=== PATIENT | male | born 1975 | race Caucasian/White ===

== ENCOUNTER 2018-01-06 21:57 | Inpatient (IN) | payer OTHER ==
[~2018-01-06] VITALS: Ht 172.7 cm; Wt 121.0 kg
[~2018-01-06 21:57] MED LIST: ALPR-411 PO; ASPI81TA28 PO; LISI-461 PO; PRED20TA PO; PRT/20 PO; TAMS0.4C38 PO
[2018-01-06] MEDS ORDERED: SODIUM CHLORIDE 0.9% 1000ML 1,000 ML IV STA ×2 (22:14→22:38)
[2018-01-06] MEDS ORDERED: VLT50 PO (22:17)
[2018-01-06] MEDS ORDERED: CYCL10TA6 PO (22:17)
[2018-01-06] MEDS ORDERED: SULF-302 PO (22:19)
[2018-01-06] MEDS ORDERED: VANCOMYCIN IV 2,750 MG in SODIUM CHLORIDE 0.9% 500ML 500 ML IV STA (22:20)
[2018-01-06] MEDS ORDERED: IMIPENEM/CILASTATIN IV 500 MG in DEXTROSE 5% 100ML 100 ML IV STA (22:20)
[2018-01-06] MEDS ORDERED: VANCOMYCIN CONSULT ACTIVE PRN (22:30)
[2018-01-06] MEDS ORDERED: OPTIRAY 320 IV PRN (22:30)
[2018-01-06] MEDS ORDERED: CLINDAMYCIN 600 MG/54 ML D5W IV ONE (22:30)
[2018-01-06 22:40] LABS: BASO % 0.2 %; BASO ABS # 0.03 K/uL (0-0.2); EOS % 1.4 %; HEMATOCRIT 43.5 % (42-52); HEMOGLOBIN 14.9 g/dL (14.0-18.0); IG# 0.03 K/uL (0.00-0.02); LYMPH ABS # 2.51 K/uL (1.2-3.4); MEAN CELL VOLUME 90.4 fL (80-100); MEAN CORPUSCULAR HGB CONC 34.3 g/dl (32-36); MEAN PLATELET VOLUME 11.1 fL (7.4-10.4); MONO % 7.1 %; MONO ABS # 0.99 K/uL (0.11-0.59); NEUT % 73.1 %; NEUT ABS # 10.15 K/uL (1.4-6.5); PLATELET COUNT 253 K/uL (130-400); RED CELL DISTRIBUTION WIDTH CV 12.9 % (11.5-14.5); RED CELL DISTRIBUTION WIDTH SD 42.5 fL (36.4-46.3); WHITE BLOOD COUNT 13.91 K/uL (4.8-10.8)
[2018-01-06 22:50] LABS: INR 0.9 (0.9-1.1); PTT PATIENT 30.3 SECONDS (21.0-31.0)
[2018-01-06 23:04] LABS: ALBUMIN 3.4 gm/dl (3.4-5.0); CALCIUM 8.7 mg/dl (8.5-10.1); POTASSIUM 3.7 mmol/L (3.5-5.1); TOTAL PROTEIN 7.7 gm/dl (6.4-8.2)
[2018-01-07] MEDS ORDERED: NICOTINE 14 MG/24 HR TDSY TD ONE (00:42)
[2018-01-07] MEDS ORDERED: MoRPHine SULFATE 4 MG/ML 1 ML CARP\\VIAL IV PRN (00:45)
[2018-01-07] MEDS ORDERED: ACETAMINOPHEN 325 MG TAB PO PRN (00:45)
[2018-01-07] MEDS ORDERED: IBUPROFEN 200 MG TAB PO PRN (00:45)
[2018-01-07] MEDS ORDERED: KETOROLAC TROMETHAMINE 30 MG/ML VIAL IV PRN (00:45)
[2018-01-07] MEDS ORDERED: LORAZEPAM 2 MG/ML 1 ML VIAL IV PRN (00:45)
[2018-01-07] MEDS ORDERED: PROCHLORPERAZINE INJ 5 MG in SYRINGE 4 ML IV PRN (00:45)
--- NOTE | 2018-01-07 01:23 | Progress Note ---
Progress Note Post Crystalloid Evaluation Date: Jan 07, 2018 Time: 01:20 Subjective Patient complaining of perineal pain. Physical Exam Vital Signs: Vital Signs Date Time Temp Pulse Resp B/P (MAP) Pulse Ox O2 Delivery O2 Flow Rate FiO2 01/07/18 01:11 90 18 147/85 93 01/06/18 21:59 36.7 Lungs: normal breath sounds Heart: regular rate, rhythm Capillary Refill: Normal (less than 2 seconds) Skin: [place] Assessment & Plan Severe sepsis secondary to perineal cellulitis SIRS plus lactic acid elevation CS, Doxycycline, Cipro. IVF
[2018-01-07] MEDS ORDERED: NSS + 20MEQ KCL 1000ML 1,000 ML IV ONE (02:00)
[2018-01-07 02:05] VITALS: BP 152/93; PULSE 84; TEMP 36.9; Ht 172.7 cm; Wt 121.0 kg
--- NOTE | 2018-01-07 02:19 | HISTORY & PHYSICAL EXAMINATION ---
DATE OF ADMISSION: 01/07/2018 PCP : Dr. Alfred CHIEF COMPLAINT: "bump on my balls" HISTORY OF PRESENT ILLNESS: History obtained from patient and records. Medical history is significant for hypertension, arthritis, ongoing tobacco abuse. Recent confinement under Orthopedics service last October 2014 for right shoulder surgery. Four-day history of painful swelling close to the testicles- "bump on my ball." No trauma. No previous episodes. No abdominal/back pain. No diarrhea, no rectal pain. No dysuria. No fever, no chills. Was seen at urgent care center in [place]. Prescribed Bactrim. Surgery referral recommended. Patient consulted ER due to worsening swelling. Patient received IV Vancomycin and Imipenem at the ER. MEDICAL HISTORY: As above. SURGERIES: Orthopedic procedures. Facial wound repair for dog bite from childhood. HOME MEDICATIONS: Include lisinopril, diclofenac, Flexeril, Protonix, Bactrim. ALLERGIES: CODEINE, TRAMADOL. FAMILY HISTORY: Diabetes. PERSONAL AND SOCIAL HISTORY: Half pack daily. No chronic intake of alcoholic beverages. glass work REVIEW OF SYSTEMS: As per HPI, all 10 systems reviewed, all other ROS negative. PHYSICAL EXAMINATION: VITAL SIGNS: Blood pressure was noted to be 178/102, later 130/80, pulse rate 95, RR 18, temperature 36.7, sats 96 on room air. GENERAL: Noted to be obese, looks older than stated age, no respiratory distress. SKIN: Normal color, warm. HEENT: Alopecia, bespectacled. Ragan palpebral conjunctivae. No ptosis. Dry mucosa. Healed scar, left zygomatic area. NECK: Short, supple. CHEST: Clear to auscultation, no tenderness. HEART: Regular rate and rhythm. No murmur. ABDOMEN/PELVIS: Some distention, nontender. No diarrhea, no rectal pain. Tender induration, perineal area. EXTREMITIES: No edema, no tenderness, no gross deformities. NEUROLOGIC: Coherent, no gross focality. LABORATORY DATA: Hemoglobin was noted to be 14.9, hematocrit 42.5, white blood cell count 13.9, platelets noted to be 253. Sodium noted to be 137, potassium 4, chloride 103, CO2 of 25, glucose 142. Point of care lactic acid 2.04. CT pelvis initial read, increased markings, right perineal soft tissues, nonspecific, no fluid collection. ASSESSMENT: 1. Severe sepsis secondary to perineal cellulitis SIRS plus lactic acid elevation Failed outpatient Rx 2. Hypertension, stable. 3. Ongoing tobacco abuse. 4. Hyperglycemia ro DM. PLAN: GMF CS, Doxycycline, Cipro. Local measures for perianal cellulitis. May need Surgery eval if with worsening. Check hemoglobin A1c. Nicotine patch. DVT prophylaxis, Lovenox subQ. Full code. MTDD
[2018-01-07] MEDS ORDERED: LORAZEPAM INJ 0.5 MG in SYRINGE 0.75 ML IV PRN (02:45)
[2018-01-07] MEDS: CIPROFLOXACIN 400MG / D5W IV SCH ×2 (04:57→15:36)
--- NOTE | 2018-01-07 05:37 | EMERGENCY ROOM VISIT NOTE ---
History First contact with patient: 22:02 Chief Complaint: TESTICULAR PAIN Stated Complaint: TESTICULAR PAIN Nursing Triage Summary: Pt presents with c/o right testicular lump. States seen at urgent care and was told to follow up with surgeon. States told at that time if sx worsened to come to the ER. Pt reports increased pain. Denies open areas/drainage. History of Present Illness The patient is a 42 year old male who presents to the Emergency Room with complaints of severe increasing perineal pain for the past few days who went to urgent care on and was placed on Bactrim. Patient states the pain and swelling has gotten worse. He describes the pain as severe, 8 out of 10. Worse with palpation and better with rest. Patient denies history of diabetes, recreational drug use or IV drug abuse. She occasionally smokes. No control. Patient complains of pain from his scrotum to his rectal area. Patient denies chest pain, dyspnea, fever, chills, nausea, vomiting, diarrhea, urinary symptoms, penile pain, rectal pain. Review of Systems An 10 system review of systems was completed with positives and pertinent negatives listed in the HPI. Past Medical/Surgical History Medical Problems: (1) Anxiety State Nos (2) Calculus Of Kidney (3) Esophageal Reflux (4) Hypertension Nos (5) Sepsis (6) Tobacco Use Disorder Surgical Problems: (1) History of arthroscopy of shoulder Family History Patient reports no known family medical history. Social History Smoking Status: Current Every Day Smoker Alcohol Use: occasionally Marital Status: Occupation Status: employed Current/Historical Medications Scheduled Cyclobenzaprine Hcl (Flexeril), 10 MG PO DAILY Diclofenac Sod (Diclofenac Sodium Dr), 50 MG PO BID Lisinopril (Lisinopril), 10 MG PO QAM Pantoprazole (Protonix), 20 MG PO QAM Sulfamethoxazole-Trimethoprim (Smz-Tmp Ds), 1 TAB PO BID Physical Exam Vital Signs Date Time Temp Pulse Resp B/P (MAP) Pulse Ox O2 Delivery O2 Flow Rate FiO2 01/06/18 23:32 95 18 133/87 96 Room Air 01/06/18 21:59 36.7 109 20 178/102 96 Room Air Physical Exam VITALS: Vitals are noted on the nurse's note and reviewed by myself. Vital signs hypertensive. GENERAL: White male, in no acute distress, nondiaphoretic, well-developed well- nourished. SKIN: The perineum is erythematous and edematous and exquisitely tender to palpation concerning for infection. The rest of the skin was without rashes, erythema, edema, or bruising. There is no tenting of the skin. Capillary reflex less than 2 seconds. HEAD: Normocephalic atraumatic. EARS: External auditory canals clear, tympanic membranes pearly hardy without erythema or effusion bilaterally. EYES: Pupils equal round and reactive to light and accommodation. Conjunctivae without injection, sclerae without icterus. Extraocular movements intact. NOSE: Patent, turbinates without inflammation or discharge. MOUTH: Mucous membranes moist. Pharynx without erythema or exudate. Uvula midline. Airway patent. Tongue does not deviate. NECK: Supple without nuchal rigidity. No lymphadenopathy. No thyromegaly. Cervical spine is nontender. No JVD. HEART: Regular rate and rhythm without murmurs gallops or rubs. LUNGS: Clear to auscultation bilaterally without wheezes, rales or rhonchi. No retractions or accessory muscle use. ABDOMEN: Positive bowel sounds x 4. Normal tympanic percussion. Soft, nontender, without masses or organomegaly. Gonzalez sign negative. No guarding or rebound tenderness. No CVA tenderness exam: Normal male genitalia, testicles nontender to palpation, perineum erythematous and edematous and exquisitely tender to palpation concerning for infection. No crepitus. MUSCULOSKELETAL: No muscle atrophy, erythema, or edema noted. NEURO: Patient was alert and oriented to person place and time. Normal sensation to light and sharp touch. No focal neurological deficits. Medical Decision & Procedures Laboratory Results 01/06/18 22:28 Test 01/06/18 22:28 01/06/18 22:34 01/06/18 23:30 RDW Standard Deviation 42.5 fL (36.4-46.3) RDW Coefficient of Variation 12.9 % (11.5-14.5) White Blood Count 13.91 K/uL (4.8-10.8) Red Blood Count 4.81 M/uL (4.7-6.1) Hemoglobin 14.9 g/dL (14.0-18.0) Hematocrit 43.5 % (42-52) Mean Corpuscular Volume 90.4 fL (80-100) Mean Corpuscular Hemoglobin 31.0 pg (25-34) Mean Corpuscular Hemoglobin Concent 34.3 g/dl (32-36) Platelet Count 253 K/uL (130-400) Mean Platelet Volume 11.1 fL (7.4-10.4) Neutrophils (%) (Auto) 73.1 % Lymphocytes (%) (Auto) 18.0 % Monocytes (%) (Auto) 7.1 % Eosinophils (%) (Auto) 1.4 % Basophils (%) (Auto) 0.2 % Neutrophils # (Auto) 10.15 K/uL (1.4-6.5) Lymphocytes # (Auto) 2.51 K/uL (1.2-3.4) Monocytes # (Auto) 0.99 K/uL (0.11-0.59) Eosinophils # (Auto) 0.20 K/uL (0-0.5) Basophils # (Auto) 0.03 K/uL (0-0.2) Immature Granulocyte % (Auto) 0.2 % Immature Granulocyte # (Auto) 0.03 K/uL (0.00-0.02) Erythrocyte Sedimentation Rate 17 mm/hr (0-14) Prothrombin Time 9.4 SECONDS (9.0-12.0) Prothromb Time International Ratio 0.9 (0.9-1.1) Activated Partial Thromboplast Time 30.3 SECONDS (21.0-31.0) Partial Thromboplastin Ratio 1.2 Anion Gap 9.0 mmol/L (3-11) Est Creatinine Clear Calc Drug Dose 122.1 ml/min Estimated GFR () 107.9 Estimated GFR (Non- 93.1 BUN/Creatinine Ratio 11.0 (10-20) Calcium Level 8.7 mg/dl (8.5-10.1) Magnesium Level 2.0 mg/dl (1.8-2.4) Total Bilirubin 0.2 mg/dl (0.2-1) Aspartate Amino Transf (AST/SGOT) 22 U/L (15-37) Alanine Aminotransferase (ALT/SGPT) 45 U/L (12-78) Alkaline Phosphatase 92 U/L (45-117) C-Reactive Protein 3.88 mg/dl (0-0.29) Total Protein 7.7 gm/dl (6.4-8.2) Albumin 3.4 gm/dl (3.4-5.0) Globulin 4.3 gm/dl (2.5-4.0) Albumin/Globulin Ratio 0.8 (0.9-2) Procalcitonin < 0.05 ng/ml (0-0.5) Thyroid Stimulating Hormone (TSH) 4.430 uIu/ml (0.300-4.500) Bedside Lactic Acid Venous 2.04 mmol/L (0.90-1.70) Urine Color YELLOW Urine Appearance CLEAR (CLEAR) Urine pH 7.0 (4.5-7.5) Urine Specific [place] 1.043 (1.000-1.030) Urine Protein NEG (NEG) Urine Glucose (UA) NEG (NEG) Urine Ketones NEG (NEG) Urine Occult Blood NEG (NEG) Urine Nitrite NEG (NEG) Urine Bilirubin NEG (NEG) Urine Urobilinogen NEG (NEG) Urine Leukocyte Esterase NEG (NEG) Urine WBC (Auto) 0 /hpf (0-5) Urine RBC (Auto) 0-4 /hpf (0-4) Urine Hyaline Casts (Auto) 0 /lpf (0-5) Urine Epithelial Cells (Auto) 0-5 /lpf (0-5) Urine Bacteria (Auto) NEG (NEG) Medications Administered Medications (Trade) Dose Ordered Sig/Josué Route Start Time Stop Time Status Last Admin Dose Admin Sodium Chloride 1,000 ml @ 999 mls/hr Q1H1M STAT IV 01/06/18 22:14 01/06/18 23:14 DC 01/06/18 22:44 999 MLS/HR Clindamycin Phosphate (Cleocin 600mg/ 54ml D5W) 600 mg ONE ONCE IV 01/06/18 22:30 01/06/18 22:31 DC 01/06/18 22:49 600 MG Vancomycin HCl 2750 mg/Sodium Chloride 555 ml @ 200 mls/hr ONE STAT IV 01/06/18 22:20 01/07/18 01:06 DC 01/06/18 22:44 200 MLS/HR Imipenem/ Cilastatin Sodium 500 mg/Dextrose 110 ml @ 100 mls/hr NOW STAT IV 01/06/18 22:20 01/06/18 23:25 DC 01/06/18 23:57 100 MLS/HR Sodium Chloride 1,000 ml @ 999 mls/hr Q1H1M STAT IV 01/06/18 22:38 01/06/18 23:38 DC 01/06/18 22:44 999 MLS/HR ED Course Prior records reviewed and summarized as above. Triage Nursing notes reviewed. Additional history obtained from family The patient's history was concerning for swelling and redness of the skin to the perineal area. Differential diagnosis: Etiologies such as FG, cellulitis, abscess, MRSA infection, necrotizing fasciitis, dermatitis, drug eruption, as well as others were entertained.. Physical examination: as above ER treatment provided: Cleocin, vanco, Primaxin, NSS On reassessment the patient felt better. Diagnostics interpreted by me: The labs revealed leukocytosis. Hyperglycemia without DKA. Elevated lactic acid Imaging studies: CT PELVIS: Slight increased markings in the right perineal soft tissues. This is nonspecific. No fluid collection. Radiologist: Yuan Castillo MD Study ready at 23:29 and initial results transmitted at 23:51 Consultation: A consultation was placed with Dr. Hernandez, hospitalist. The case was discussed and diagnostics were reviewed. The patient was evaluated in the ER for further treatment. This appears to be worsening cellulitis to the perineum. Patient's been on Bactrim. Symptoms have gotten worse. He was given broad-spectrum antibiotics. He was hydrated as above. He will be evaluated by medicine for possible admission for failure outpatient. Patient had no signs of Andrew's gangrene on exam. There was no crepitus or free air. By the evaluation outlined above emergent etiologies such as abscess, as well as others were deemed relatively unlikely. The pt informed about the findings as listed above. All questions were answered and pleased with the treatment. Case reviewed with my attending The chart was completed utilizing [employer] Speech voice recognition software. Grammatical errors, random word insertions, pronoun errors, and incomplete sentences are an occassional consequence of this system due to software limitations, ambient noise, and hardware issues. Any formal questions or concerns about the content, text, or information contained within the body of this dictation should be directly addressed to the physician business development assistant for clarification. Medical Decision As above Medication Reconcilliation Current Medication List: was personally reviewed by me Blood Pressure Screening Patient's blood pressure: Elevated blood pressure Blood pressure disposition: Elevated BP felt to be situational Impression Primary Impression: Cellulitis of perineum Departure Information Dispostion Being Evaluated By Hospitalist Condition GOOD Referrals Bautista Alfred M.D. (PCP) Patient Instructions [facility]
[2018-01-07 06:37] LABS: BASO % 0.1 %; BASO ABS # 0.01 K/uL (0-0.2); EOS % 2.2 %; EOS ABS # 0.22 K/uL (0-0.5); HEMATOCRIT 42.6 % (42-52); HEMOGLOBIN 14.5 g/dL (14.0-18.0); IG# 0.03 K/uL (0.00-0.02); LYMPH % 18.7 %; LYMPH ABS # 1.91 K/uL (1.2-3.4); MEAN PLATELET VOLUME 11.3 fL (7.4-10.4); MONO % 10.4 %; MONO ABS # 1.06 K/uL (0.11-0.59); NEUT % 68.3 %; NEUT ABS # 6.99 K/uL (1.4-6.5); PLATELET COUNT 236 K/uL (130-400); RED CELL DISTRIBUTION WIDTH CV 13.1 % (11.5-14.5); RED CELL DISTRIBUTION WIDTH SD 43.5 fL (36.4-46.3); WHITE BLOOD COUNT 10.22 K/uL (4.8-10.8)
--- NOTE | 2018-01-07 07:06 | DIAGNOSTIC IMAGING REPORT ---
PELVIS W/IV CONT ONLY (CT) HISTORY: 42 years-old Male acute pain and swelling within the perineal soft tissues and scrotum with concern for possible abscess. COMPARISON: CT abdomen and pelvis 01/29/2015 TECHNIQUE: Multiple axial CT images of the pelvis were obtained following the intravenous administration of 90 mL Optiray 320 IV contrast. A dose lowering technique was used consistent with the principals of DANO. FINDINGS: No acute intrapelvic abnormality identified. Rectosigmoid, terminal ileum and appendix appear normal. Bladder is within normal limits. Iliac vasculature appears patent. Mildly enlarged bilateral inguinal chain lymph nodes measuring up to 12 mm in short axis on the right are noted. There is moderate skin thickening with subcutaneous edema about the posterior scrotum with extension into the right perineum. No peripherally enhancing fluid collection or subcutaneous emphysema. The anal and perianal tissues appear unremarkable. There may be a small right hydrocele. Muscle of the pelvis appear unremarkable. Facet arthropathy of the lower lumbar spine. No acute fracture or dislocation. IMPRESSION: 1. No acute intrapelvic abnormality identified. Normal appendix. 2. Moderate skin thickening with subcutaneous stranding involving the posterior scrotum with mild subcutaneous edema extending into the right perineal tissues suggests cellulitis/phlegmon. No evidence of abscess or fasciitis. 3. Mild bilateral inguinal chain adenopathy, likely reactive. The above report was generated using voice recognition software. It may contain grammatical, syntax or spelling errors. Electronically signed by: Chaparro Soliman M.D. 01/07/2018 7:05 AM Dictated Date/Time: 01/07/2018 7:00 AM
[2018-01-07] MEDS: DOXYCYCLINE IV 100 MG in DEXTROSE 5% 100ML 100 ML IV SCH ×2 (07:11→17:32)
[2018-01-07 07:29] VITALS: BP 124/80; PULSE 84; TEMP 36.9; O2SAT 96
[2018-01-07] MEDS: LACTOBACILLUS ACIDOPHILUS 1 GM PACK PO SCH ×3 (08:41→15:36)
[2018-01-07] MEDS: PANTOprazole SOD 40 MG TAB PO SCH (08:41)
[2018-01-07] MEDS: NICOTINE 14 MG/24 HR TDSY TD SCH (08:41)
[2018-01-07] MEDS: LISINOPRIL 10 MG TAB PO SCH (08:41)
[2018-01-07] MEDS: ENOXAPARIN 40 MG/0.4 ML SYR SQ SCH (08:42)
[2018-01-07] MEDS ORDERED: CIPROFLOXACIN CONSULT ACTIVE PRN (09:00)
[2018-01-07 15:00] VITALS: BP 129/83; PULSE 81; TEMP 36.5; O2SAT 96
[2018-01-07] MEDS: OXYCODONE/ACETAMINOPHEN 5-325 TAB PO PRN (21:52)
[2018-01-07 22:55] VITALS: BP 113/66; PULSE 81; TEMP 36.6; O2SAT 95
[2018-01-08] MEDS: CIPROFLOXACIN 400MG / D5W IV SCH ×2 (04:39→16:10)
[2018-01-08 06:37] LABS: HEMOGLOBIN A1C 6.5 % (4.5-5.6)
[2018-01-08] MEDS: DOXYCYCLINE IV 100 MG in DEXTROSE 5% 100ML 100 ML IV SCH ×2 (06:41→18:28)
[2018-01-08] MEDS: LISINOPRIL 10 MG TAB PO SCH (07:55)
[2018-01-08] MEDS: LACTOBACILLUS ACIDOPHILUS 1 GM PACK PO SCH ×3 (07:55→17:17)
[2018-01-08] MEDS: PANTOprazole SOD 40 MG TAB PO SCH (07:55)
[2018-01-08] MEDS: NICOTINE 14 MG/24 HR TDSY TD SCH (07:55)
[2018-01-08 07:56] VITALS: BP 135/87; PULSE 73; TEMP 36.7; O2SAT 96
[2018-01-08] MEDS: ENOXAPARIN 40 MG/0.4 ML SYR SQ SCH (07:57)
[2018-01-08] MEDS: OXYCODONE/ACETAMINOPHEN 5-325 TAB PO PRN ×2 (10:04→16:17)
--- NOTE | 2018-01-08 12:55 | Progress Note ---
Subjective Date of Service: Jan 08, 2018. Subjective Pt evaluation today including: conversation w/ patient, physical exam, lab review, review of studies, review of inpatient medication list Saw/examined the patient in room 263 He's doing better, states his perineum is not as tender or swollen as it was Cellulitic appearance remains but appears to be improving Eager to go home Problem List Medical Problems: (1) Cellulitis of perineum Status: Acute Review of Systems Constitutional: No fever, No chills Respiratory: No shortness of breath Cardiac: No chest pain Abdomen: No pain, No nausea, No vomiting, No diarrhea Male : + problem reported (perineal swelling) Medications Current Inpatient Medications Medications (Trade) Dose Ordered Sig/Josué Route Start Time Stop Time Status Last Admin Dose Admin Ioversol (Optiray 320) 100 ml UD PRN IV 01/06/18 22:30 01/10/18 22:29 Nicotine (Nicoderm Cq 14MG Patch) 1 patch QAM TD 01/07/18 09:00 02/06/18 08:59 01/08/18 07:55 1 PATCH Miscellaneous (Remove Nicoderm Patch) 1 ea HS N/A 01/07/18 21:00 02/06/18 20:59 Doxycycline Hyclate 100 mg/ Dextrose 110 ml @ 50 mls/hr Q12H IV 01/07/18 06:00 01/17/18 05:59 01/08/18 06:41 50 MLS/HR Ciprofloxacin (Consult) 1 ea UD PRN N/A 01/07/18 09:00 02/06/18 08:59 Ketorolac Tromethamine (Toradol Inj) 30 mg Q6H PRN IV 01/07/18 00:45 01/12/18 00:44 Ibuprofen (Advil Tab) 400 mg Q6H PRN PO 01/07/18 00:45 02/06/18 00:44 Lorazepam (Ativan Inj) 0.5 mg Q4H PRN IV 01/07/18 00:45 02/06/18 00:44 Prochlorperazine Edisylate 5 mg/ Syringe 5 ml @ 5 mls/min Q6H PRN IV 01/07/18 00:45 02/06/18 00:44 Morphine Sulfate (MoRPHine SULFATE INJ) 4 mg Q6H PRN IV 01/07/18 00:45 01/21/18 00:44 Oxycodone/ Acetaminophen (Percocet 5-325mg Tab) 1 tab Q6H PRN PO 01/07/18 00:45 01/21/18 00:44 01/08/18 10:04 1 TAB Enoxaparin Sodium (Lovenox Inj) 40 mg Q24H SQ 01/07/18 08:00 02/06/18 07:59 Acetaminophen (Tylenol Tab) 650 mg Q4H PRN PO 01/07/18 00:45 02/06/18 00:44 Lactobacillus Acidophilus (Lactinex Granules Pack) 1 gm TIDM PO 01/07/18 08:00 02/06/18 07:59 01/08/18 12:05 1 GM Lisinopril (Zestril Tab) 10 mg QAM PO 01/07/18 09:00 02/06/18 08:59 01/08/18 07:55 10 MG Pantoprazole Sodium (Protonix Tab) 40 mg QAM PO 01/07/18 09:00 02/06/18 08:59 01/08/18 07:55 40 MG Ciprofloxacin/ Dextrose 400 mg/ Prmx 200 ml @ 100 mls/hr Q12H IV 01/07/18 04:00 01/17/18 03:59 01/08/18 04:39 100 MLS/HR Lorazepam 0.5 mg/ Syringe 1 ml @ 1 mls/min Q4H PRN IV 01/07/18 02:45 02/06/18 02:44 Objective Vital Signs Date Time Temp Pulse Resp B/P (MAP) Pulse Ox O2 Delivery O2 Flow Rate FiO2 01/08/18 08:00 Room Air 01/08/18 07:56 36.7 73 18 135/87 (103) 96 Room Air 01/08/18 00:00 Room Air 01/07/18 22:55 36.6 81 18 113/66 (82) 95 Room Air 01/07/18 17:00 Room Air 01/07/18 15:00 36.5 81 16 129/83 (98) 96 Room Air Physical Exam General Appearance: no apparent distress Respiratory/Chest: lungs clear, normal breath sounds, no respiratory distress, no accessory muscle use Cardiovascular: regular rate, rhythm, no edema, no murmur Abdomen: + pertinent finding (perineal swelling, erythema, mildly warm to touch ) Extremities: normal inspection, no pedal edema Neurologic/Psychiatric: no motor/sensory deficits, alert, normal mood/affect Assessment and Plan This is a 42 year old obese male with a past medical history of HTN, GERD - presents with perineal cellulitis Perineal Cellulitis - was on Bactrim x2 days, with no help - presented here, received IV Cipro and Doxy with good improvement - afebrile, white count resolved - will likely d/c home on 01/08 with oral Cipro and Doxycycline New Onset DM2 - Ha1c is 6.5%, BSGs elevated on admission - will not start any medication, recommended dietary changes with outpatient PCP follow-up and repeat Ha1c in 3 months HTN - continue Lisinopril DVT ppx - Lovenox FULL CODE
[2018-01-08 15:34] VITALS: BP 131/78; PULSE 77; TEMP 36.7; O2SAT 95
[2018-01-08 16:00] VITALS: O2SAT 95
[2018-01-09] VITALS: BP 135/88; PULSE 83; TEMP 37.1; O2SAT 95
[2018-01-09] MEDS: CIPROFLOXACIN 400MG / D5W IV SCH (04:04)
[2018-01-09] MEDS: DOXYCYCLINE IV 100 MG in DEXTROSE 5% 100ML 100 ML IV SCH (06:04)
[2018-01-09 07:08] LABS: HEMOGLOBIN 16.6 g/dL (14.0-18.0); MEAN CELL VOLUME 92.1 fL (80-100); MEAN CORPUSCULAR HEMOGLOBIN 30.6 pg (25-34); MEAN CORPUSCULAR HGB CONC 33.2 g/dl (32-36); PLATELET COUNT 277 K/uL (130-400); RED CELL DISTRIBUTION WIDTH CV 13.2 % (11.5-14.5); WHITE BLOOD COUNT 10.45 K/uL (4.8-10.8)
[2018-01-09 07:35] LABS: CALCIUM 9.4 mg/dl (8.5-10.1); CREATININE 0.86 mg/dl (0.60-1.40)
[2018-01-09 07:47] VITALS: BP 119/87; PULSE 101; TEMP 36.8; O2SAT 93
[2018-01-09] MEDS: ENOXAPARIN 40 MG/0.4 ML SYR SQ SCH (07:52)
[2018-01-09] MEDS: PANTOprazole SOD 40 MG TAB PO SCH (07:53)
[2018-01-09] MEDS: LACTOBACILLUS ACIDOPHILUS 1 GM PACK PO SCH ×2 (07:53→12:48)
[2018-01-09] MEDS: LISINOPRIL 10 MG TAB PO SCH (07:54)
[2018-01-09] MEDS: NICOTINE 14 MG/24 HR TDSY TD SCH (07:54)
[2018-01-09] MEDS: OXYCODONE/ACETAMINOPHEN 5-325 TAB PO PRN (07:59)
--- NOTE | 2018-01-09 11:27 | Progress Note ---
Subjective Date of Service: Jan 09, 2018. Subjective Pt evaluation today including: conversation w/ patient, physical exam, lab review, review of studies, review of inpatient medication list Saw/examined the patient in room 263 He's doing well today; feels much better and is eager to go home Denies any chest pain/shortness of breath, denies fevers/chills Perineal cellulitis improving Problem List Medical Problems: (1) Cellulitis of perineum Status: Acute Review of Systems Constitutional: No fever, No chills Respiratory: No shortness of breath Cardiac: No chest pain Abdomen: No pain, No nausea, No vomiting, No diarrhea Musculoskeletal: No joint pain Medications Current Inpatient Medications Medications (Trade) Dose Ordered Sig/Joséu Route Start Time Stop Time Status Last Admin Dose Admin Ioversol (Optiray 320) 100 ml UD PRN IV 01/06/18 22:30 01/10/18 22:29 Nicotine (Nicoderm Cq 14MG Patch) 1 patch QAM TD 01/07/18 09:00 02/06/18 08:59 01/09/18 07:54 1 PATCH Miscellaneous (Remove Nicoderm Patch) 1 ea HS N/A 01/07/18 21:00 02/06/18 20:59 01/08/18 20:34 1 EA Ciprofloxacin (Consult) 1 ea UD PRN N/A 01/07/18 09:00 02/06/18 08:59 Ketorolac Tromethamine (Toradol Inj) 30 mg Q6H PRN IV 01/07/18 00:45 01/12/18 00:44 Ibuprofen (Advil Tab) 400 mg Q6H PRN PO 01/07/18 00:45 02/06/18 00:44 Lorazepam (Ativan Inj) 0.5 mg Q4H PRN IV 01/07/18 00:45 02/06/18 00:44 Prochlorperazine Edisylate 5 mg/ Syringe 5 ml @ 5 mls/min Q6H PRN IV 01/07/18 00:45 02/06/18 00:44 Morphine Sulfate (MoRPHine SULFATE INJ) 4 mg Q6H PRN IV 01/07/18 00:45 01/21/18 00:44 Oxycodone/ Acetaminophen (Percocet 5-325mg Tab) 1 tab Q6H PRN PO 01/07/18 00:45 01/21/18 00:44 01/09/18 07:59 1 TAB Enoxaparin Sodium (Lovenox Inj) 40 mg Q24H SQ 01/07/18 08:00 02/06/18 07:59 Acetaminophen (Tylenol Tab) 650 mg Q4H PRN PO 01/07/18 00:45 02/06/18 00:44 Lactobacillus Acidophilus (Lactinex Granules Pack) 1 gm TIDM PO 01/07/18 08:00 02/06/18 07:59 01/09/18 07:53 1 GM Lisinopril (Zestril Tab) 10 mg QAM PO 01/07/18 09:00 02/06/18 08:59 01/09/18 07:54 10 MG Pantoprazole Sodium (Protonix Tab) 40 mg QAM PO 01/07/18 09:00 02/06/18 08:59 01/09/18 07:53 40 MG Lorazepam 0.5 mg/ Syringe 1 ml @ 1 mls/min Q4H PRN IV 01/07/18 02:45 02/06/18 02:44 Ciprofloxacin (Cipro Tab) 500 mg BID PO 01/09/18 21:00 01/17/18 03:59 Doxycycline Hyclate (Vibramycin Cap) 100 mg BID PO 01/09/18 21:00 01/17/18 05:59 Objective Vital Signs Date Time Temp Pulse Resp B/P (MAP) Pulse Ox O2 Delivery O2 Flow Rate FiO2 01/09/18 08:00 Room Air 01/09/18 07:47 36.8 101 18 119/87 (98) 93 Room Air 01/09/18 00:00 37.1 83 20 135/88 (104) 95 Room Air 01/09/18 00:00 Room Air 01/08/18 16:00 95 Room Air 01/08/18 15:34 36.7 77 20 131/78 (95) 95 Physical Exam General Appearance: no apparent distress, + obese Respiratory/Chest: lungs clear, normal breath sounds, no respiratory distress, no accessory muscle use Cardiovascular: regular rate, rhythm, no edema, no murmur Abdomen: + pertinent finding (erythema; perineal cellulitis, improved) Laboratory Results Last 24 Hours Test 01/09/18 06:37 White Blood Count 10.45 K/uL Red Blood Count 5.43 M/uL Hemoglobin 16.6 g/dL Hematocrit 50.0 % Mean Corpuscular Volume 92.1 fL Mean Corpuscular Hemoglobin 30.6 pg Mean Corpuscular Hemoglobin Concent 33.2 g/dl RDW Standard Deviation 44.0 fL RDW Coefficient of Variation 13.2 % Platelet Count 277 K/uL Mean Platelet Volume 11.0 fL Sodium Level 137 mmol/L Potassium Level 4.0 mmol/L Chloride Level 101 mmol/L Carbon Dioxide Level 30 mmol/L Anion Gap 6.0 mmol/L Blood Urea Nitrogen 11 mg/dl Creatinine 0.86 mg/dl Est Creatinine Clear Calc Drug Dose 143.0 ml/min Estimated GFR () 124.8 Estimated GFR (Non- 107.7 BUN/Creatinine Ratio 13.3 Random Glucose 110 mg/dl Calcium Level 9.4 mg/dl Assessment and Plan This is a 42 year old obese male with a past medical history of HTN, GERD - presents with perineal cellulitis Sepsis secondary to Perineal Cellulitis 01/09 - will d/c home on Cipro and Doxycycline for another 14 days - check [place] drug monitoring, he gets Vicodin 90 tablets monthly so will not prescribe any other narcotics 01/08 - was on Bactrim x2 days, with no help - presented here, received IV Cipro and Doxy with good improvement - afebrile, white count resolved - will likely d/c home on 01/08 with oral Cipro and Doxycycline New Onset DM2 - Ha1c is 6.5%, BSGs elevated on admission - will not start any medication, recommended dietary changes with outpatient PCP follow-up and repeat Ha1c in 3 months HTN - continue Lisinopril DVT ppx - Lovenox FULL CODE
[2018-01-09] MEDS ORDERED: NICO14DI5 TD (11:28)
[2018-01-09] MEDS ORDERED: CPR500 PO (11:28)
[2018-01-09] MEDS ORDERED: DXY100 PO (11:28)
[2018-01-09] MEDS ORDERED: HYDR-5688 PO (11:30)
--- NOTE | 2018-01-09 11:32 | Discharge Instructions ---
Discharge Instructions Date of Service Jan 09, 2018. Admission Reason for Admission: Sepsis Discharge Discharge Diagnosis / Problem: Sepsis (infection) with cellulitis Discharge Goals Goal(s): Decrease discomfort, Improve function, Diagnostic testing, Therapeutic intervention Activity Recommendations Activity Limitations: resume your previous activity . Instructions / Follow-Up Instructions / Follow-Up Please follow-up with your primary care physician within the next week * You will be on Cipro and Doxycycline (antibiotics) - take these for the next 10 days * Your Ha1c is 6.5% - this is a sign of diabetes - you should monitor your diet and implement an exercise regimen; your primary care doctor should recheck your Ha1c in 3 months Current Hospital Diet Patient's current hospital diet: AHA Diet (Heart Healthy) Discharge Diet Recommended Diet: AHA Diet (Heart Healthy) Pending Studies Studies pending at discharge: no Laboratory Results Hemoglobin A1c Test 01/07/18 00:45 Range/Units Estimated Average Glucose 140 mg/dl Hemoglobin A1c 6.5 H 4.5-5.6 % Medical Emergencies . Who to Call and When: Medical Emergencies: If at any time you feel your situation is an emergency, please call 911 immediately. . Non-Emergent Contact Non-Emergency issues call your: Primary Care Provider . . "Provider Documentation" section prepared by Waldemar Levin. . [place] Drug Monitoring Program Search Results: patient reviewed within database Drug Monitoring Findings: Patient gets Vicodin 90 tablets monthly - will not prescribe further narcotics
--- NOTE | 2018-01-09 11:34 | Discharge Summary ---
Discharge Summary Date of Service Jan 09, 2018. Discharge Summary Admission Date: Jan 07, 2018 at 00:21 Discharge Date: Jan 09, 2018 Discharge Disposition: Home Principal Diagnosis: Sepsis secondary to Perineal Cellulitis New Onset DM2 HTN Medication Reconciliation New Medications: Ciprofloxacin (Ciprofloxacin HCl) 500 Mg Tab 500 MG PO BID for 10 Days, #20 TAB Doxycycline Hyclate (Doxycycline Hyclate) 100 Mg Cap 100 MG PO BID for 10 Days, #20 CAP Nicotine (Nicoderm Cq 14MG Patch) 14 Mg/24 Hr Dis 14 MG TD QAM for 30 Days, #1 BOX Continued Medications: Cyclobenzaprine Hcl (Flexeril) 10 Mg Tab 10 MG PO DAILY, #21 TAB Diclofenac Sod (Diclofenac Sodium Dr) 50 Mg Tabec 50 MG PO BID Hydrocodone/Acetaminophen 5MG/325MG ([place] 5MG/325MG) Tab 1 TABLET PO PRN for Pain, TAB Lisinopril (Lisinopril) 10 Mg Tab 10 MG PO QAM, #30 Pantoprazole (Protonix) 20 Mg Tab 20 MG PO QAM, #30 TAB Discontinued Medications: Sulfamethoxazole-Trimethoprim (Smz-Tmp Ds) 1 Tab Tab 1 TAB PO BID for 7 Days, #14 TAB ORDERED 01/04/18 FOR 7 DAYS. Admission Information HPI (per Admitting provider): DATE OF ADMISSION: 01/07/2018 PCP : Dr. Alfred CHIEF COMPLAINT: "bump on my balls" HISTORY OF PRESENT ILLNESS: History obtained from patient and records. Medical history is significant for hypertension, arthritis, ongoing tobacco abuse. Recent confinement under Orthopedics service last October 2014 for right shoulder surgery. Four-day history of painful swelling close to the testicles- "bump on my ball." No trauma. No previous episodes. No abdominal/back pain. No diarrhea, no rectal pain. No dysuria. No fever, no chills. Was seen at urgent care center in [place]. Prescribed Bactrim. Surgery referral recommended. Patient consulted ER due to worsening swelling. Patient received IV Vancomycin and Imipenem at the ER. MEDICAL HISTORY: As above. SURGERIES: Orthopedic procedures. Facial wound repair for dog bite from childhood. HOME MEDICATIONS: Include lisinopril, diclofenac, Flexeril, Protonix, Bactrim. ALLERGIES: CODEINE, TRAMADOL. FAMILY HISTORY: Diabetes. PERSONAL AND SOCIAL HISTORY: Half pack daily. No chronic intake of alcoholic beverages. glass work REVIEW OF SYSTEMS: As per HPI, all 10 systems reviewed, all other ROS negative. PHYSICAL EXAMINATION: VITAL SIGNS: Blood pressure was noted to be 178/102, later 130/80, pulse rate 95, RR 18, temperature 36.7, sats 96 on room air. GENERAL: Noted to be obese, looks older than stated age, no respiratory distress. SKIN: Normal color, warm. HEENT: Alopecia, bespectacled. Wesley palpebral conjunctivae. No ptosis. Dry mucosa. Healed scar, left zygomatic area. NECK: Short, supple. CHEST: Clear to auscultation, no tenderness. HEART: Regular rate and rhythm. No murmur. ABDOMEN/PELVIS: Some distention, nontender. No diarrhea, no rectal pain. Tender induration, perineal area. EXTREMITIES: No edema, no tenderness, no gross deformities. NEUROLOGIC: Coherent, no gross focality. LABORATORY DATA: Hemoglobin was noted to be 14.9, hematocrit 42.5, white blood cell count 13.9, platelets noted to be 253. Sodium noted to be 137, potassium 4, chloride 103, CO2 of 25, glucose 142. Point of care lactic acid 2.04. CT pelvis initial read, increased markings, right perineal soft tissues, nonspecific, no fluid collection. ASSESSMENT: 1. Severe sepsis secondary to perineal cellulitis SIRS plus lactic acid elevation Failed outpatient Rx 2. Hypertension, stable. 3. Ongoing tobacco abuse. 4. Hyperglycemia ro DM. PLAN: GMF CS, Doxycycline, Cipro. Local measures for perianal cellulitis. May need Surgery eval if with worsening. Check hemoglobin A1c. Nicotine patch. DVT prophylaxis, Lovenox subQ. Full code. Hospital Course This is a 42 year old obese male with a past medical history of HTN, GERD - presents with perineal cellulitis Sepsis secondary to Perineal Cellulitis 01/09 - will d/c home on Cipro and Doxycycline for another 14 days - check [place] drug [place], he gets Vicodin 90 tablets monthly so will not prescribe any other narcotics 01/08 - was on Bactrim x2 days, with no help - presented here, received IV Cipro and Doxy with good improvement - afebrile, white count resolved - will likely d/c home on 01/08 with oral Cipro and Doxycycline New Onset DM2 - Ha1c is 6.5%, BSGs elevated on admission - will not start any medication, recommended dietary changes with outpatient PCP follow-up and repeat Ha1c in 3 months HTN - continue Lisinopril DVT ppx - Lovenox FULL CODE Total time spent on discharge = 45 minutes This includes examination of the patient, discharge planning, medication reconciliation, and communication with other providers. Discharge Instructions Please follow-up with your primary care physician within the next week * You will be on Cipro and Doxycycline (antibiotics) - take these for the next 10 days * Your Ha1c is 6.5% - this is a sign of diabetes - you should monitor your diet and implement an exercise regimen; your primary care doctor should recheck your Ha1c in 3 months
[2018-01-09 12:33] VITALS: BP 119/87; PULSE 101; TEMP 36.8; O2SAT 93
[2018-01-09] MEDS ORDERED: DOXYCYCLINE HYCLATE 100 MG CAP PO SCH (21:00)
[2018-01-09] MEDS ORDERED: CIPROFLOXACIN 500 MG TAB PO SCH (21:00)
== END 2018-01-09 13:20 | disposition home or self-care (01) | DRG 872 ==
LOC: C.EDB 21:58 → C.MS2W 01-07 00:21 → ENRESERV 01-07 00:51
PROVIDERS: ADMIT Family Medicine; ATTEND Family Medicine
DX: A41.9 Sepsis, unspecified organism (principal); L03.315 Cellulitis of perineum; Z68.41 Body mass index [BMI] 40.0-44.9, adult; K21.9 Gastro-esophageal reflux disease without esophagitis; I10 Essential (primary) hypertension; F17.200 Nicotine dependence, unspecified, uncomplicated; Z83.3 Family history of diabetes mellitus; Z88.6 Allergy status to analgesic agent; R73.9 Hyperglycemia, unspecified; Z87.442 Personal history of urinary calculi

== ENCOUNTER 2021-05-05 16:50 | Observation (INO) ==
[2021-05-05] MEDS ORDERED: dexAMETHasone**PF** 10 MG/ML VIAL IV ONE (17:14)
[2021-05-05] MEDS ORDERED: diphenhydrAMINE 50 MG/ML VIAL IV STA (17:14)
[2021-05-05] MEDS ORDERED: FAMOTIDINE 20MG IV PUSH 20 MG/5 ML SYR IV STA (17:14)
[2021-05-05] MEDS ORDERED: SODIUM CHLORIDE 0.9% 1000ML 1,000 ML IV ONE (17:14)
--- NOTE | 2021-05-05 17:19 | Emergency Department Note ---
Impression & Plan Angioedema, Tongue edema ED Provider Note Name: CINDY POWERS Age: 46 Sex: M Arrives Via: Walk-In Informant: Patient ED Provider: Scar Pickering MD Chief Complaint: tongue swelling Impression: As Per Impressions Above Medical Decision Making: Pleasant 46 yr old male with history GERD, HTN, Obesity arrives for evaluation of tongue swelling starting shortly prior to arrival. Used eye drops earlier in day, but otherwise no new medications. Chronically on Lisinopril for years for HTN. On exam he has very large edema of tongue with inability to visualize all but the very front of upper palate. Drooling some but able to breath comfortably through mouth and in no significant distress. Immediately consulted Anesthesia and medications ordered. Shortly there-after Dr Saravia at bedside. Requested monitoring and see how he responds to meds. Dr Woody of ENT in shortly to evaluate as well and agrees with severe airway issues. Dr Manley of Anesthesia also down to evaluate patient and given degree of swelling he feels that holding off on intubation indicated currently. I discussed this with ICU Dr Gee who agrees with starting FFP and placing in ICU. Patient with mild wbc and bsg elevation by labs. He was monitoring very closely in critical care bay over next 2 hours. No improvement in swelling, but no worsening and he is breathing comfortably without distress through his nose. Hospitalist consulted and patient evaluated by them. Prior Medical Record and Triage/Nursing Notes reviewed by Me Additional history obtained from chart Differentials: Medication reaction, angioedema, Allergic reaction, anaphylaxis, abscess, infection, Gracia-Stone syndrome, as well as other pathologies. Vital Signs: reviewed and remarkable for HTN Interventions: decadron 10mg iv, benadryl 50mg iv, pepcid 20mg iv, nss bolus, FFP 2 Units Labs:Reviewed and remarkable for leukocytosis, hyperglycemia Imaging:X ray results are stated below per my interpretation: Chest: 1 view: No infiltrate, no effusion, cardiomegaly without clear evidence failure Cardiac/Tele Monitoring: Cardiac Monitoring: An Order was placed for continuous cardiac monitoring. The monitor shows a rate of 90 with a normal sinus rhythm. Consults:Dr Saravia, Dr Manley, Dr Woody, Dr Gee, Dr Burgess Plan: Disposition:Hospitalization. Condition: Critical but stable History of Present Illness:46 yr old male arrives for evaluation of tongue swelling. Patient with onset tongue swelling over the last hour. He was seen at rn supplemental and had some eye drops placed. Notes shortly afterwards he started feeling tongue was swelling. Started on one side then both sides of tongue. Denies other swelling, rashes, nor symptoms. Did take Benadryl at home without improvement. Denies history of this previously. Patient denies chest pain, sob, neck pain, headache, rashes, itching, nausea, vomiting, back pain, abdominal pain, leg swelling, urinary/bowel symptoms nor other symptoms. No NSAID use. He has been on lisinopril for HTN for many years. ROS: See above HPI for pertinent positives & negatives. A total of 10 systems reviewed and were otherwise negative. Past Medical History:DMII, HTN, GERD, Hypothyroid, Anxiety Past Surgical History:See Below Family History:See Below Social History:See Below Home Medications:See Below Allergies:See Below Vitals:Blood Pressure: 173/115, Pulse 93, RR 22, T 35.9C, O2 96% on RA Physical Exam: GENERAL: Patient is unwell appearing and in minimal distress. EYES: No scleral icterus, unremarkable pupils. ENT: Large swollen mildly protruding edematous tongue. There is small area anterior palate that I can visualize. Mild drooling. Mucous membranes moist, no nasal congestion. NECK: Large obese neck. No masses appreciated, nomeningismus, trachea is midline. RESPIRATORY: No dyspnea. Clear to auscultation and equal bilaterally. No wheeze, no rhonchi. CARDIOVASCULAR: Regular rate and rhythm.No murmurs, rubs, gallops appreciated. GASTROINTESTINAL: Abdomen soft, non-tender, no peritonitis.Bowel sounds positive.No masses appreciated. BACK: No midline tenderness, no CVA tenderness EXTREMITIES: Normal motion all extremities, no cyanosis, no edema. NEUROLOGIC: Alert and oriented, no acute motor or sensory deficits, no focal weakness, cranial nerves grossly intact. SKIN: No rash, no jaundice, no diaphoresis. PSYCH: Appropriate GCS: 15 ED Course: Times/Reassessments: Continuous bedside evaluations and management throughout early course of ED stay with frequent consultations with Anesthesias, ENT, CCM and Hospitalist Critical Care: I have personally spent 35 minutes of critical care time in the direct management of this patient. Angioedema of tongue threatening loss of airway and need to have rapid intervention and management. This was a life/limb threatening event. This 35 minutes is in excess of all separately billable procedures. Scar Pickering MD Past Med/Surg History Social History Smoking Status: Current every day smoker Tobacco Type: Cigarettes Preferred Language: Grenadian Feels Safe at Home: Yes Allergies Allergies Allergy/AdvReac Type Severity Reaction Status Date / Time codeine Allergy Severe RASH Verified 05/05/21 18:38 tramadol Allergy Severe RASH Verified 01/06/18 22:14 Home Meds Home Medications Medication Instructions Recorded Confirmed alprazolam 1 mg tablet 1 mg PO HS 05/05/21 05/05/21 aspirin 81 mg tablet,delayed 81 mg PO QAM 05/05/21 05/05/21 release levothyroxine 25 mcg tablet 25 mcg PO DAILY 05/05/21 05/05/21 lisinopril 10 mg tablet 10 mg PO QPM 05/05/21 05/05/21 metformin 1,000 mg tablet 1,000 mg PO AMPM 05/05/21 05/05/21 pantoprazole 40 mg tablet,delayed 40 mg PO HS 05/05/21 05/05/21 release Results & Data (ED) Vital Signs Vital Signs - 24 hr 05/05/21 16:57 05/05/21 17:39 05/05/21 17:44 Temperature 35.9 C L Temperature Source Temporal Artery Scan Pulse Rate 100 H Pulse Rate [Apical] 102 H Pulse Rate from SpO2 Sensor Respiratory Rate 18 16 Respiratory Effort / Characteristics Non-Labored Respiratory Depth Normal Respiratory Pattern Regular Blood Pressure 170/124 H Blood Pressure [Left Arm] 156/107 H Blood Pressure Mean 139 Blood Pressure Mean [Left Arm] 123 Pulse Oximetry 97 98 Oxygen Delivery Method Room Air Room Air Room Air Oxygen Flow Rate Sepsis Recent Fever Within 48 Hours No Sepsis New/Unexplained Change in Mental Status No Sepsis Action Taken by Nursing No Action Required End-Tidal CO2 05/05/21 17:45 05/05/21 17:50 05/05/21 18:00 Temperature Temperature Source Pulse Rate 101 H 96 H Pulse Rate [Apical] 98 H Pulse Rate from SpO2 Sensor 100 H 97 H Respiratory Rate 21 21 19 Respiratory Effort / Characteristics Respiratory Depth Respiratory Pattern Blood Pressure 164/91 H Blood Pressure [Left Arm] 145/97 H Blood Pressure Mean 115 Blood Pressure Mean [Left Arm] 113 Pulse Oximetry 97 98 98 Oxygen Delivery Method Room Air Room Air Room Air Oxygen Flow Rate Sepsis Recent Fever Within 48 Hours Sepsis New/Unexplained Change in Mental Status Sepsis Action Taken by Nursing End-Tidal CO2 05/05/21 18:15 05/05/21 18:30 05/05/21 18:45 Temperature Temperature Source Pulse Rate 90 91 H 93 H Pulse Rate [Apical] Pulse Rate from SpO2 Sensor 90 93 H 92 H Respiratory Rate 20 14 22 Respiratory Effort / Characteristics Respiratory Depth Respiratory Pattern Blood Pressure 163/108 H 178/115 H 173/115 H Blood Pressure [Left Arm] Blood Pressure Mean 126 136 134 Blood Pressure Mean [Left Arm] Pulse Oximetry 97 98 96 Oxygen Delivery Method Room Air Room Air Room Air Oxygen Flow Rate Sepsis Recent Fever Within 48 Hours Sepsis New/Unexplained Change in Mental Status Sepsis Action Taken by Nursing End-Tidal CO2 36 28 05/05/21 19:00 05/05/21 19:15 05/05/21 19:30 Temperature Temperature Source Pulse Rate 83 84 82 Pulse Rate [Apical] Pulse Rate from SpO2 Sensor 83 86 83 Respiratory Rate 19 12 21 Respiratory Effort / Characteristics Respiratory Depth Respiratory Pattern Blood Pressure 177/110 H 184/108 H 182/118 H Blood Pressure [Left Arm] Blood Pressure Mean 132 133 139 Blood Pressure Mean [Left Arm] Pulse Oximetry 96 95 96 Oxygen Delivery Method Room Air Room Air Nasal Cannula Oxygen Flow Rate 2 Sepsis Recent Fever Within 48 Hours Sepsis New/Unexplained Change in Mental Status Sepsis Action Taken by Nursing End-Tidal CO2 27 37 38 05/05/21 19:45 Temperature Temperature Source Pulse Rate 86 Pulse Rate [Apical] Pulse Rate from SpO2 Sensor 85 Respiratory Rate 15 Respiratory Effort / Characteristics Respiratory Depth Respiratory Pattern Blood Pressure 170/122 H Blood Pressure [Left Arm] Blood Pressure Mean 138 Blood Pressure Mean [Left Arm] Pulse Oximetry 98 Oxygen Delivery Method Nasal Cannula Oxygen Flow Rate 2 Sepsis Recent Fever Within 48 Hours Sepsis New/Unexplained Change in Mental Status Sepsis Action Taken by Nursing End-Tidal CO2 37 Laboratory Data Result diagrams: 05/05/21 17:17 05/05/21 17:17 Lab Results 05/05/21 05/05/21 05/05/21 Range/Units 17:17 17:17 17:42 WBC 14.43 H (4.8-10.8) K/uL RBC 5.12 (4.7-6.1) M/uL Hgb 16.0 (14.0-18.0) g/dL Hct 47.8 (42-52) % MCV 93.4 (80-100) fL MCH 31.3 (25-34) pg MCHC 33.5 (32-36) g/dL RDW Std Deviation 45.8 (36.4-46.3) fL RDW Coeff of Octavia 13.3 (11.5-14.5) % Plt Count 311 (130-400) K/uL MPV 11.1 H (7.4-10.4) fL Immature Gran % (Auto) 0.3 % Neut % (Auto) 69.7 % Lymph % (Auto) 18.6 % Centre % (Auto) 7.4 % Eos % (Auto) 3.7 % Baso % (Auto) 0.3 % Neut # (Auto) 10.04 H (1.4-6.5) K/uL Lymph # (Auto) 2.68 (1.2-3.4) K/uL Centre # (Auto) 1.07 H (0.11-0.59) K/uL Eos # (Auto) 0.54 H (0-0.5) K/uL Baso # (Auto) 0.05 (0-0.2) K/uL Immature Gran # (Auto) 0.05 H (0.00-0.02) K/uL Sodium 135 L (136-145) mmol/L Potassium 4.1 (3.5-5.1) mmol/L Chloride 102 (98-107) mmol/L Carbon Dioxide 29 (21-32) mmol/L Anion Gap 4.0 (3-11) BUN 10 (7-18) mg/dl Creatinine 0.84 (0.6-1.4) mg/dl Est Cr Clr Drug Dosing 142.2 ml/min Est GFR ( Amer) 122.6 ml/min Est GFR (Non-Af Amer) 105.7 ml/min BUN/Creatinine Ratio 11.3 (10-20) Glucose 199 H (70-99) mg/dl Calcium 9.8 (8.5-10.1) mg/dl COVID-19 Eval Order Covid19 at [facility] SARS-CoV-2 (PCR) (Negative) Blood Type Antibody Screen 05/05/21 05/05/21 Range/Units 17:42 18:12 WBC (4.8-10.8) K/uL RBC (4.7-6.1) M/uL Hgb (14.0-18.0) g/dL Hct (42-52) % MCV (80-100) fL MCH (25-34) pg MCHC (32-36) g/dL RDW Std Deviation (36.4-46.3) fL RDW Coeff of Octavia (11.5-14.5) % Plt Count (130-400) K/uL MPV (7.4-10.4) fL Immature Gran % (Auto) % Neut % (Auto) % Lymph % (Auto) % Centre % (Auto) % Eos % (Auto) % Baso % (Auto) % Neut # (Auto) (1.4-6.5) K/uL Lymph # (Auto) (1.2-3.4) K/uL Centre # (Auto) (0.11-0.59) K/uL Eos # (Auto) (0-0.5) K/uL Baso # (Auto) (0-0.2) K/uL Immature Gran # (Auto) (0.00-0.02) K/uL Sodium (136-145) mmol/L Potassium (3.5-5.1) mmol/L Chloride (98-107) mmol/L Carbon Dioxide (21-32) mmol/L Anion Gap (3-11) BUN (7-18) mg/dl Creatinine (0.6-1.4) mg/dl Est Cr Clr Drug Dosing ml/min Est GFR ( Amer) ml/min Est GFR (Non-Af Amer) ml/min BUN/Creatinine Ratio (10-20) Glucose (70-99) mg/dl Calcium (8.5-10.1) mg/dl COVID-19 Eval Order SARS-CoV-2 (PCR) NEGATIVE (Negative) Blood Type A Positive Antibody Screen NEGATIVE Administered Medications Famotidine (Famotidine 20mg/5ml Iv Push) 20 mg IV ONE NELLI Stop: 06/04/21 22:59 Last Admin: 05/05/21 18:47 Dose: 20 mg Documented by: [id number] Discontinued Medications Dexamethasone Sodium Phosphate (DexamethasonePf 10 Mg/Ml Vial) 10 mg IV NOW ONE Stop: 05/05/21 17:15 Last Admin: 05/05/21 17:30 Dose: 10 mg Documented by: [id number] Diphenhydramine HCl (Diphenhydramine 50 Mg/Ml Vial) 50 mg IV NOW STA Stop: 05/05/21 17:15 Last Admin: 05/05/21 17:27 Dose: 50 mg Documented by: [id number] Famotidine (Pepcid 20mg Iv Push) 20 mg in 5 mls @ 2.5 mls/min IV NOW STA Stop: 05/05/21 17:15 Last Admin: 05/05/21 17:33 Dose: 2.5 mls/min Documented by: [id number] Sodium Chloride (Nss 1000ml) 1,000 mls @ 999 mls/hr IV .Q1H1M ONE Stop: 05/05/21 18:14 Last Infusion: 05/05/21 18:37 Dose: 0 mls/hr Documented by: [id number] Admin: 05/05/21 17:36 Dose: 999 mls/hr Documented by: [id number] Imaging Data Radiologist's Impression: Chest X-Ray 05/05/21 17:57 XR chest 1V portable CLINICAL HISTORY: Pre-anesthesia comment swelling TECHNIQUE: Single frontal radiograph of the chest was obtained. Comparison: None available at the time of this dictation. FINDINGS: No lines and tubes are seen. Cardiomegaly is noted. The lungs are clear. No evidence of pleural effusion or pneumothorax. IMPRESSION: No acute chest disease. ACT 112: Negative or not required by law. Electronically signed by: Lonnie Kirk M.D. 05/05/2021 6:16 PM Discharge Plan Visit Data Chief Complaint: Allergic Reaction Stated Complaint: TONGUE IS SWOLLEN AFTER RECIEVING EYE DROPS ED Provider: Scar Pickering Discharge Problem: Angioedema, Tongue edema Discharge Instructions Interventions: ED Discharge Assessment Last Done: 05/05/21 19:51 Forms Stand Alone Forms: My [facility] Prescriptions Prescriptions: No Action metformin 1,000 mg tablet 1,000 mg PO AMPM RF: 0 lisinopril 10 mg tablet 10 mg PO QPM RF: 0 aspirin [Aspir-Low] 81 mg Tablet,Delayed Release (Dr/Ec) 81 mg PO QAM RF: 0 pantoprazole 40 mg tablet,delayed release (DR/EC) 40 mg PO HS RF: 0 levothyroxine 25 mcg tablet 25 mcg PO DAILY RF: 0 alprazolam 1 mg tablet 1 mg PO HS RF: 0 Referrals Referrals: Bautista Alfred MD [Outside Practitioners] -
[2021-05-05 17:33] LABS: Basophils # (auto) 0.05 K/uL (0-0.2); Basophils % (auto) 0.3 %; Eosinophils # (auto) 0.54 K/uL (0-0.5); Eosinophils % (auto) 3.7 %; Hematocrit (blood only) 47.8 % (42-52); Immature Granulocytes # (auto) 0.05 K/uL (0.00-0.02); Immature Granulocytes % (auto) 0.3 %; Lymphocytes # (auto) 2.68 K/uL (1.2-3.4); Lymphocytes % (auto) 18.6 %; Mean Corpuscular Hemoglobin 31.3 pg (25-34); Mean Corpuscular Hgb Conc 33.5 g/dL (32-36); Mean Corpuscular Volume 93.4 fL (80-100); Mean Platelet Volume 11.1 fL (7.4-10.4); Monocytes # (auto) 1.07 K/uL (0.11-0.59); Monocytes % (auto) 7.4 %; Neutrophils # (auto) 10.04 K/uL (1.4-6.5); Neutrophils % (auto) 69.7 %; Platelet Count 311 K/uL (130-400); RDW Coefficient of Variation 13.3 % (11.5-14.5); RDW Standard Deviation 45.8 fL (36.4-46.3); Red Blood Count 5.12 M/uL (4.7-6.1); White Blood Count 14.43 K/uL (4.8-10.8)
[2021-05-05 17:47] LABS: BUN Creatinine Ratio 11.3 (10-20); Calcium 9.8 mg/dl (8.5-10.1); Creatinine Clr Calc Pharmacy 142.2 ml/min; Est GFR (African American) 122.6 ml/min; Est GFR (Non-African American) 105.7 ml/min; Potassium 4.1 mmol/L (3.5-5.1)
[2021-05-05] MEDS ORDERED: SODIUM CHLORIDE 0.9% 250 ML IV PRN (18:00)
--- NOTE | 2021-05-05 18:18 | XRay Report ---
XR chest 1V portable CLINICAL HISTORY: Pre-anesthesia comment swelling TECHNIQUE: Single frontal radiograph of the chest was obtained. Comparison: None available at the time of this dictation. FINDINGS: No lines and tubes are seen. Cardiomegaly is noted. The lungs are clear. No evidence of pleural effus ion or pneumothorax. IMPRESSION: No acute chest disease. ACT 112: Negative or not required by law. Electronically signed by: Lonnie Kirk M.D. 05/05/2021 6:16 PM
--- NOTE | 2021-05-05 18:42 | History & Physical Report ---
Date of Service May 05, 2021 Assessment & Plan (1) Angioedema: Plan: 1) Angioedema -Histamine vs bradykinin-mediated angioedema, unclear cause- possibly ACEI- induced vs allergic reaction to Paremyd eye drops -Anti-histamine regimen ongoing- IV benadryl, IV decadron, IV famotidine, NSS -Administered FFP 2 units, will add TXA if no improvement observed -Pending workup- complement panel C1 C4 -Airway stable at this time with saturation 90+% on RA but concern for potential compromise 2/2 mechanical obstruction- monitor in ICU overnight 2) HTN -Hold home lisinopril given concern for potential bradykinin-induced angioedema 3) Diabetes -Hold home metformin -Admission glucose 199 -Lantus BID, ISS 4) Hypothyroidism -Continue Synthroid FENGI: NPO Code status: Full DVT ppx: Isolation: None Dispo: ICU (2) HTN (hypertension): (3) Diabetes: History of Present Illness Chief Complaint: Tongue swelling Primary Care Provider: Bautista Alfred MD 46 yo M with PMH HTN, DM2, GERD admitted for tongue swelling. Pt was at ophthalmology appointment earlier in afternoon and received dilation eye drops with Paremyd- has never had eye drops before. Approximately 20 minutes after eye drops administered he began to experience abrupt tongue swelling. Tongue was swollen mostly on right side which then evolved over past few hours to generalized swelling. Swelling does not feel painful and still able to converse appropriately. Did not have rashes, dyspnea, fever, vomiting, headache, throat pain, chest pain, abdominal pain, lightheadedness. Took 2 Benadryl and Tylenol without relief. Pt has been taking lisinopril for few years and denies any previous personal or known family history of tongue/lip/face swelling. On evaluation, pt reports the swelling has slightly improved since arriving to the ED and receiving medication- benadryl, pepcid, decadron, IV fluids, FFP. Accompanied by daughter in room. Allergies Allergy/AdvReac Type Severity Reaction Status Date / Time codeine Allergy Severe RASH Verified 05/05/21 18:38 tramadol Allergy Severe RASH Verified 01/06/18 22:14 Home Medications Medication Instructions Recorded Confirmed Type alprazolam 1 mg tablet 1 mg PO HS 05/05/21 05/05/21 History aspirin 81 mg tablet,delayed 81 mg PO QAM 05/05/21 05/05/21 History release levothyroxine 25 mcg tablet 25 mcg PO DAILY 05/05/21 05/05/21 History lisinopril 10 mg tablet 10 mg PO QPM 05/05/21 05/05/21 History metformin 1,000 mg tablet 1,000 mg PO AMPM 05/05/21 05/05/21 History pantoprazole 40 mg tablet,delayed 40 mg PO HS 05/05/21 05/05/21 History release Past Med/Surg History Social History Smoking Status: Current every day smoker Tobacco Type: Cigarettes Preferred Language: Romanian Feels Safe at Home: Yes Review of Systems Review of Systems: Per HPI Physical Exam Physical Exam: General: morbidly obese, laying in bed, no acute distress HEENT: muffled voice, significant uniform tongue swelling obstructing visualization of pharynx, no lymphadenopathy, moist mucous membranes, no JVD CV: RRR, normal S1 and S2, no murmurs noted Resp: CTAB, unlabored respirations without accessory muscle use Abdomen: soft, nontender, nondistended, no hepatosplenomegaly Skin: warm and dry without rashes, no urticaria Neuro: AOx3, no gross focal motor deficits, no sensory deficits, DTRs +2 Extremities: distal pulses 2+ b/l, cap refill <2s b/l, no peripheral edema Results & Data Results & Data ([facility]) Vital Signs (Past 12 Hours) Vital Signs Temp Pulse Pulse Resp BP BP Pulse Ox 05/05/21 18:30 91 H 14 178/115 H 98 05/05/21 18:15 90 20 163/108 H 97 05/05/21 18:00 96 H 19 164/91 H 98 05/05/21 17:50 101 H 21 98 05/05/21 17:45 98 H 21 145/97 H 97 05/05/21 17:39 102 H 16 156/107 H 98 05/05/21 16:57 35.9 C L 100 H 18 170/124 H 97 Laboratory Results Laboratory Results WBC 14.43 K/uL (4.8-10.8) H 05/05/21 17:17 RBC 5.12 M/uL (4.7-6.1) 05/05/21 17:17 Hgb 16.0 g/dL (14.0-18.0) 05/05/21 17:17 Hct 47.8 % (42-52) 05/05/21 17:17 MCV 93.4 fL (80-100) 05/05/21 17:17 MCH 31.3 pg (25-34) 05/05/21 17:17 MCHC 33.5 g/dL (32-36) 05/05/21 17:17 RDW Std Deviation 45.8 fL (36.4-46.3) 05/05/21 17:17 RDW Coeff of Octavia 13.3 % (11.5-14.5) 05/05/21 17:17 Plt Count 311 K/uL (130-400) 05/05/21 17:17 MPV 11.1 fL (7.4-10.4) H 05/05/21 17:17 Immature Gran % (Auto) 0.3 % 05/05/21 17:17 Neut % (Auto) 69.7 % 05/05/21 17:17 Lymph % (Auto) 18.6 % 05/05/21 17:17 Grundy % (Auto) 7.4 % 05/05/21 17:17 Eos % (Auto) 3.7 % 05/05/21 17:17 Baso % (Auto) 0.3 % 05/05/21 17:17 Neut # (Auto) 10.04 K/uL (1.4-6.5) H 05/05/21 17:17 Lymph # (Auto) 2.68 K/uL (1.2-3.4) 05/05/21 17:17 Grundy # (Auto) 1.07 K/uL (0.11-0.59) H 05/05/21 17:17 Eos # (Auto) 0.54 K/uL (0-0.5) H 05/05/21 17:17 Baso # (Auto) 0.05 K/uL (0-0.2) 05/05/21 17:17 Immature Gran # (Auto) 0.05 K/uL (0.00-0.02) H 05/05/21 17:17 Sodium 135 mmol/L (136-145) L 05/05/21 17:17 Potassium 4.1 mmol/L (3.5-5.1) 05/05/21 17:17 Chloride 102 mmol/L (98-107) 05/05/21 17:17 Carbon Dioxide 29 mmol/L (21-32) 05/05/21 17:17 Anion Gap 4.0 (3-11) 05/05/21 17:17 BUN 10 mg/dl (7-18) 05/05/21 17:17 Creatinine 0.84 mg/dl (0.6-1.4) 05/05/21 17:17 Est Cr Clr Drug Dosing 142.2 ml/min 05/05/21 17:17 Est GFR ( Amer) 122.6 ml/min 05/05/21 17:17 Est GFR (Non-Af Amer) 105.7 ml/min 05/05/21 17:17 BUN/Creatinine Ratio 11.3 (10-20) 05/05/21 17:17 Glucose 199 mg/dl (70-99) H 05/05/21 17:17 Calcium 9.8 mg/dl (8.5-10.1) 05/05/21 17:17 COVID-19 Eval Order Covid19 at [facility] 05/05/21 17:42 Impressions Chest X-Ray 05/05/21 17:57 XR chest 1V portable CLINICAL HISTORY: Pre-anesthesia comment swelling TECHNIQUE: Single frontal radiograph of the chest was obtained. Comparison: None available at the time of this dictation. FINDINGS: No lines and tubes are seen. Cardiomegaly is noted. The lungs are clear. No evidence of pleural effusion or pneumothorax. IMPRESSION: No acute chest disease. ACT 112: Negative or not required by law. Electronically signed by: Lonnie Kirk M.D. 05/05/2021 6:16 PM Code Status & VTE Plan VTE Prophylaxis Plan VTE Prophylaxis will be ordered: Yes Supervising Physician Co-Signing Physician Notes Resident Physician Supervision Note: I interviewed and examined the patient. Discussed with Dr. Snider and agree with findings and plan as documented in the note. Any exceptions or clarifications are listed here: None This pt developed tongue swelling that seems consistent with angioedema, after having mydriatic eye drops placed, in the ER multidisiplinary consults including ENT and Anesthesia and opted for medical treatment with observation in ICU but if declines will have intubation, ordered FFP x 2 units plus steroids, diphenhydramine and famotidine in the ER the pt was sleepy but able to speak in a muffled voice, no stidor, able to handle secretions; care plan to icu continue steroids and histamine blockers, consider Tranexamic acid if clinical deterioration Documented By: Manfred Burgess MD Resident Activity Tracking Resident Involvement: Resident Care Provided Care Provided: Adult Hospital Medicine
--- NOTE | 2021-05-05 19:52 | Billing Data ---
Date of Service May 05, 2021 Coding Level of Care Code 32608 Initial Inpt Care Lvl 3
[2021-05-05] MEDS ORDERED: hydrALAZINE HCL 20 MG/ML VIAL IV PRN (20:10)
[2021-05-05] MEDS ORDERED: ICU PROTOCOL FOR HYPERGLYCEMIA PRN (20:10)
--- NOTE | 2021-05-05 20:35 | Critical Care Consultation ---
Date of Consultation May 05, 2021 Assessment & Plan (1) Admitted to intensive care unit: Reason Critically Ill: 46-year-old male with angioedema in the setting of lisinopril use requiring close monitoring for airway protection in the event of worsening angioedema. NEURO - * CAM ICU: NEGATIVE * Anxiety: * Hold on p.o. medications currently. * May restart when p.o. status improved. CARDIAC/VASCULAR - * Hypertension: * P.o. meds currently held. * Agree with IV dosing as needed no overnight. * Monitor on telemetry. RESPIRATORY - * Angioedema: * Difficult airway in the setting of profound angioedema. * To receive FFP. * Previously received steroids, famotidine, and Benadryl. * Monitor closely for need for airway intervention. GI/NUTRITION - * N.p.o. overnight RENAL/LYTES - * No significant electrolyte derangements - * No concerns at this time. ENDO - * DMII * BSGs per unit protocol. ISS --> gtt per unit policy. HEME - * To receive FFP x2 ID - * No concerns for infectious contribution at this time. LINES/IV ACCESS - * PIVs x2 DVT PROPHYLAXIS - * Heparin sq. * SCDs I have personally spent 32 minutes of critical care time in the direct management of this patient. This is a life/limb threatening event. This includes time spent evaluating patient, direct bedside care, chart review, placing orders, interpretation of diagnostic studies, discussion with consultants, patient, and family members, as well as other required patient management activities. This time is exclusive of all separately billable procedures, and teaching time and separate from and in addition to any other critical care service time. Thank you for allowing us to participate in the care of this patient. Please refer to my attending physician's documentation for any further recommendations. (2) Angioedema: (3) Airway compromise: (4) HTN (hypertension): (5) Diabetes: (6) Anxiety: History of Present Illness Attending Physician: Manfred Burgess MD History of Present Illness Patient is a 46-year-old male with significant past medical history of kidney stones, hypertension, anxiety, and GERD who presented to the emergency department with abrupt onset of angioedema. 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 He reports difficulty with swallowing breathing at that time. Patient was assessed by anesthesia as well as ENT in the emergency department. He received steroids, Benadryl, and famotidine. Orders placed for FFP. Patient to be monitored in the ICU in the event of worsening symptoms and need for airway management. Upon evaluation in the emergency department, the patient is awake, alert, and oriented. He has muffled voice, but reports that he is feeling better. He is tolerating his secretions. He denies any difficulty with breathing. Patient reports that he has taken lisinopril for the last 5 years. No family history of angioedema. Allergies Allergy/AdvReac Type Severity Reaction Status Date / Time codeine Allergy Severe RASH Verified 05/05/21 18:38 tramadol Allergy Severe RASH Verified 01/06/18 22:14 Home Medications Medication Instructions Recorded Confirmed Type alprazolam 1 mg tablet 1 mg PO HS 05/05/21 05/05/21 History aspirin 81 mg tablet,delayed 81 mg PO QAM 05/05/21 05/05/21 History release levothyroxine 25 mcg tablet 25 mcg PO DAILY 05/05/21 05/05/21 History metformin 1,000 mg tablet 1,000 mg PO AMPM 05/05/21 05/05/21 History pantoprazole 40 mg tablet,delayed 40 mg PO HS 05/05/21 05/05/21 History release dexamethasone 4 mg tablet 4 mg PO DAILY 3 Days #3 tab 05/06/21 Rx Patient History Social History Smoking Status: Current every day smoker Tobacco Type: Cigarettes Cigarettes Per Day: 30; Hx Alcohol Use: Yes Hx Substance Use: No Preferred Language: Turkish Communication Ability: Effective Front Counter Clerk Required: No Beliefs That Will Affect Care: None Current Living Situation: Significant Other Current Living Situation Comment: Girlfriend and 3 children Feels Safe at Home: Yes Assistive Devices: Oxygen - at Night Review of Systems Review of Systems: A complete 10 point review of systems was reviewed with the patient with pertinent positives and negatives as per history of present illness. All else were negative. Physical Exam Physical Exam: VITAL SIGNS - Vital signs and nursing notes were reviewed. GENERAL - 46-year-old male appearing his stated age. Muffled voice with noted tongue swelling. Communicates well with provider and answers questions appropriately. SKIN - No urticaria or other facial edema noted. HEAD - Normocephalic, Atraumatic. EYES - PERRL with EOMI bilaterally. Without periorbital edema. Without subconjunctival hemorrhage. Palpebral conjunctiva pink and moist with no injection. EARS - No deformities of external structures noted on gross examination bilaterally. NOSE - Midline and without cyanosis. No epistaxis or clear watery discharge noted. Septum midline without deviation. MOUTH/OROPHARYNX - Without perioral cyanosis. Markedly edematous tongue and sublingual edema. Difficulty viewing palate secondary to swelling. Still handling his own secretions. No palpable sublingual edema. NECK - Supple to palpation. LUNGS - Chest wall symmetric without accessory muscle use, intercostals retractions, or central cyanosis. Without stridor. No active wheezes. Normal vesicular breath sounds CTA B/L. No rales or rhonchi appreciated. CARDIAC - RRR with S1/S2. No murmur, rubs, or gallops appreciated. ABDOMEN - Abdominal contour obese without pulsations or visible masses. BS normoactive all four quadrants. No rebound tenderness or guarding noted. No tenderness, palpable masses, hepatosplenomegaly, or ascites noted. EXTREMITIES - No gross deformities noted of the extremities. +3/5 radial and dorsalis pedis pulses palpated throughout. +5/5 strength noted in UE/LE bilaterally. NEUROLOGIC - Cranial nerves II through XII grossly intact. Sensory intact to light touch throughout. PSYCH - A&Ox3 and cooperates fully with examiner. Pt is very pleasant and interacts well with examiner. Results & Data Results & Data ([facility]) Vital Signs (Past 12 Hours) Vital Signs Temp Pulse Pulse Resp BP BP Pulse Ox 05/05/21 20:31 36.7 C 84 21 166/117 H 93 05/05/21 20:24 86 14 166/117 H 94 05/05/21 19:45 86 15 170/122 H 98 05/05/21 19:30 82 21 182/118 H 96 05/05/21 19:15 84 12 184/108 H 95 05/05/21 19:00 83 19 177/110 H 96 05/05/21 18:45 93 H 22 173/115 H 96 05/05/21 18:30 91 H 14 178/115 H 98 05/05/21 18:15 90 20 163/108 H 97 05/05/21 18:00 96 H 19 164/91 H 98 05/05/21 17:50 101 H 21 98 05/05/21 17:45 98 H 21 145/97 H 97 05/05/21 17:39 102 H 16 156/107 H 98 05/05/21 16:57 35.9 C L 100 H 18 170/124 H 97 Coding Level of Care Code Critical Care 1st 30-74 mins Diagnoses Admitted to intensive care unit Z78.9 Angioedema T78.3XXA Airway compromise J98.8 HTN (hypertension) I10 Diabetes E11.9 Anxiety F41.9 Time Spent (min) 32
[2021-05-05] MEDS ORDERED: dexAMETHasone 6 MG in SYRINGE 0 ML IV SCH (21:00)
[2021-05-05] MEDS: PANTOprazole 40 MG in SYRINGE 0 ML IV SCH (21:39)
[2021-05-05] MEDS: HEPARIN SOD 5,000 UNIT/0.5 ML VIAL SQ SCH (21:39)
[2021-05-05] MEDS ORDERED: FAMOTIDINE 20 MG in SYRINGE 3 ML IV ONE (23:00)
[2021-05-05] MEDS ORDERED: FAMOTIDINE 20MG/5ML IV PUSH IV SCH (23:00)
[2021-05-05] MEDS ORDERED: GLUCOSE 10 TABS/TUBE PO PRN (23:13)
[2021-05-05] MEDS ORDERED: GLUCAGON FOR INJ 1 MG VIAL SQ PRN (23:13)
[2021-05-05] MEDS ORDERED: CARBOHYDRATES FOR HYPOGLYCEMIA PO PRN (23:13)
[2021-05-05] MEDS ORDERED: GLUCOSE 40% GEL 15 GM TUBE PO PRN (23:13)
[2021-05-05] MEDS ORDERED: PHARMACY GLYCEMIC MGMT CONSULT PRN (23:13)
[2021-05-05] MEDS ORDERED: DEXTROSE 50% 50 ML SYRINGE IV PRN (23:13)
[2021-05-05] MEDS ORDERED: INSULIN GLARGINE SOLOSTAR 100 UNITS/ML 3 ML PEN SC ONE (23:30)
[2021-05-06] MEDS ORDERED: INSULIN ASPART 100 UNITS/ML VIAL SC ONE (04:00)
[2021-05-06] MEDS: INSULIN ASPART 100 UNITS/ML VIAL SC SCH ×2 (04:05→08:17)
[2021-05-06 05:15] LABS: Basophils # (auto) 0.01 K/uL (0-0.2); Basophils % (auto) 0.1 %; Eosinophils # (auto) 0.01 K/uL (0-0.5); Eosinophils % (auto) 0.1 %; Hematocrit (blood only) 45.2 % (42-52); Hemoglobin 15.5 g/dL (14.0-18.0); Immature Granulocytes # (auto) 0.09 K/uL (0.00-0.02); Immature Granulocytes % (auto) 0.6 %; Lymphocytes # (auto) 1.26 K/uL (1.2-3.4); Lymphocytes % (auto) 9.1 %; Mean Corpuscular Hemoglobin 31.9 pg (25-34); Mean Corpuscular Hgb Conc 34.3 g/dL (32-36); Mean Platelet Volume 10.9 fL (7.4-10.4); Monocytes # (auto) 0.19 K/uL (0.11-0.59); Monocytes % (auto) 1.4 %; Neutrophils # (auto) 12.32 K/uL (1.4-6.5); Neutrophils % (auto) 88.7 %; Platelet Count 310 K/uL (130-400); RDW Coefficient of Variation 13.1 % (11.5-14.5); RDW Standard Deviation 44.4 fL (36.4-46.3); Red Blood Count 4.86 M/uL (4.7-6.1); White Blood Count 13.88 K/uL (4.8-10.8)
[2021-05-06 05:47] LABS: BUN Creatinine Ratio 12.2 (10-20); Calcium 9.9 mg/dl (8.5-10.1); Creatinine Clr Calc Pharmacy 159.5 ml/min; Est GFR (African American) 127.7 ml/min; Est GFR (Non-African American) 110.2 ml/min; Magnesium 2.1 mg/dl (1.8-2.4); Phosphorus 2.9 mg/dl (2.5-4.9); Potassium 4.2 mmol/L (3.5-5.1)
[2021-05-06] MEDS: HEPARIN SOD 5,000 UNIT/0.5 ML VIAL SQ SCH (06:11)
[2021-05-06 06:47] LABS: Estimated Average Glucose 206 mg/dl; Hemoglobin A1C 8.8 % (4.5-5.6)
--- NOTE | 2021-05-06 07:29 | Critical Care Progress Note ---
Date of Service May 06, 2021 Assessment & Plan (1) Admitted to intensive care unit: Plan: Reason Critically Ill: 46-year-old male with angioedema in the setting of lisinopril use and recent mydriatic eye drop use, requiring close monitoring for airway protection in the event of worsening angioedema. He has been stable on room air overnight without respiratory distress, and angioedema is improving. NEURO - * CAM ICU: NEGATIVE * Anxiety: * Can resume home meds, per hospitalist CARDIAC/VASCULAR - * Hypertension: * Lisinopril stopped and should be discontinued on discharge * Further management per PCP RESPIRATORY - * Angioedema, resolving, patient stable on room air: * Improved s/p steroids, famotidine, benadryl and FFP x2 * Discontinue lisinopril as stated above * C1 esterase inhibitor - pending * C4 - pending * Note: patient is current smoker with >20 pack year history - would benefit from outpatient sleep study +/- PFTs GI/NUTRITION - * Resume diet this morning * GERD: change Protonix to home PO dose RENAL/LYTES - * No significant electrolyte derangements - * No concerns at this time. ENDO - * DMII * A1c 8.8 during this hospitalization * Continue home Metformin on discharge * Further management per PCP HEME - * H/H stable ID - * No concerns for infectious contribution at this time. LINES/IV ACCESS - * PIVs x2 DVT PROPHYLAXIS - * Heparin SQ * SCDs DISPO - Patient stable for downgrade out of ICU, and likely is stable for discharge as well (per hospitalist). Thank you for allowing us to participate in the care of this patient. Please refer to Dr. Gee's documentation for any further recommendations. (2) Angioedema: (3) Airway compromise: (4) HTN (hypertension): (5) Diabetes: (6) Anxiety: Admission and Anticipated Discharge Date Admission Date: May 05, 2021 Supervising Physician Co-Signing Physician Notes Dr Garcia was the resident-physician during care of patient. I separately evaluated patient for petit portions of the history and the exam. I was present during the critical portion of medical decision making, and I discussed the case with the resident. I generally agree with the findings and plan except for any additions/exceptions noted. Seen and examined at bedside. No acute distress, noted with symptoms overnight Patient was admitted yesterday for angioedema likely related to lisinopril He got 2 units of FFP. Physical exam patient is doing very well. He has no difficulty swallowing. No shortness of breath Tongue has retracted back to normal size Lungs are clear to auscultation. S1-S2 positive Morbidly obese, positive bowel sounds, no edema Plan: Patient should refrain from using any RUBEN inhibitor's Patient is supposed to follow-up with primary care doctor tomorrow can change his antibiotics I will DC the dexamethasone Patient is an active smoker. Importance of quitting explained to the patient He is also high probability of having [place] Recommend outpatient polysomnography Patient is hemodynamically stable to be out of the ICU This time is exclusive of all separately billable procedures, and teaching time and separate from and in addition to any other critical care service time. Subjective No acute events overnight. Patient remained on room air without signs of respiratory distress or muffled voice. This morning reports that tongue swelling has significantly improved. Denies lightheadedness/dizziness, syncope/near- syncope, face/lips swelling, SOB, wheezing. Feels ready to be discharged. Review of Systems Review of Systems: All systems reviewed & are unremarkable except as noted in HPI & below Physical Exam Physical Exam: General: A&Ox3. NAD. Cooperative. HEENT: Atraumatic, normocephalic. Tongue does not appear edematous. Posterior oropharynx is clear without exudates or obstruction. Pulm: CTAB A&P. -wheezes, -rales, -rhonchi. Symmetrical chest rise. No increase work of breathing. No respiratory distress. Cardiac: RRR, -mrg. Radial pulses intact and symmetrical. No LE edema. Abdominal: soft, non-tender, non-distended, BS x 4 Skin: warm, dry, no rash Results & Data Results & Data ([facility]) Vital Signs (Past 12 Hours) Vital Signs Temp Pulse Pulse Resp BP BP Pulse Ox 05/06/21 06:00 94 H 19 136/91 92 05/06/21 05:00 36.7 C 82 16 123/83 94 05/06/21 04:00 91 H 13 95 05/06/21 03:00 86 19 95 05/06/21 02:07 36.7 C 95 H 19 137/93 97 05/06/21 01:07 36.7 C 73 22 149/105 H 96 05/06/21 00:48 36.7 C 73 22 149/105 H 96 05/06/21 00:46 36.7 C 84 21 117/93 93 05/06/21 00:07 36.7 C 86 18 133/97 96 05/05/21 23:37 36.7 C 87 18 133/97 95 05/05/21 23:22 36.7 C 87 20 150/100 H 96 05/05/21 23:04 36.7 C 98 H 19 165/108 H 96 05/05/21 22:53 36.7 C 87 20 133/97 96 05/05/21 22:32 36.7 C 89 22 165/109 H 94 05/05/21 22:23 36.7 C 84 21 155/96 H 94 05/05/21 21:32 36.7 C 86 22 169/101 H 95 05/05/21 21:02 36.7 C 87 22 161/109 H 96 05/05/21 21:00 85 13 143/108 H 96 05/05/21 20:47 36.7 C 85 23 161/106 H 97 05/05/21 20:31 36.7 C 84 21 166/117 H 93 05/05/21 20:24 86 14 166/117 H 94 05/05/21 20:10 82 05/05/21 20:07 97 H 23 166/117 H 94 05/05/21 19:45 86 15 170/122 H 98 05/05/21 19:30 82 21 182/118 H 96 Resident Activity Tracking Resident Involvement: Resident Care Provided Care Provided: Adult [facility] Medicine
[2021-05-06] MEDS ORDERED: INSULIN GLARGINE SOLOSTAR 100 UNITS/ML 3 ML PEN SC ONE (07:30)
[2021-05-06] MEDS ORDERED: FLUARIX QUADRIVALENT 0.5 ML SYR IM ONE (08:00)
[2021-05-06] MEDS: PANTOprazole 40 MG in SYRINGE 0 ML IV SCH (08:18)
--- NOTE | 2021-05-06 10:13 | Discharge Summary ---
Date of Service date of admission - May 05, 2021 date of discharge - May 06, 2021 Admission HPI Per Admitting Provider 46 yo M with PMH HTN, DM2, GERD admitted for tongue swelling. Pt was at ophthalmology appointment earlier in afternoon and received dilation eye drops with Paremyd- has never had eye drops before. Approximately 20 minutes after eye drops administered he began to experience abrupt tongue swelling. Tongue was swollen mostly on right side which then evolved over past few hours to generalized swelling. Swelling does not feel painful and still able to converse appropriately. Did not have rashes, dyspnea, fever, vomiting, headache, throat pain, chest pain, abdominal pain, lightheadedness. Took 2 Benadryl and Tylenol without relief. Pt has been taking lisinopril for few years and denies any previous personal or known family history of tongue/lip/face swelling. On evaluation, pt reports the swelling has slightly improved since arriving to the ED and receiving medication- benadryl, pepcid, decadron, IV fluids, FFP. Accompanied by daughter in room. Principal Diagnosis Angioedema - lisinopril vs Paremyd Eye drops Discharge Exam gen - obese, NAD, no stridor or respiratory distress HEENT - no pharyngeal swelling, no tongue swelling, no stridor neck - no anterior swelling heart - RRR, s1 s2, no murmur lungs - CTA b/l abd - soft NT ND BS+ ext - no edema, pulses 2+ b/l skin - no urticaria Discharge Data Allergies Allergy/AdvReac Type Severity Reaction Status Date / Time codeine Allergy Severe RASH Verified 05/05/21 18:38 hydroxyamphetamine Allergy Severe Swelling Verified 05/12/21 06:57 [From Paremyd] of Lip/Tongue/Throat lisinopril Allergy Severe Swelling Verified 05/12/21 06:56 of Lip/Tongue/Throat tramadol Allergy Severe RASH Verified 01/06/18 22:14 tropicamide [From Paremyd] Allergy Severe Swelling Verified 05/12/21 06:57 of Lip/Tongue/Throat Consultations Carding Supervisor Procedures Performed FFP x 2 units Ordered Studies Chest X-Ray 05/05/21 17:57 XR chest 1V portable CLINICAL HISTORY: Pre-anesthesia comment swelling TECHNIQUE: Single frontal radiograph of the chest was obtained. Comparison: None available at the time of this dictation. FINDINGS: No lines and tubes are seen. Cardiomegaly is noted. The lungs are clear. No evidence of pleural effusion or pneumothorax. IMPRESSION: No acute chest disease. ACT 112: Negative or not required by law. Electronically signed by: Lonnie Kirk M.D. 05/05/2021 6:16 PM Hospital Course (1) Angioedema: Uncertain if due to RUBEN inhibitor (lisinopril) vs Paremyd eye drops. RUBEN stopped upon admission. Received combination of IV benadryl, IV decadron, IV famotidine, and IV fluids. Administered FFP 2 units as precautionary measure. Following such - and due to concern of airway compromise - he was admitted to the ICU. Complement panel was dispatched to rule out hereditary angioedema. By the am of hospital day #2 he was stable with no stridor, tongue/lip/pharyngeal/laryngeal swelling/rash, and no dysphagia for liquids/solids. On the AM of hospital day #2 he nearly left the hospital AMA prior to receiving discharge instructions and discharge prescriptions. He was advised to - * STOP lisinopril * take a short course of dexamethasone * take OTC benadryl + zantac for 3 days * follow-up with [facility] for additional work-up (2) HTN (hypertension): HOLD lisinopril at discharge. He has f/u with his PCP in 24 hours post-discharge. He likely will need a substitute anti-hypertensive medication. (3) Diabetes: HbA1C 8.8%. Continue metformin 1gm BID. (4) GERD (gastroesophageal reflux disease): Cont PPI. H2 rikki for #1 for a short-course post-discharge. (5) Hypothyroidism: TSH 1.1. Cont synthroid 25mcg daily. (6) Morbid obesity with BMI of 40.0-44.9, adult: BMI 41.5. Total Time Total Time Spent Total Time Spent (In Minutes): 25 Discharge Plan Discharge Items Patient Disposition: Home - Self-Care Reason For Visit: ANGIOEDEMA Discharge Diagnosis: Angioedema (tongue swelling) -- due to lisinopril? due to Paremyd eye drops? Angioedema improved/resolved. Activity: Resume your previous activity Non-emergency contact: Primary Care Provider Call non-emergency contact if: you have any medication questions and your symptoms worsen Follow-up/Referrals: Scar Faustin, DO [Outside Practitioners] - 05/07/21 8:00 am (appointment already scheduled - please fax lab results from this hospitalization to his office in [place]) Mg Leroy MD [Physician] - (please obtain a referral from your family doctor to see allergy ) Diet: Carb Consistent or DM2 Addtl Attending Provider Instructions: Mr Ward, You were admitted to the hospital for angioedema (tongue swelling). You were treated with IV steroids, benadryl, and other medications. The tongue swelling is nearly resolved. The angioedema could have been the Paremyd eye drops, the lisinopril, or some other cause. Please STOP the lisinopril. Recommendations - 1. take dexamethasone steroid 4mg once daily with food for 3 days. Take your first dose this afternoon. KNOW THAT THE STEROID WILL INCREASE YOUR BLOOD SUGARS. YOU WILL NEED TO WATCH YOUR DIET VERY CAREFULLY OVER THE NEXT 4-5 DAYS. 2. take utob-dsd-qhyakeg zantac 150mg twice daily for 5 days. 3. take jjpi-xbc-gzkbnpj benadryl 25mg twice daily for 2 days. While taking benadryl do not drive or operate machinery as it can cause you to be sleepy. Your blood sugars and blood pressures are high - please speak to your family doctor tomorrow about additional medications for these 2 conditions. I would recommend a referral to an manager technology to try and determine the cause of this event. I have included his name, office address and phone number. Please ask your family doctor for a referral. Return to any hospital if - * you experience recurrent swelling of the tongue, facial swelling, or throat swelling * you are having difficulty breathing, talking or swallowing * any other concerns Pending Studies at Discharge: Yes Studies:: labs to exclude hereditary conditions that can cause angioedema Stand-Alone Forms: My [facility], Smoking Cessation Medications and DC Order Prescriptions: Continued metformin 1,000 mg tablet 1,000 mg PO AMPM RF: 0 aspirin 81 mg Tablet,Delayed Release (Dr/Ec) 81 mg PO QAM RF: 0 pantoprazole 40 mg tablet,delayed release (DR/EC) 40 mg PO HS RF: 0 levothyroxine 25 mcg tablet 25 mcg PO DAILY RF: 0 alprazolam 1 mg tablet 1 mg PO HS RF: 0 Discontinued lisinopril 10 mg tablet 10 mg PO QPM RF: 0 Discharge Orders: Discharge Order (Routine); Ordered 05/06/21 Ordered By: Hakeem Holland/Other Patient Handouts: ED Angioedema Admission Data Admit Date/Time: 05/05/21 18:31 Attending Provider: Hakeem Jameson Admit Provider: Manfred Burgess Primary Care Provider: PCP,NO Other Providers: Manfred Burgess ; Tab Gee Other Interventions: Discharge Summary Assessment (RN) Last Done: 05/06/21 09:45 Coding Level of Care Code D/C DAY MANAGEMENT <30 MINS Diagnoses Angioedema T78.3XXA HTN (hypertension) I10 Diabetes E11.9 GERD (gastroesophageal reflux disease) K21.9 Hypothyroidism E03.9 Morbid obesity with BMI of 40.0-44.9, adult E66.01; Z68.41
--- NOTE | 2021-05-06 13:02 | Billing Data ---
Date of Service May 06, 2021 Coding Level of Care Code 82939 Subseq Hosp Care Lvl 2
[2021-05-06] MEDS ORDERED: PANTOprazole 40 MG TAB PO SCH (21:00)
[2021-05-09 08:21] LABS: C1 Esterase Inhib Functional >100 % (>=68); C1 Esterase Inhibitor 32 mg/dL (21-39)
== END 2021-05-06 10:38 | disposition home or self-care (01) ==
LOC: ED 16:50 → 1E 18:31 → SUATTDRO 18:31 → INTOOBSV 18:31 → 1E 19:51

== ENCOUNTER 2022-04-30 14:12 | Observation (INO) ==
[2022-04-30] MEDS ORDERED: FAMOTIDINE 20MG IV PUSH 20 MG/5 ML SYR IV STA (14:28)
[2022-04-30] MEDS ORDERED: diphenhydrAMINE 50 MG/ML VIAL IV STA (14:28)
[2022-04-30] MEDS ORDERED: SODIUM CHLORIDE 0.9% 250 ML IV PRN (14:28)
[2022-04-30] MEDS ORDERED: EPINEPHrine ADULT AUTO-INJECT 0.3 MG SYR IM STA (14:28)
[2022-04-30] MEDS ORDERED: methylPREDNISolone 125 MG/2 ML VIAL IV STA (14:28)
--- NOTE | 2022-04-30 14:33 | Emergency Department Note ---
Impression & Plan Angio-edema, Tongue swelling, Leukocytosis, Trouble swallowing ED Provider Note NAME: CINDY POWERS AGE: 47 SEX: M : 1975 ARRIVES VIA: Walk-In INFORMANT: [Patient] ED PROVIDER(S): [Joselito Chowdhury MD] CHIEF COMPLAINT: Tongue swelling HISTORY OF PRESENT ILLNESS: The patient is a 47-year-old male who presents to the ER with tongue swelling that began this morning and has worsened throughout the day. He can barely speak but he is breathing fine. He had angioedema once before about a year ago thought secondary to lisinopril or potentially eyedrops. The patient has not had any issues until this morning. The patient is currently on amoxicillin for a bad tooth. He has taken amoxicillin before though without difficulty, he has no penicillin allergy. There is no cough or congestion. He is not currently short of breath. He does not really have pain. He has not taken anything at home to try to relieve symptoms. REVIEW OF SYSTEMS: See HPI for pertinent positives and negatives. A total of ten systems were reviewed and were otherwise negative. PMHx/PSHx: See Below SOCIAL HISTORY: See Below. PHYSICAL EXAM: GENERAL: Patient is in no acute distress. HEENT: No acute trauma, normocephalic atraumatic, mucous membranes moist. The patient's tongue is not markedly edematous to the point where even a tongue depressor cannot depress things enough to see the posterior pharynx. There is some swelling to the underside of the tongue as well-it appears to be edema. The patient can barely speak secondary to the size of his tongue. NECK: No stridor, no adenopathy, no meningismus, trachea is midline. LUNGS: Clear to auscultation bilaterally, no wheeze, no rhonchi, breath sounds equal. HEART: Without murmurs gallops or rubs, regular rate and rhythm. ABDOMEN: Soft, nontender, bowel sounds positive, no peritonitis. EXTREMITIES: No cyanosis or edema, full range of motion of all the joints without pain or difficulty, no signs for acute trauma. NEUROLOGIC: Oriented x 3, no acute motor or sensory deficits, no focal weakness. SKIN: No rash, no jaundice, no diaphoresis. DIFFERENTIAL DIAGNOSIS: Angioedema, anaphylaxis, dental abscess, Ludwigs angina, facial cellulitis, uvular edema, epiglottitis, airway compromise, foodborne or environmental allergy, medication allergy, among others EMERGENCY DEPARTMENT COURSE/PROCEDURES: Critical Care Note: I have personally spent 39 minutes of critical care time in the direct management of this patient. This includes bedside care, interpretation of diagnostic studies, and testing, discussion with consultants, patient, and family members, and other required patient management activities. This 39 minutes is in excess of all separately billable procedures. MEDICAL DECISION MAKING: There is a mild leukocytosis, this certainly could be consistent with infection or just the stress of the situation. There is a normal hemoglobin and platelet count. Sodium somewhat low at 132. Glucose was high at over 300. No renal failure. No concerning liver enzyme elevation. COVID test returned negative. Soft tissue neck CT shows edema, no abscess. On exam, there was no respiratory distress. The patient did have a hard time speaking and swallowing because of the size of his tongue. The patient was aggressively managed given his presentation. I did speak with ENT as well as anesthesia. Anesthesia did their evaluation at bedside did not feel the need for emergent intubation. The patient received IM epinephrine, IV Solu-Medrol, IV Pepcid, IV Benadryl, IV clindamycin. He received IV labetalol for his higher blood pressure. He was given IV insulin for his high sugar. The patient does feel as if he is improving. He thinks his tongue is less swollen although on exam, I believe the tongue swelling appears unchanged. The patient is not hypoxic, he is not having any difficulty with his airway currently. He is being hospitalized in the intensive care unit. I did speak with the ICU physician, the patient was accepted to their floor. The on-call hospitalist has been consulted. Case management has been involved. In short, at this point, the reason for this angioedema/tongue swelling is unclear. Past Med/Surg History Medical History Anxiety Hyperglycemia Hypertension Tobacco abuse counseling Tongue swelling Social History Smoking Status: Current every day smoker Tobacco Type: Cigarettes Cigarettes Per Day: 30; Hx Alcohol Use: Yes Hx Substance Use: No Preferred Language: Syriac Communication Ability: Effective Obstetrics Nurse Required: No Beliefs That Will Affect Care: None Current Living Situation: Significant Other Current Living Situation Comment: Girlfriend and 3 children Feels Safe at Home: Yes Assistive Devices: Oxygen - at Night Allergies Allergies Allergy/AdvReac Type Severity Reaction Status Date / Time codeine Allergy Severe RASH Verified 05/05/21 18:38 hydroxyamphetamine Allergy Severe Swelling Verified 05/12/21 06:57 [From Paremyd] of Lip/Tongue/Throat lisinopril Allergy Severe Swelling Verified 05/12/21 06:56 of Lip/Tongue/Throat tramadol Allergy Severe RASH Verified 01/06/18 22:14 tropicamide [From Paremyd] Allergy Severe Swelling Verified 05/12/21 06:57 of Lip/Tongue/Throat Home Meds Home Medications Medication Instructions Recorded Confirmed alprazolam 1 mg tablet 1 mg PO HS 05/05/21 05/05/21 aspirin 81 mg tablet,delayed 81 mg PO QAM 05/05/21 05/05/21 release levothyroxine 25 mcg tablet 25 mcg PO DAILY 05/05/21 05/05/21 metformin 1,000 mg tablet 1,000 mg PO AMPM 05/05/21 05/05/21 pantoprazole 40 mg tablet,delayed 40 mg PO HS 05/05/21 05/05/21 release Results & Data (ED) Vital Signs Vital Signs - 24 hr 04/30/22 14:15 04/30/22 14:24 04/30/22 14:48 Temperature 36.6 C Temperature Source Temporal Artery Scan Pulse Rate 90 Pulse Rate [Apical] 90 Pulse Rate from SpO2 Sensor Pulse Rhythm [Apical] Regular Pulse Strength [Apical] Respiratory Rate 20 22 Respiratory Effort / Characteristics Non-Labored Short of Breath Respiratory Depth Normal Normal Respiratory Pattern Regular Blood Pressure 206/122 H Blood Pressure [Left Arm] 182/119 H Blood Pressure Mean 150 Blood Pressure Mean [Left Arm] 140 Blood Pressure Position [Left Arm] Pulse Oximetry 94 96 95 Oxygen Delivery Method Room Air Room Air Room Air Oxygen Flow Rate 0 Sepsis Recent Fever Within 48 Hours No Sepsis New/Unexplained Change in Mental Status N/A Sepsis Action Taken by Nursing No Action Required 04/30/22 14:36 04/30/22 15:00 04/30/22 15:00 Temperature Temperature Source Pulse Rate 90 88 Pulse Rate [Apical] Pulse Rate from SpO2 Sensor 90 89 Pulse Rhythm [Apical] Pulse Strength [Apical] Respiratory Rate 21 24 Respiratory Effort / Characteristics Respiratory Depth Respiratory Pattern Blood Pressure 192/105 H Blood Pressure [Left Arm] Blood Pressure Mean 134 Blood Pressure Mean [Left Arm] Blood Pressure Position [Left Arm] Pulse Oximetry 94 94 Oxygen Delivery Method Oxygen Flow Rate Sepsis Recent Fever Within 48 Hours Sepsis New/Unexplained Change in Mental Status Sepsis Action Taken by Nursing 04/30/22 15:57 04/30/22 15:30 04/30/22 15:30 Temperature Temperature Source Pulse Rate 80 Pulse Rate [Apical] 83 Pulse Rate from SpO2 Sensor 79 Pulse Rhythm [Apical] Pulse Strength [Apical] Respiratory Rate 19 24 Respiratory Effort / Characteristics Respiratory Depth Respiratory Pattern Blood Pressure 193/126 H Blood Pressure [Left Arm] 167/116 H Blood Pressure Mean 148 Blood Pressure Mean [Left Arm] 133 Blood Pressure Position [Left Arm] Pulse Oximetry 94 Oxygen Delivery Method Oxygen Flow Rate Sepsis Recent Fever Within 48 Hours Sepsis New/Unexplained Change in Mental Status Sepsis Action Taken by Nursing 04/30/22 15:59 04/30/22 15:59 04/30/22 16:00 Temperature Temperature Source Pulse Rate 83 Pulse Rate [Apical] Pulse Rate from SpO2 Sensor Pulse Rhythm [Apical] Pulse Strength [Apical] Respiratory Rate 18 Respiratory Effort / Characteristics Respiratory Depth Respiratory Pattern Blood Pressure 167/116 H 173/96 H Blood Pressure [Left Arm] Blood Pressure Mean 133 121 Blood Pressure Mean [Left Arm] Blood Pressure Position [Left Arm] Pulse Oximetry Oxygen Delivery Method Oxygen Flow Rate Sepsis Recent Fever Within 48 Hours Sepsis New/Unexplained Change in Mental Status Sepsis Action Taken by Nursing 04/30/22 16:00 04/30/22 16:23 04/30/22 16:22 Temperature Temperature Source Pulse Rate 78 90 Pulse Rate [Apical] 69 Pulse Rate from SpO2 Sensor 88 Pulse Rhythm [Apical] Regular Pulse Strength [Apical] Normal Respiratory Rate 24 16 19 Respiratory Effort / Characteristics Non-Labored Spontaneous Accessory Muscle Use Respiratory Depth Normal Respiratory Pattern Regular Blood Pressure Blood Pressure [Left Arm] 171/90 H Blood Pressure Mean Blood Pressure Mean [Left Arm] 117 Blood Pressure Position [Left Arm] Semi-fowlers Pulse Oximetry 96 96 96 Oxygen Delivery Method Room Air Oxygen Flow Rate Sepsis Recent Fever Within 48 Hours Sepsis New/Unexplained Change in Mental Status Sepsis Action Taken by Nursing 04/30/22 16:22 04/30/22 16:30 04/30/22 16:30 Temperature Temperature Source Pulse Rate 80 Pulse Rate [Apical] Pulse Rate from SpO2 Sensor 80 Pulse Rhythm [Apical] Pulse Strength [Apical] Respiratory Rate 17 Respiratory Effort / Characteristics Respiratory Depth Respiratory Pattern Blood Pressure 183/113 H 168/107 H Blood Pressure [Left Arm] Blood Pressure Mean 136 127 Blood Pressure Mean [Left Arm] Blood Pressure Position [Left Arm] Pulse Oximetry 94 Oxygen Delivery Method Oxygen Flow Rate Sepsis Recent Fever Within 48 Hours Sepsis New/Unexplained Change in Mental Status Sepsis Action Taken by Nursing 04/30/22 17:00 04/30/22 17:00 Temperature Temperature Source Pulse Rate 76 Pulse Rate [Apical] Pulse Rate from SpO2 Sensor 74 Pulse Rhythm [Apical] Pulse Strength [Apical] Respiratory Rate 18 Respiratory Effort / Characteristics Respiratory Depth Respiratory Pattern Blood Pressure 175/95 H Blood Pressure [Left Arm] Blood Pressure Mean 121 Blood Pressure Mean [Left Arm] Blood Pressure Position [Left Arm] Pulse Oximetry 92 Oxygen Delivery Method Oxygen Flow Rate Sepsis Recent Fever Within 48 Hours Sepsis New/Unexplained Change in Mental Status Sepsis Action Taken by Alf Medications Current Medication List: was personally reviewed by me Laboratory Data Attestation: I reviewed the patient's lab results. Result diagrams: 04/30/22 14:36 04/30/22 14:36 Lab Results 04/30/22 04/30/22 04/30/22 Range/Units 14:36 14:36 14:45 WBC 12.01 H (4.8-10.8) K/ul RBC 5.42 (4.63-6.08) M/uL Hgb 16.6 (14.0-18.0) g/dl Hct 48.2 (40.1-51.0) % MCV 88.9 (80.0-100.0) fL MCH 30.6 (25.0-34.0) pg MCHC 34.4 (32.0-36.0) g/dL RDW Std Deviation 41.8 (36.4-46.3) fL RDW Coeff of Octavia 12.8 (11.5-14.5) % Plt Count 266 (130-400) K/uL MPV 11.4 (9.4-12.4) fL Immature Gran % (Auto) 0.4 % Neut % (Auto) 68.7 % Lymph % (Auto) 21.4 % [place] % (Auto) 7.1 % Eos % (Auto) 1.8 % Baso % (Auto) 0.6 % Neut # (Auto) 8.25 H (1.4-6.5) K/uL Lymph # (Auto) 2.57 (1.2-3.4) K/uL [place] # (Auto) 0.85 H (0.24-0.82) K/uL Eos # (Auto) 0.22 (0-0.50) K/uL Baso # (Auto) 0.07 (0-0.2) K/uL Immature Gran # (Auto) 0.05 H (0.00-0.02) K/uL Sodium 132 L (136-145) mmol/L Potassium 4.1 (3.5-5.1) mmol/L Chloride 96 L (98-107) mmol/L Carbon Dioxide 28 (21-32) mmol/L Anion Gap 8 (3-11) BUN 11 (6-23) mg/dl Creatinine 0.88 (0.6-1.4) mg/dl Est Cr Clr Drug Dosing 139.9 ml/min Est GFR ( Amer) 119.4 ml/min Est GFR (Non-Af Amer) 103.0 ml/min BUN/Creatinine Ratio 12.5 (10-20) Glucose 362 H* (70-99(Fasting)) mg/dl POC Glucose (70-99) mg/dl Calcium 9.1 (8.5-10.1) mg/dl Total Bilirubin 0.5 (0.2-1.0) mg/dl AST 27 (13-39) U/L ALT 48 (7-52) U/L Alkaline Phosphatase 117 H (34-104) U/L Total Protein 7.3 (6.0-8.3) gm/dl Albumin 3.8 (3.4-5.0) gm/dl Globulin 3.5 (2.5-4.0) gm/dl Albumin/Globulin Ratio 1.1 (0.9-2) SARS-CoV-2, RNA, NAAT NEGATIVE (NEGATIVE) Blood Type Antibody Screen 04/30/22 04/30/22 Range/Units 14:54 16:40 WBC (4.8-10.8) K/ul RBC (4.63-6.08) M/uL Hgb (14.0-18.0) g/dl Hct (40.1-51.0) % MCV (80.0-100.0) fL MCH (25.0-34.0) pg MCHC (32.0-36.0) g/dL RDW Std Deviation (36.4-46.3) fL RDW Coeff of Octavia (11.5-14.5) % Plt Count (130-400) K/uL MPV (9.4-12.4) fL Immature Gran % (Auto) % Neut % (Auto) % Lymph % (Auto) % [place] % (Auto) % Eos % (Auto) % Baso % (Auto) % Neut # (Auto) (1.4-6.5) K/uL Lymph # (Auto) (1.2-3.4) K/uL [place] # (Auto) (0.24-0.82) K/uL Eos # (Auto) (0-0.50) K/uL Baso # (Auto) (0-0.2) K/uL Immature Gran # (Auto) (0.00-0.02) K/uL Sodium (136-145) mmol/L Potassium (3.5-5.1) mmol/L Chloride (98-107) mmol/L Carbon Dioxide (21-32) mmol/L Anion Gap (3-11) BUN (6-23) mg/dl Creatinine (0.6-1.4) mg/dl Est Cr Clr Drug Dosing ml/min Est GFR ( Amer) ml/min Est GFR (Non-Af Amer) ml/min BUN/Creatinine Ratio (10-20) Glucose (70-99(Fasting)) mg/dl POC Glucose 306 H* (70-99) mg/dl Calcium (8.5-10.1) mg/dl Total Bilirubin (0.2-1.0) mg/dl AST (13-39) U/L ALT (7-52) U/L Alkaline Phosphatase (34-104) U/L Total Protein (6.0-8.3) gm/dl Albumin (3.4-5.0) gm/dl Globulin (2.5-4.0) gm/dl Albumin/Globulin Ratio (0.9-2) SARS-CoV-2, RNA, NAAT (NEGATIVE) Blood Type A Positive Antibody Screen NEGATIVE Administered Medications Dexamethasone 6 mg/ Syringe 1.5 mls @ 1 mls/min IV Q8H NELLI Stop: 05/30/22 17:59 Last Admin: 04/30/22 19:33 Dose: 1 mls/min Documented By: TG Miscellaneous (Icu Protocol For Hyperglycemia) 1 each N/A QAM NELLI Stop: 05/02/22 17:29 Last Admin: 04/30/22 19:56 Dose: 1 each Documented By: TG Discontinued Medications Diphenhydramine HCl (Diphenhydramine 50 Mg/Ml Vial) 12.5 mg IV NOW STA Stop: 04/30/22 14:29 Last Admin: 04/30/22 14:41 Dose: 12.5 mg Documented By: AM Epinephrine HCl (Epinephrine Adult Auto-Inject 0.3 Mg Syr) 0.3 mg IM NOW STA Stop: 04/30/22 14:29 Last Admin: 04/30/22 14:41 Dose: 0.3 mg Documented By: AM Famotidine (Pepcid 20mg Iv Push) 20 mg in 5 mls @ 2.5 mls/min IV NOW STA Stop: 04/30/22 14:29 Last Admin: 04/30/22 14:42 Dose: 2.5 mls/min Documented By: AM Clindamycin Phosphate (Cleocin/D5w) 900 mg in 50 mls @ 100 mls/hr IV NOW ONE Stop: 04/30/22 15:27 Last Infusion: 04/30/22 16:19 Dose: 0 mls/hr Documented By: Admin: 04/30/22 15:21 Dose: 100 mls/hr Documented By: AM Insulin Human Regular (Novolin-R Insulin Per Unit Charge) 10 units IV NOW STA Stop: 04/30/22 15:48 Last Admin: 04/30/22 16:39 Dose: 10 units Documented By: AM Co-signed By: AUTUMN Ioversol (Optiray 350 100ml) 94 ml IV ONCE ONE Stop: 04/30/22 16:13 Last Admin: 04/30/22 16:12 Dose: 94 ml Documented By: BEAU Labetalol HCl (Labetalol Hcl Iv 5 Mg/Ml 20ml) 10 mg IV NOW STA Stop: 04/30/22 15:28 Last Admin: 04/30/22 15:56 Dose: 10 mg Documented By: AM Co-signed By: PARKER Methylprednisolone (Methylprednisolone 125 Mg/2 Ml Vial) 125 mg IV NOW STA Stop: 04/30/22 14:29 Last Admin: 04/30/22 14:42 Dose: 125 mg Documented By: AM Imaging Data Radiologist's Impression: Soft Tissue Neck CT 04/30/22 14:28 CT soft tissue neck w con HISTORY: Swollen tongue. Leg TECHNIQUE: Multiaxial CT images of the neck were performed following the intravenous administration of contrast. Sagittal and coronal reformations were performed at the workstation by the radiologist. COMPARISON STUDY: None. FINDINGS: The visualized brain parenchyma and orbits are unremarkable. The pterygopalatine fossa and parapharyngeal fat spaces are well-maintained. The tongue is mildly enlarged and edematous. There is also mild thickening of the uvula. This results in mild narrowing of the oropharynx. The epiglottis and prevertebral soft tissues are normal in thickness. No loculated fluid collections to suggest an abscess. The thyroid gland enhances normally. No masses identified within the neck. No pneumothorax. No fractures within the visualized osseous structures. The paranasal sinuses and mastoid air cells are clear. The major cervical vessels enhance normally. The parotid glands are symmetric. The bilateral submandibular glands are edematous. There are few prominent bilateral upper cervical lymph nodes. These may be reactive. Mild edema is also noted at the floor the mouth. IMPRESSION: Mild edema and enlargement within the tongue, submandibular glands, uvula, and mouth floor. This results in mild narrowing of the posterior oropharynx. ACT 112: Negative or not required by law. Electronically signed by: Montrell Dempsey M.D. 04/30/2022 4:23 PM Discharge Plan Visit Data Chief Complaint: Dental/Oral Stated Complaint: swollen tongue ED Provider: Joselito Chowdhury Discharge Problem: Angio-edema, Tongue swelling, Leukocytosis, Trouble swallowing Patient Disposition: Admitted As Inpatient Condition: Serious Discharge Instructions Interventions: ED Discharge Assessment Last Done: 04/30/22 18:30
[2022-04-30 14:53] LABS: Basophils # (auto) 0.07 K/uL (0-0.2); Basophils % (auto) 0.6 %; Eosinophils # (auto) 0.22 K/uL (0-0.50); Eosinophils % (auto) 1.8 %; Hematocrit (blood only) 48.2 % (40.1-51.0); Hemoglobin 16.6 g/dl (14.0-18.0); Immature Granulocytes # (auto) 0.05 K/uL (0.00-0.02); Immature Granulocytes % (auto) 0.4 %; Lymphocytes # (auto) 2.57 K/uL (1.2-3.4); Lymphocytes % (auto) 21.4 %; Mean Corpuscular Hemoglobin 30.6 pg (25.0-34.0); Mean Corpuscular Hgb Conc 34.4 g/dL (32.0-36.0); Mean Corpuscular Volume 88.9 fL (80.0-100.0); Mean Platelet Volume 11.4 fL (9.4-12.4); Monocytes # (auto) 0.85 K/uL (0.24-0.82); Monocytes % (auto) 7.1 %; Neutrophils # (auto) 8.25 K/uL (1.4-6.5); Neutrophils % (auto) 68.7 %; Platelet Count 266 K/uL (130-400); RDW Coefficient of Variation 12.8 % (11.5-14.5); RDW Standard Deviation 41.8 fL (36.4-46.3); Red Blood Count 5.42 M/uL (4.63-6.08); White Blood Count 12.01 K/ul (4.8-10.8)
[2022-04-30] MEDS ORDERED: CLINDAMYCIN/D5W 900 MG/50 ML BAG IV ONE (14:58)
[2022-04-30] MEDS ORDERED: LABETALOL HCL IV 5 MG/ML 20ML IV STA (15:27)
[2022-04-30 15:42] LABS: Albumin Globulin Ratio 1.1 (0.9-2); Albumin Level 3.8 gm/dl (3.4-5.0); BUN Creatinine Ratio 12.5 (10-20); Bilirubin,Total 0.5 mg/dl (0.2-1.0); Calcium 9.1 mg/dl (8.5-10.1); Creatinine Clr Calc Pharmacy 139.9 ml/min; Est GFR (African American) 119.4 ml/min; Globulin 3.5 gm/dl (2.5-4.0); Potassium 4.1 mmol/L (3.5-5.1); Total Protein 7.3 gm/dl (6.0-8.3)
[2022-04-30] MEDS ORDERED: NovoLIN-R INSULIN PER UNIT CHARGE IV STA (15:47)
--- NOTE | 2022-04-30 16:08 | Communication Note ---
Date of Service: April 30, 2022 I was called by Dr. Chowdhury to evaluate the patient 2/2 angioedema. Upon evaluating the patient, he had an edematous tongue. The patient was able to speak. He stated having no trouble breathing or swallowing. The patient was recently given solumedrol, benadryl, epinephrine, and pepcid. I spoke to the patient about potentially having to receive an endotracheal tube if his symptoms worsened. The patient was understanding. I re-evaluated the patient about an hour later, and he stated that his symptoms seemed to be improving. He still had an edematous tongue, but he denied trouble breathing or swallowing. I spoke with Dr. Chowdhury, and we agreed to continue monitoring the patient. The patient would need a fiberoptic intubation if his symptoms worsened. Again, the patient was understanding.
[2022-04-30] MEDS ORDERED: OPTIRAY 350 100ml IV ONE (16:12)
--- NOTE | 2022-04-30 16:25 | CT Scan Report ---
CT soft tissue neck w con HISTORY: Swollen tongue. Leg TECHNIQUE: Multiaxial CT images of the neck were performed following the intravenous administration o f contrast. Sagittal and coronal reformations were performed at the workstation by the radiologist. COMPARISON STUDY: None. FINDINGS: The visualized brain parenchyma and orbits are unremarkable. The pterygopalatine fossa and parapharyngeal fat spaces are well-maintained. The tongue is mildly enlarged and edematous. There is also mild thickening of the uvula. This results in mild narrowing of the oropharynx. The epiglottis a nd prevertebral soft tissues are normal in thickness. No loculated fluid collections to suggest an ab scess. The thyroid gland enhances normally. No masses identified within the neck. No pneumothorax. No fractures within the visualized osseous structures. The paranasal sinuses and mastoid air cells are clear. The major cervical vessels enhance normally. The parotid glands are symmetric. The bilateral s ubmandibular glands are edematous. There are few prominent bilateral upper cervical lymph nodes. Thes e may be reactive. Mild edema is also noted at the floor the mouth. IMPRESSION: Mild edema and enlargement within the tongue, submandibular glands, uvula, and mouth floor. This resu lts in mild narrowing of the posterior oropharynx. ACT 112: Negative or not required by law. Electronically signed by: Montrell Dempsey M.D. 04/30/2022 4:23 PM
--- NOTE | 2022-04-30 16:50 | History & Physical Report ---
Date of Service April 30, 2022 Assessment & Plan (1) Tongue swelling: Plan: Angioedema without urticaria - CT: Mild edema and enlargement within the tongue, submandibular glands, uvula, and mouth floor. This results in mild narrowing of the posterior oropharynx. No recent use of RUBEN/DPP 4/ CCB/NSAID No eosinophilia On review of morning prior to onset of symptoms patient had not eaten, did smoke some of his usual cigarettes, had no new shampoos/creams/food/substance ingestion/medications. Only medication was his usual Synthroid. Interview with hydrochlorothiazide, metoprolol, aspirin, alprazolam, metformin, Protonix. Has taken all of these as prescribed and reports that has not had these filled or switched formulation/generic/pharmacy lately. CRP/C4 levels pending ? Amoxicillin induced, although patient has tolerated penicillin based antibi otics previously. We will convert to clindamycin every 8 hours 1 unit of FFP on order for worsening angioedema ICU/anesthesiology consulted by ER provider, note patient required nasal access for airway if clinically worsening Clinically improving at time of admission Follow-up with allergy as outpatient once stable, if C4 level abnormal follow- up with C1 Tryptase pending Type 2 diabetes mellitus Hold glipizide, metformin ICU hyperglycemic protocol, patient received 10 units of IV insulin for BSG in the 300s prior to transfer. Pending PSG recheck Glucose checks AC/at bedtime, or every 6 hours while NPO No DPP 4 per patient as noted above Hypothyroidism TSH pending Synthroid held while n.p.o. Hypertension Hold home hydrochlorothiazide, metoprolol, aspirin while n.p.o. DVT prophylaxis, low risk, SCDs. Chemical prophylaxis held Diet: N.p.o. Disposition: ICU CODE STATUS: Full code (2) Hypertension: (3) Hyperglycemia: (4) Morbid obesity with BMI of 40.0-44.9, adult: (5) Hypothyroidism: (6) GERD (gastroesophageal reflux disease): History of Present Illness Primary Care Provider: NO PCP Yayo Ward is a 47-year-old female male with a past medical history of morbid obesity BMI 44, GERD, renal stones, and hypothyroidism who presents to the emergency department with tongue swelling limiting speech. Past medical history of angioedema in the setting of allergic reaction eyedrops versus RUBEN. Patient has been on amoxicillin for odontogenic infection, has a history of penicillin tolerance. He was evaluated in the emergency department by both ER provider and anesthesia due to concern for edematous tongue. Patient was noted to have intact speech with no difficulty breathing or swallowing, given IV steroids/Benadryl/epi/Pepcid. On reevaluation symptoms were slowly improving and careful observation was recommended. Was discussed with ENT, anesthesia. Follow clinically as long as no trach is required, ENT will follow peripherally. Patient is gradually improving, intubation not recommended at time of assessment. Would require difficult nasal approach. Patient seen at bedside, reports had swelling that started for 1 day (this morning). Was with a similar episode last year when a's was discontinued. No family history of similar probl ems. He has been on amoxicillin for odontogenic infection, but has tolerated penicillin in the past. His lip and tongue swelling is not associated with the rash. He has had no new medications, no new refills, no substitutes or generic changes. His symptoms started around 9:30 in the morning after waking up, he did not have breakfast or coffee prior to this. Did smoke cigarettes of his usual brand. Did take Synthroid no other medications. No nausea/vomiting/diarrhea/abdominal symptoms. No chest pain, chest pressure. No wheezing or shortness of breath. Is breathing comfortably at time bedside assessment and denies fever/chills/rash/lightheadedness/respiratory discomfort. Medical History: Reviewed Medications: Reviewed Surgical History: Reviewed Allergies: Reviewed Social History: Smoke 1ppd, no etoh. No MMor rec drugs. Code Status: Full Code Allergies Allergy/AdvReac Type Severity Reaction Status Date / Time codeine Allergy Severe RASH Verified 05/05/21 18:38 hydroxyamphetamine Allergy Severe Swelling Verified 05/12/21 06:57 [From Paremyd] of Lip/Tongue/Throat lisinopril Allergy Severe Swelling Verified 05/12/21 06:56 of Lip/Tongue/Throat tramadol Allergy Severe RASH Verified 01/06/18 22:14 tropicamide [From Paremyd] Allergy Severe Swelling Verified 05/12/21 06:57 of Lip/Tongue/Throat Home Medications Medication Instructions Recorded Confirmed Type alprazolam 1 mg tablet 1 mg PO HS 05/05/21 05/05/21 History aspirin 81 mg tablet,delayed 81 mg PO QAM 05/05/21 05/05/21 History release levothyroxine 25 mcg tablet 25 mcg PO DAILY 05/05/21 05/05/21 History metformin 1,000 mg tablet 1,000 mg PO AMPM 05/05/21 05/05/21 History pantoprazole 40 mg tablet,delayed 40 mg PO HS 05/05/21 05/05/21 History release Past Med/Surg History Medical History Anxiety Hyperglycemia Hypertension Tobacco abuse counseling Tongue swelling Social History Smoking Status: Current every day smoker Tobacco Type: Cigarettes Cigarettes Per Day: 30; Hx Alcohol Use: Yes Hx Substance Use: No Preferred Language: Senegalese Communication Ability: Effective Hemmer Automatic Required: No Beliefs That Will Affect Care: None Current Living Situation: Significant Other Current Living Situation Comment: Girlfriend and 3 children Feels Safe at Home: Yes Assistive Devices: Oxygen - at Night Review of Systems Review of Systems: All systems reviewed & are unremarkable except as noted in HPI & below Physical Exam Physical Exam: General: A&Ox3. Cooperative. Nontoxic. HEENT: Diffuse lip, tongue swelling. No wheezing/stridor. No ulceration. Vision/hearing grossly intact. Patient is able speak at time of bedside assessment, reports swelling and ability to speak is gradually improving Pulm: CTAB A&P. -wheezes, -rales, -rhonchi. Symmetrical chest rise. No increase in work of breathing. No respiratory distress. Cardiac: RRR, -mrg. Radial pulses intact and symmetrical. Abdominal: Nontender, nondistended, soft. BS present. Skin: Skin intact. no urticarial or other rash on arms, legs, chest, back, or neck is appreciated. Extremities: Warm, dry. Moves upper and lower extremities equally. Sensation in hands and feet intact without asymmetry. Results & Data Results & Data ([facility]) Vital Signs (Past 12 Hours) Vital Signs Temp Pulse Pulse Resp BP BP Pulse Ox 04/30/22 16:23 69 16 171/90 H 96 04/30/22 16:00 78 24 96 04/30/22 16:00 173/96 H 04/30/22 15:59 83 18 04/30/22 15:59 167/116 H 04/30/22 15:30 80 24 94 04/30/22 15:30 193/126 H 04/30/22 15:57 83 19 167/116 H 04/30/22 15:00 88 24 94 04/30/22 15:00 192/105 H 04/30/22 14:36 90 21 94 04/30/22 14:48 95 04/30/22 14:24 90 22 182/119 H 96 04/30/22 14:15 36.6 C 90 20 206/122 H 94 O2 Del Method O2 Flow Rate 04/30/22 16:23 Room Air 04/30/22 16:00 04/30/22 16:00 04/30/22 15:59 04/30/22 15:59 04/30/22 15:30 04/30/22 15:30 04/30/22 15:57 04/30/22 15:00 04/30/22 15:00 04/30/22 14:36 04/30/22 14:48 Room Air 0 04/30/22 14:24 Room Air 04/30/22 14:15 Room Air PG Care Time/CCT Total # of Minutes Spent Total Time Spent with Patient: Total time spent is greater than 50% in coordination of care (as documented) at patient's floor/unit and/or counseling patient: Coding Level of Care Code 75299 Initial Inpt Care Lvl 3 Diagnoses Tongue swelling R22.0 Hypertension I10 Hyperglycemia R73.9 Morbid obesity with BMI of 40.0-44.9, adult E66.01; Z68.41 Hypothyroidism E03.9 GERD (gastroesophageal reflux disease) K21.9
--- NOTE | 2022-04-30 17:00 | Critical Care Consultation ---
Date of Consultation April 30, 2022 Assessment & Plan (1) Tongue swelling: We will monitor in the ICU. Possible angioedema and/or allergic reaction to amoxicillin for dental infection. Received methylprednisone in the ER. We will start dexamethasone 6 mg, every 8 hours. Received Benadryl, FFP, Pepcid, 0.3 mg IM epinephrine and clindamycin in the ER. C1 esterase and complement levels checked in 2020 which were unremarkable. Will need allergy/immunology follow-up as an outpatient. (2) Hypertension: Received labetalol in the ER. We will continue to monitor blood pressures closely while in the ICU. Avoid RUBEN inhibitor or ARB. (3) Morbid obesity with BMI of 40.0-44.9, adult: Weight loss and exercise encouraged. (4) Hyperglycemia: ICU hyperglycemic consult. (5) Tobacco abuse counseling: Likely contributing to tongue swelling. Encouraged to quit. History of Present Illness Reason for Consultation: Angioedema History of Present Illness 47-year-old male presenting to the ER with tongue swelling. He was evaluated by anesthesia who did not feel that he needed to be intubated urgently. Interestingly he had a very similar presentation in April 2021. He had CT of his neck 04/30/2022 which revealed mild edema enlargement over the tongue, submandibular glands, uvula and valve floor. Mild narrowing of the posterior oropharynx. He feels that his swelling has improved. He swallowing has improved a bit. He denies any chest pain. Mild shortness of breath with exertion. Currently saturating well on room air. Allergies Allergy/AdvReac Type Severity Reaction Status Date / Time codeine Allergy Severe RASH Verified 05/05/21 18:38 hydroxyamphetamine Allergy Severe Swelling Verified 05/12/21 06:57 [From Paremyd] of Lip/Tongue/Throat lisinopril Allergy Severe Swelling Verified 05/12/21 06:56 of Lip/Tongue/Throat tramadol Allergy Severe RASH Verified 01/06/18 22:14 tropicamide [From Paremyd] Allergy Severe Swelling Verified 05/12/21 06:57 of Lip/Tongue/Throat Home Medications Medication Instructions Recorded Confirmed Type alprazolam 1 mg tablet 1 mg PO HS 05/05/21 05/05/21 History aspirin 81 mg tablet,delayed 81 mg PO QAM 05/05/21 05/05/21 History release levothyroxine 25 mcg tablet 25 mcg PO DAILY 05/05/21 05/05/21 History metformin 1,000 mg tablet 1,000 mg PO AMPM 05/05/21 05/05/21 History pantoprazole 40 mg tablet,delayed 40 mg PO HS 05/05/21 05/05/21 History release Patient History Medical History (Updated 04/30/22 @ 17:16 by Jax Salazar MD) Anxiety Hyperglycemia Hypertension Tobacco abuse counseling Tongue swelling Social History Smoking Status: Current every day smoker Tobacco Type: Cigarettes Cigarettes Per Day: 30; Hx Alcohol Use: Yes Hx Substance Use: No Preferred Language: Swedish Communication Ability: Effective Photo Mask Processor Required: No Beliefs That Will Affect Care: None Current Living Situation: Significant Other Current Living Situation Comment: Girlfriend and 3 children Feels Safe at Home: Yes Assistive Devices: Oxygen - at Night Review of Systems Review of Systems: All systems reviewed & are unremarkable except as noted in HPI & below Physical Exam Physical Exam: Constitutional: Obese appearing male in mild distress. Eyes: Pupils are equal round and reactive to light. Conjunctivae are normal. Anicteric sclera. Ears nose, mouth and throat: Swollen tongue. Difficult to visualize posterior oropharynx. No significant stridor. Snoring is audible. Neck: Trachea is midline. Visual inspection is normal. Respiratory: Clear to auscultation bilaterally. No use of accessory muscles. No significant clubbing noted. Cardiovascular: Regular rate and rhythm. No murmurs. No edema. Gastrointestinal: Normal bowel sounds, soft, nontender and nondistended. No hepatosplenomegaly noted. Musculoskeletal: No cyanosis. Patient is able to move all extremities. Strength is 5 out of 5 in the upper and lower extremities. Skin: No rashes, warm dry and intact. Neurologic: No obvious focal neurological deficits seen. Psychiatric: Alert and oriented x3 with a euthymic affect. Results & Data Results & Data ([facility]) Vital Signs (Past 12 Hours) Vital Signs Temp Pulse Pulse Resp BP BP Pulse Ox 04/30/22 16:23 69 16 171/90 H 96 04/30/22 16:00 78 24 96 04/30/22 16:00 173/96 H 04/30/22 15:59 83 18 04/30/22 15:59 167/116 H 04/30/22 15:30 80 24 94 04/30/22 15:30 193/126 H 04/30/22 15:57 83 19 167/116 H 04/30/22 15:00 88 24 94 04/30/22 15:00 192/105 H 04/30/22 14:36 90 21 94 04/30/22 14:48 95 04/30/22 14:24 90 22 182/119 H 96 04/30/22 14:15 36.6 C 90 20 206/122 H 94 O2 Del Method O2 Flow Rate 04/30/22 16:23 Room Air 04/30/22 16:00 04/30/22 16:00 04/30/22 15:59 04/30/22 15:59 04/30/22 15:30 04/30/22 15:30 04/30/22 15:57 04/30/22 15:00 04/30/22 15:00 04/30/22 14:36 04/30/22 14:48 Room Air 0 04/30/22 14:24 Room Air 04/30/22 14:15 Room Air Coding Level of Care Code 26183 Inpt Consult Level 4 Diagnoses Tongue swelling R22.0 Hypertension I10 Morbid obesity with BMI of 40.0-44.9, adult E66.01; Z68.41 Hyperglycemia R73.9 Tobacco abuse counseling Z71.6
[2022-04-30] MEDS ORDERED: ICU Protocol for HYPERglycemia SCH (17:30)
[2022-04-30] MEDS ORDERED: ICU Protocol for HYPERglycemia PRN (18:46)
[2022-04-30] MEDS ORDERED: diphenhydrAMINE 50 MG/ML VIAL IV PRN (18:46)
[2022-04-30] MEDS: dexAMETHasone 6 MG in SYRINGE 0 ML IV SCH (19:33)
[2022-04-30] MEDS ORDERED: ICU SEVERE HYPERGLYCEMIA PROTOCOL ONE (19:53)
[2022-04-30] MEDS ORDERED: NICOTINE 21 MG/24 HR TDSY TD SCH (20:00)
[2022-04-30] MEDS: FAMOTIDINE 20 MG in SYRINGE 3 ML IV SCH (20:55)
[2022-04-30] MEDS ORDERED: PHARMACY GLYCEMIC MGMT CONSULT PRN (20:58)
[2022-04-30] MEDS ORDERED: GLUCAGON FOR INJ 1 MG VIAL IM PRN (21:30)
[2022-04-30] MEDS ORDERED: GLUCOSE 40% GEL 15 GM TUBE PO PRN (21:30)
[2022-04-30] MEDS ORDERED: DEXTROSE 50% 50 ML SYRINGE IV PRN (21:30)
[2022-04-30] MEDS ORDERED: CARBOHYDRATES FOR HYPOGLYCEMIA PO PRN (21:30)
[2022-04-30] MEDS ORDERED: GLUCOSE 10 TAB/TUBE PO PRN (21:30)
[2022-04-30] MEDS ORDERED: LANTUS PER UNIT CHARGE SQ ONE (21:30)
[2022-04-30] MEDS: INSULIN ASPART PER UNIT SC SCH (22:08)
[2022-05-01] MEDS: INSULIN ASPART PER UNIT SC SCH ×3 (00:08→07:57)
[2022-05-01] MEDS: CLINDAMYCIN/D5W 600 MG/50 ML BAG IV SCH ×2 (00:09→07:49)
[2022-05-01] MEDS: dexAMETHasone 6 MG in SYRINGE 0 ML IV SCH ×2 (02:35→07:49)
[2022-05-01 04:25] LABS: Basophils # (auto) 0.02 K/uL (0-0.2); Basophils % (auto) 0.2 %; Hematocrit (blood only) 45.8 % (40.1-51.0); Hemoglobin 15.6 g/dl (14.0-18.0); Immature Granulocytes # (auto) 0.08 K/uL (0.00-0.02); Immature Granulocytes % (auto) 0.7 %; Lymphocytes # (auto) 0.99 K/uL (1.2-3.4); Lymphocytes % (auto) 8.3 %; Mean Corpuscular Hgb Conc 34.1 g/dL (32.0-36.0); Mean Corpuscular Volume 91.1 fL (80.0-100.0); Mean Platelet Volume 11.3 fL (9.4-12.4); Monocytes # (auto) 0.21 K/uL (0.24-0.82); Monocytes % (auto) 1.8 %; Platelet Count 240 K/uL (130-400); RDW Coefficient of Variation 12.7 % (11.5-14.5); RDW Standard Deviation 41.9 fL (36.4-46.3); Red Blood Count 5.03 M/uL (4.63-6.08)
[2022-05-01 04:50] LABS: BUN Creatinine Ratio 19.7 (10-20); C Reactive Protein 2.39 mg/dl (0-0.5); Calcium 8.9 mg/dl (8.5-10.1); Creatinine Clr Calc Pharmacy 201.9 ml/min; Est GFR (African American) 138.8 ml/min; Est GFR (Non-African American) 119.8 ml/min; Potassium 4.4 mmol/L (3.5-5.1)
[2022-05-01] MEDS: FAMOTIDINE 20 MG in SYRINGE 3 ML IV SCH (07:49)
[2022-05-01] MEDS ORDERED: LANTUS PER UNIT CHARGE SQ SCH (09:00)
[2022-05-01] MEDS ORDERED: methylPREDNISolone 125 MG/2 ML VIAL IV SCH (09:00)
[2022-05-01] MEDS ORDERED: methylPREDNISolone 60 MG in SYRINGE 0 ML IV SCH (09:00)
--- NOTE | 2022-05-01 09:19 | Critical Care Progress Note ---
Date of Service May 01, 2022 Assessment & Plan (1) Tongue swelling: Plan: Swelling has markedly decreased. Patient is able to swallow Jell-O. We will try regular diet. Patient is eager to go home. Will defer to hospitalist regarding discharge. He is safe to downgrade from the ICU. Would recommend a short steroid taper. C1 esterase and complement levels checked in 2020 which were unremarkable. Will need allergy/immunology follow-up as an outpatient. (2) Hypertension: Plan: Better controlled this morning. (3) Morbid obesity with BMI of 40.0-44.9, adult: Plan: Weight loss and exercise encouraged. (4) Hyperglycemia: Plan: ICU hyperglycemic consult. (5) Tobacco abuse counseling: Plan: Likely contributing to tongue swelling. Encouraged to quit. Admission and Anticipated Discharge Date Admission Date: April 30, 2022 Subjective Patient feels that his breathing is easier and it is easier for him to swallow. He ate Jell-O this morning without any problems. He feels that he is back to normal. He is eager to go home. Review of Systems Review of Systems: All systems reviewed & are unremarkable except as noted in HPI & below Physical Exam Physical Exam: Constitutional: Obese appearing male in mild distress. Eyes: Pupils are equal round and reactive to light. Conjunctivae are normal. Anicteric sclera. Ears nose, mouth and throat: Able to visualize posterior oropharynx with tongue depression. Tongue is visibly less swollen than it was yesterday. I am able to visualize the uvula which appears to be laying flat on the posterior aspect of the tongue. Neck: Trachea is midline. Visual inspection is normal. Respiratory: Clear to auscultation bilaterally. No use of accessory muscles. No significant clubbing noted. Cardiovascular: Regular rate and rhythm. No murmurs. No edema. Gastrointestinal: Normal bowel sounds, soft, nontender and nondistended. No hepatosplenomegaly noted. Musculoskeletal: No cyanosis. Patient is able to move all extremities. Strength is 5 out of 5 in the upper and lower extremities. Skin: No rashes, warm dry and intact. Neurologic: No obvious focal neurological deficits seen. Psychiatric: Alert and oriented x3 with a euthymic affect. Results & Data Results & Data ([facility]) Vital Signs (Past 12 Hours) Vital Signs Temp Pulse Resp BP Pulse Ox O2 Del Method O2 Flow Rate 05/01/22 08:00 74 05/01/22 06:00 74 19 134/85 96 Nasal Cannula 3 05/01/22 05:00 71 16 128/87 92 Nasal Cannula 3 05/01/22 04:00 36.5 C 84 21 132/90 94 Nasal Cannula 3 05/01/22 03:00 36.9 C 85 17 147/104 H 95 Nasal Cannula 2 05/01/22 02:00 76 21 150/100 H 93 2 05/01/22 01:00 67 20 127/101 H 93 2 05/01/22 00:30 83 22 96 05/01/22 00:17 36.7 C 87 20 156/97 H 96 Nasal Cannula 2 05/01/22 00:01 85 22 147/101 H 97 Nasal Cannula 2 04/30/22 23:30 83 22 126/80 78 L 04/30/22 23:01 88 27 H 93 04/30/22 23:00 83 23 89 L Room Air 04/30/22 22:30 86 22 91 04/30/22 22:00 99 H 20 177/92 H 91 04/30/22 21:46 100 H 31 H 166/100 H 92 Room Air 04/30/22 21:44 92 H 26 H 93 04/30/22 21:31 94 H 25 H 94 Room Air 04/30/22 21:30 94 H 18 157/99 H 94 04/30/22 21:25 92 H 21 94 05/01/22 00:00 85 04/30/22 22:05 36.7 C 95 H 24 177/92 H 92 04/30/22 21:35 36.9 C 100 H 22 166/100 H 95 04/30/22 21:20 36.4 C L 92 H 23 157/99 H 93 Coding Level of Care Code 35203 Subseq Hosp Care Lvl 2 Diagnoses Tongue swelling R22.0 Hypertension I10 Morbid obesity with BMI of 40.0-44.9, adult E66.01; Z68.41 Hyperglycemia R73.9 Tobacco abuse counseling Z71.6
[2022-05-01] MEDS ORDERED: predniSONE 20 MG TAB PO STA (09:28)
--- NOTE | 2022-05-01 13:54 | Discharge Summary ---
Date of Service May 01, 2022 Admission HPI Per Admitting Provider Yayo Ward is a 47-year-old female male with a past medical history of morbid obesity BMI 44, GERD, renal stones, and hypothyroidism who presents to the emergency department with tongue swelling limiting speech. Past medical history of angioedema in the setting of allergic reaction eyedrops versus RUBEN. Patient has been on amoxicillin for odontogenic infection, has a history of penicillin tolerance. He was evaluated in the emergency department by both ER provider and anesthesia due to concern for edematous tongue. Patient was noted to have intact speech with no difficulty breathing or swallowing, given IV steroids/Benadryl/epi/Pepcid. On reevaluation symptoms were slowly improving and careful observation was recommended. Was discussed with ENT, anesthesia. Follow clinically as long as no trach is required, ENT will follow peripherally. Patient is gradually improving, intubation not recommended at time of assessment. Would require difficult nasal approach. Patient seen at bedside, reports had swelling that started for 1 day (this morning). Was with a similar episode last year when a's was discontinued. No family history of similar problems. He has been on amoxicillin for odontogenic infection, but has tolerated penicillin in the past. His lip and tongue swelling is not associated with the rash. He has had no new medications, no new refills, no substitutes or generic changes. His symptoms started around 9:30 in the morning after waking up, he did not have breakfast or coffee prior to this. Did smoke cigarettes of his usual brand. Did take Synthroid no other medications. No nausea/vomiting/diarrhea/abdominal symptoms. No chest pain, chest pressure. No wheezing or shortness of breath. Is breathing comfortably at time bedside assessment and denies fever/chills/rash/lightheadedness/respiratory discomfort. Medical History: Reviewed Medications: Reviewed Surgical History: Reviewed Allergies: Reviewed Social History: Smoke 1ppd, no etoh. No MMor rec drugs. Code Status: Full Code Principal Diagnosis Angioedema - Possibly from amoxicillin, but not certain Discharge Exam Gen: NAD HEENT: Tongue appears normal size. No strider. Resp: Breathing comfortably CV: RRR, no m/r/g Discharge Data Allergies Allergy/AdvReac Type Severity Reaction Status Date / Time codeine Allergy Severe RASH Verified 05/05/21 18:38 hydroxyamphetamine Allergy Severe Swelling Verified 05/12/21 06:57 [From Paremyd] of Lip/Tongue/Throat lisinopril Allergy Severe Swelling Verified 05/12/21 06:56 of Lip/Tongue/Throat tramadol Allergy Severe RASH Verified 01/06/18 22:14 tropicamide [From Paremyd] Allergy Severe Swelling Verified 05/12/21 06:57 of Lip/Tongue/Throat Consultations 04/30/22 16:43 ED Decision to Admit Stat 04/30/22 18:46 Consult Pastrycook Routine Ordered Studies 04/30/22 14:28 CT neck soft tissues [CT soft tissue neck w con] Stat Hospital Course (1) Tongue swelling: Angioedema without urticaria - CT: Mild edema and enlargement within the tongue, submandibular glands, uvula, and mouth floor. This results in mild narrowing of the posterior oropharynx. No recent use of RUBEN/DPP 4/ CCB/NSAID No eosinophilia On review of morning prior to onset of symptoms patient had not eaten, did smoke some of his usual cigarettes, had no new shampoos/creams/food/substance ingestion/medications. Only medication was his usual Synthroid. Interview with hydrochlorothiazide, metoprolol, aspirin, alprazolam, metformin, Protonix. Has taken all of these as prescribed and reports that has not had these filled or switched formulation/generic/pharmacy lately. CRP/C4 levels pending ? Amoxicillin induced, although patient has tolerated penicillin based antibiotics previously. We will convert to clindamycin every 8 hours 1 unit of FFP on order for worsening angioedema ICU/anesthesiology consulted by ER provider, note patient required nasal access for airway if clinically worsening Clinically improving at time of admission Follow-up with allergy as outpatient once stable, if C4 level abnormal follow- up with C1 Tryptase pending -> Much improved by 05/01. Patient was impatient to go. Steroid taper prescribed. Zyrtec BID until seen by allergy/immunology. Avoid all penicillins until seen by allergy/immunology. Type 2 diabetes mellitus Hold glipizide, metformin ICU hyperglycemic protocol, patient received 10 units of IV insulin for BSG in the 300s prior to transfer. Pending PSG recheck Glucose checks AC/at bedtime, or every 6 hours while NPO No DPP 4 per patient as noted above Hypothyroidism TSH pending Synthroid held while n.p.o. Hypertension Hold home hydrochlorothiazide, metoprolol, aspirin while n.p.o. DVT prophylaxis, low risk, SCDs. Chemical prophylaxis held Diet: N.p.o. Disposition: ICU CODE STATUS: Full code (2) Hypertension: (3) Hyperglycemia: (4) Morbid obesity with BMI of 40.0-44.9, adult: (5) Hypothyroidism: (6) GERD (gastroesophageal reflux disease): Total Time Total Time Spent Total Time Spent (In Minutes): 35 Discharge Plan Discharge Items Patient Disposition: Home - Self-Care Reason For Visit: ANGIOEDEMA Discharge Diagnosis: Second case of angioedema Condition on Discharge: Good Activity: Resume your previous activity Non-emergency contact: Primary Care Provider and Specialist Call non-emergency contact if: your symptoms worsen Follow-up/Referrals: Mg Leroy MD [Physician] - (Please see Dr. Leroy at the earliest available spot.) PCP,NO [Primary Care Provider] - Diet: Regular Addtl Attending Provider Instructions: Mr. Ward, You were admitted with another episode of angioedema. Last time, we thought it was due to your lisinopril which was stopped, and you haven't taken since. This time, the cause is not as clear. You were on some amoxicillin, but it looks like this was almost a month ago, so it seems fairly unlikely to be causing your symptoms. Please take the steroid taper we are sending to your pharmacy. You will take the following prednisone dosin mg (4 tabs) for 1 day (tomorrow, May 02), then 30 mg (3 tabs) for 1 day (May 03), then 20 mg (2 tabs) for 1 day (May 04), then 10 mg (1 tabs) for 1 day (May 05), then 5 mg (1/2 tab) for 2 days (May 06 & ), then stop. Also, please start taking Zyrtec (cetirizine) twice a day from here on out. Please follow up with the allergy doctor, Dr. Leroy in the office as soon as you can. We will have our nurse navigator contact you tomorrow to help schedule an appointment, but if you don't hear from her, please call the office. Please avoid any penicillin medications until you meet with Dr. Leroy. I have sent a prescription for clindamycin into your pharmacy which you have tolerated well here in the hospital. Please take every dose until it is gone. Antibiotics are not meant to be taken one or two, then stopped. You should complete the course to entirely kill the bacteria Pending Studies at Discharge: Yes Stand-Alone Forms: My [facility], Smoking Cessation Medications and DC Order Prescriptions: New cetirizine [All Day Allergy (cetirizine)] 10 mg tablet 10 mg PO BID Qty: 60 0RF prednisone 10 mg tablet See Rx Instructions .ROUTE .COMPLEX Qty: 11 0RF Rx Instructions: Please see discharge instructions for tapering schedule. clindamycin HCl 150 mg capsule 450 mg PO TID Qty: 45 0RF Continued metformin 1,000 mg tablet 1,000 mg PO AMPM aspirin 81 mg Tablet,Delayed Release (Dr/Ec) 81 mg PO QAM pantoprazole 40 mg tablet,delayed release (DR/EC) 40 mg PO HS levothyroxine 25 mcg tablet 25 mcg PO DAILY alprazolam 1 mg tablet 1 mg PO HS Discharge Orders: Discharge Order (Routine); Ordered 05/01/22 Ordered By: Caesar Eddy Admission Data Admit Date/Time: 04/30/22 17:16 Attending Provider: Caesar Eddy Admit Provider: Harsha Yeager Primary Care Provider: PCP,NO Other Providers: Harsha Yeager ; Jax Salazar Other Interventions: Discharge Summary Assessment (RN) Last Done: 05/01/22 09:42 Coding Level of Care Code D/C DAY MANAGEMENT >30 MINS Diagnoses Tongue swelling R22.0 Hypertension I10 Hyperglycemia R73.9 Morbid obesity with BMI of 40.0-44.9, adult E66.01; Z68.41 Hypothyroidism E03.9 GERD (gastroesophageal reflux disease) K21.9
[2022-05-02 06:36] LABS: Estimated Average Glucose 280 mg/dl; Hemoglobin A1C 11.4 % (4.5-5.6)
== END 2022-05-01 10:06 | disposition home or self-care (01) | DRG 916 ==
LOC: ED 14:12 → 1E 17:16 → INTOOBSV 17:16 → SUATTDRO 17:16 → 1E 18:30

== ENCOUNTER 2022-06-13 01:52 | Observation (INO) ==
[2022-06-13] MEDS ORDERED: FAMOTIDINE 20MG IV PUSH 20 MG/5 ML SYR IV STA (01:55)
[2022-06-13] MEDS ORDERED: diphenhydrAMINE 50 MG/ML VIAL IV STA (01:55)
[2022-06-13] MEDS ORDERED: dexAMETHasone**PF** 10 MG/ML VIAL IV ONE (01:55)
--- NOTE | 2022-06-13 01:59 | Emergency Department Note ---
History of Present Illness General Chief complaint: Allergic Reaction Stated complaint: ALLERGIC REACTION/TONGUE SWELLING Time Seen by Provider: 06/13/22 01:52 History of Present Illness This 47-year-old with a history of idiopathic angioedema presents to the ER complaining of angioedema who took his EpiPen just prior to arrival Location: Tongue Quality: Swollen Severity: Moderate Duration: Tonight Timing: Tonight Context: Patient was concerned and came in Modifying factors: better with epinephrine; worse with nothing Patient states he said nothing new in his diet. No new soaps detergents or me dications. No current antibiotics. He is continuing to smoke. Patient denies chest pain, dyspnea, throat tightness. He states his tongue feels swollen but not as bad as it was before the EpiPen. Normal complement levels in the past. Home Medications Medication Instructions Recorded Confirmed Type alprazolam 1 mg tablet 1 mg PO HS 05/05/21 05/05/21 History aspirin 81 mg tablet,delayed 81 mg PO QAM 05/05/21 05/05/21 History release levothyroxine 25 mcg tablet 25 mcg PO DAILY 05/05/21 05/05/21 History metformin 1,000 mg tablet 1,000 mg PO AMPM 05/05/21 05/05/21 History pantoprazole 40 mg tablet,delayed 40 mg PO HS 05/05/21 05/05/21 History release cetirizine 10 mg tablet (All Day 10 mg PO BID #60 tabs 05/01/22 Rx Allergy (cetirizine)) clindamycin HCl 150 mg capsule 450 mg PO TID #45 caps 05/01/22 Rx prednisone 10 mg tablet See Rx Instructions .Route 05/01/22 Rx .COMPLEX #11 tabs Allergies Allergy/AdvReac Type Severity Reaction Status Date / Time codeine Allergy Severe RASH Verified 05/05/21 18:38 hydroxyamphetamine Allergy Severe Swelling Verified 05/12/21 06:57 [From Paremyd] of Lip/Tongue/Throat lisinopril Allergy Severe Swelling Verified 05/12/21 06:56 of Lip/Tongue/Throat tramadol Allergy Severe RASH Verified 01/06/18 22:14 tropicamide [From Paremyd] Allergy Severe Swelling Verified 05/12/21 06:57 of Lip/Tongue/Throat Past Med/Surg History Medical History (Updated 06/13/22 @ 03:19 by Yari Ritter PA-C) Anxiety Hyperglycemia Hypertension Tobacco abuse counseling Tongue swelling Surgical History (Updated 06/13/22 @ 01:59 by Yari Ritter PA-C) No pertinent past surgical history Social History Smoking Status: Current every day smoker Tobacco Type: Cigarettes Cigarettes Per Day: 20; Second Hand Exposure: Yes; Hx Alcohol Use: No Hx Substance Use: No Preferred Language: Albanian Communication Ability: Effective Material Control Manager Required: No Beliefs That Will Affect Care: None Current Living Situation: Family Current Living Situation Comment: Girlfriend and 3 children Feels Safe at Home: Yes Assistive Devices: Glasses Review of Systems A total of 10 systems reviewed and were otherwise negative Physical Exam Vital Signs Vital Signs - 24 hr 06/13/22 01:57 06/13/22 01:41 06/13/22 02:18 Temperature 36.7 C Temperature Source Oral Pulse Rate 110 H Respiratory Rate 24 Respiratory Effort / Characteristics Non-Labored Spontaneous Respiratory Depth Normal Blood Pressure 173/103 H Blood Pressure Mean 126 Pulse Oximetry 94 94 95 Oxygen Delivery Method Room Air Room Air Sepsis Recent Fever Within 48 Hours No Sepsis New/Unexplained Change in Mental Status No Sepsis Action Taken by Nursing No Action Required VITALS: Vitals are noted on the nurse's note and reviewed by myself. Vital signs stable. GENERAL: Pleasant gentleman with a enlarged tongue, in no acute distress, nondiaphoretic, well-developed well-nourished. SKIN: The skin was without rashes, erythema, edema, or bruising. There is no tenting of the skin. Capillary reflex less than 2 seconds. HEAD: Normocephalic atraumatic. EARS: External auditory canals clear, tympanic membranes pearly hardy without erythema or effusion bilaterally. EYES: Pupils equal round and reactive to light and accommodation. Conjunctivae without injection, sclerae without icterus. Extraocular movements intact. NOSE: Patent, turbinates without inflammation or discharge. No sinus tenderness. MOUTH: Mucous membranes moist. Pharynx without erythema or exudate. Uvula midline. Airway patent. Tongue is extremely edematous but not impeding the airway does not deviate. NECK: Supple without nuchal rigidity. No lymphadenopathy. No thyromegaly. Cervical spine is nontender. No JVD. HEART: Regular rate and rhythm LUNGS: Clear to auscultation bilaterally without wheezes, rales or rhonchi. No retractions or accessory muscle use. ABDOMEN: Positive bowel sounds x 4. Normal tympanic percussion. Soft, nontender, without masses or organomegaly. Gonzalez sign negative. No guarding or rebound tenderness. No CVA tenderness MUSCULOSKELETAL: No muscle atrophy, erythema, noted. NEURO: Patient was alert and oriented to person place and time. Normal sensation to light and sharp touch. No focal neurological deficits. Course Administered Medications Discontinued Medications Dexamethasone Sodium Phosphate (DexamethasonePf 10 Mg/Ml Vial) 10 mg IV NOW ONE Stop: 06/13/22 01:56 Last Admin: 06/13/22 02:08 Dose: 10 mg Documented By: CONSTANZA Diphenhydramine HCl (Diphenhydramine 50 Mg/Ml Vial) 50 mg IV NOW STA Stop: 06/13/22 01:56 Last Admin: 06/13/22 02:08 Dose: 50 mg Documented By: CONSTANZA Famotidine (Pepcid 20mg Iv Push) 20 mg in 5 mls @ 2.5 mls/min IV NOW STA Stop: 06/13/22 01:56 Last Admin: 06/13/22 02:07 Dose: 2.5 mls/min Documented By: CONSTANZA Medical Decision Making Medical Records Attestation: I reviewed the patient's medical records. Home Medications Current Medication List: was personally reviewed by me Laboratory Data Attestation: I reviewed the patient's lab results. Result diagrams: 06/13/22 02:00 06/13/22 02:00 Lab Results 06/13/22 06/13/22 Range/Units 02:00 02:00 WBC 10.68 (4.8-10.8) K/ul RBC 5.41 (4.63-6.08) M/uL Hgb 16.6 (14.0-18.0) g/dl Hct 49.1 (40.1-51.0) % MCV 90.8 (80.0-100.0) fL MCH 30.7 (25.0-34.0) pg MCHC 33.8 (32.0-36.0) g/dL RDW Std Deviation 42.1 (36.4-46.3) fL RDW Coeff of Octavia 12.7 (11.5-14.5) % Plt Count 244 (130-400) K/uL MPV 11.3 (9.4-12.4) fL Immature Gran % (Auto) 0.4 % Neut % (Auto) 65.6 % Lymph % (Auto) 23.5 % Mcpherson % (Auto) 8.6 % Eos % (Auto) 1.3 % Baso % (Auto) 0.6 % Neut # (Auto) 7.01 H (1.4-6.5) K/uL Lymph # (Auto) 2.51 (1.2-3.4) K/uL Mcpherson # (Auto) 0.92 H (0.24-0.82) K/uL Eos # (Auto) 0.14 (0-0.50) K/uL Baso # (Auto) 0.06 (0-0.2) K/uL Immature Gran # (Auto) 0.04 H (0.00-0.02) K/uL Sodium 132 L (136-145) mmol/L Potassium 4.3 (3.5-5.1) mmol/L Chloride 97 L (98-107) mmol/L Carbon Dioxide 27 (21-32) mmol/L Anion Gap 8 (3-11) BUN 11 (6-23) mg/dl Creatinine 0.78 (0.6-1.4) mg/dl Est Cr Clr Drug Dosing 158.4 ml/min Est GFR ( Amer) 125.5 ml/min Est GFR (Non-Af Amer) 108.3 ml/min BUN/Creatinine Ratio 14.1 (10-20) Glucose 490 H* (70-99(Fasting)) mg/dl Calcium 8.9 (8.5-10.1) mg/dl Total Bilirubin 0.4 (0.2-1.0) mg/dl AST 28 (13-39) U/L ALT 55 H (7-52) U/L Alkaline Phosphatase 114 H (34-104) U/L Total Protein 7.1 (6.0-8.3) gm/dl Albumin 3.8 (3.4-5.0) gm/dl Globulin 3.3 (2.5-4.0) gm/dl Albumin/Globulin Ratio 1.2 (0.9-2) MDM Narrative Prior records/ancillary studies reviewed. Triage Nursing notes reviewed. Additional history obtained from EMS. The patient's history was concerning for possible allergic reaction. Differential diagnosis: Etiologies such as allergic reaction, anaphylaxis, urticaria, Gracia-Stone syndrome, toxic epidermal necrolysis, erythema multiforme, cellulitis, as well as others were entertained. Physical examination: As above. ER treatment provided: Continuous cardiac monitoring An order was placed for continuous cardiac monitoring. The monitor shows a rate of 60-1 50 with a sinus rhythm. Benadryl 50 mg IV Pepcid 20 mg IV Decadron 10 mg IV Patient took EpiPen just prior to arrival IV fluids On reassessment the patient felt minimally better. Diagnostic interpretation by me: Labs no worrisome leukocytosis Hyperglycemia without DKA Consultation: Hospitalist was consulted and will evaluate for admission. It appears the patient had an angioedema reaction that is recurrent with poorly controlled diabetes. Medicine is consulted. He will be evaluated for admission. Patient was able to speak. His tongue was quite edematous. Patient is agreeable to treatment plan of admission. By the evaluation outlined above emergent etiologies such as anaphylatic shock, Gracia-Stone syndrome, toxic epidermal necrolysis, erythema multiforme, infectious etiologies, as well as others were deemed relatively unlikely. The pt informed about the findings as listed above. All questions were answered and pleased with the treatment. The chart was completed utilizing [employer] Speech voice recognition software. Grammatical errors, random word insertions, pronoun errors, and incomplete sentences are an occassional consequence of this system due to software limitations, ambient noise, and hardware issues. Any formal questions or concerns about the content, text, or information contained within the body of this dictation should be directly addressed to the physician assistant pressman for clarification. Impression & Plan Angioedema, Acute hyperglycemia Discharge Plan Visit Data Chief Complaint: Allergic Reaction Stated Complaint: ALLERGIC REACTION/TONGUE SWELLING ED Provider: Brodie Thomas. ED Midlevel Provider: Yari Ritter Discharge Problem: Angioedema, Acute hyperglycemia Patient Disposition: Admitted As Inpatient Condition: Good Forms Stand Alone Forms: Virtual Emergency Department, Important Visit Information Prescriptions Prescriptions: No Action cetirizine [All Day Allergy (cetirizine)] 10 mg tablet 10 mg PO BID Qty: 60 0RF prednisone 10 mg tablet See Rx Instructions .ROUTE .COMPLEX Qty: 11 0RF Rx Instructions: Please see discharge instructions for tapering schedule. clindamycin HCl 150 mg capsule 450 mg PO TID Qty: 45 0RF metformin 1,000 mg tablet 1,000 mg PO AMPM aspirin 81 mg Tablet,Delayed Release (Dr/Ec) 81 mg PO QAM pantoprazole 40 mg tablet,delayed release (DR/EC) 40 mg PO HS levothyroxine 25 mcg tablet 25 mcg PO DAILY alprazolam 1 mg tablet 1 mg PO HS Referrals Referrals: PCP,NO [Physician] - : Angioedema Qualifiers: Encounter type: initial encounter Qualified Code(s): T78.3XXA - Angioneurotic edema, initial encounter
[2022-06-13 02:15] LABS: Basophils # (auto) 0.06 K/uL (0-0.2); Basophils % (auto) 0.6 %; Eosinophils # (auto) 0.14 K/uL (0-0.50); Eosinophils % (auto) 1.3 %; Hematocrit (blood only) 49.1 % (40.1-51.0); Hemoglobin 16.6 g/dl (14.0-18.0); Immature Granulocytes # (auto) 0.04 K/uL (0.00-0.02); Immature Granulocytes % (auto) 0.4 %; Lymphocytes # (auto) 2.51 K/uL (1.2-3.4); Lymphocytes % (auto) 23.5 %; Mean Corpuscular Hemoglobin 30.7 pg (25.0-34.0); Mean Corpuscular Hgb Conc 33.8 g/dL (32.0-36.0); Mean Corpuscular Volume 90.8 fL (80.0-100.0); Mean Platelet Volume 11.3 fL (9.4-12.4); Monocytes # (auto) 0.92 K/uL (0.24-0.82); Monocytes % (auto) 8.6 %; Neutrophils # (auto) 7.01 K/uL (1.4-6.5); Neutrophils % (auto) 65.6 %; Platelet Count 244 K/uL (130-400); RDW Coefficient of Variation 12.7 % (11.5-14.5); RDW Standard Deviation 42.1 fL (36.4-46.3); Red Blood Count 5.41 M/uL (4.63-6.08); White Blood Count 10.68 K/ul (4.8-10.8)
--- NOTE | 2022-06-13 02:41 | History & Physical Report ---
Date of Service June 13, 2022 Assessment & Plan (1) Angioedema: (2) Tongue swelling: (3) Trouble swallowing: (4) Hypertension: (5) Morbid obesity with BMI of 40.0-44.9, adult: (6) Hypothyroidism: (7) GERD (gastroesophageal reflux disease): (8) Tobacco abuse counseling: Plan Recurrent angioedema from unknown cause- Admit to monitored bed Received the following from the ED: Dexamethasone 10 mg IV, famotidine 20 mg IV and Benadryl 50 mg IV Dexamethasone 6 mg IV every 6 hours Famotidine 20 mg IV every 12 hours Benadryl 50 mg IV every 4 hours NSS + KCl 20 mEq at 80 mils per hour Zofran 4 mg IV every 6 hours as needed Hypothyroidism- Levothyroxine 25 mcg daily Diabetes mellitus- Hold metformin Placed on Accu-Cheks with SSI GERD- Changing pantoprazole orally to famotidine IV as noted above History of Present Illness Chief Complaint: The patient presents to the emergency department with complaint of a recurrence of acutely swollen tongue/angioedema, and just took his EpiPen prior to arrival Primary Care Provider: Scar Faustin DO The patient is a 47-year-old male with a past medical history including angioedema, tobacco abuse, hyperglycemia, hypertension, morbid obesity, hypothyroidism, GERD, and kidney stones. The patient presents acutely to the emergency department with swollen tongue, with unknown precipitating factor this evening. He reports being on his usual diet,, not on any current antibiotics, but does continue to smoke. In the emergency department he received the following: Dexamethasone 10 mg IV, famotidine 20 mg IV and Benadryl 50 mg IV. His most recent hospitalization for similar symptoms was from 04/30-05/01/2022. He reports no episodes since that time until today. He reports a pending appointment with Allergy in about 1 month Allergies Allergy/AdvReac Type Severity Reaction Status Date / Time codeine Allergy Severe RASH Verified 05/05/21 18:38 hydroxyamphetamine Allergy Severe Swelling Verified 05/12/21 06:57 [From Paremyd] of Lip/Tongue/Throat lisinopril Allergy Severe Swelling Verified 05/12/21 06:56 of Lip/Tongue/Throat tramadol Allergy Severe RASH Verified 01/06/18 22:14 tropicamide [From Paremyd] Allergy Severe Swelling Verified 05/12/21 06:57 of Lip/Tongue/Throat Home Medications Medication Instructions Recorded Confirmed Type alprazolam 1 mg tablet 1 mg PO HS 05/05/21 05/05/21 History aspirin 81 mg tablet,delayed 81 mg PO QAM 05/05/21 05/05/21 History release levothyroxine 25 mcg tablet 25 mcg PO DAILY 05/05/21 05/05/21 History metformin 1,000 mg tablet 1,000 mg PO AMPM 05/05/21 05/05/21 History pantoprazole 40 mg tablet,delayed 40 mg PO HS 05/05/21 05/05/21 History release cetirizine 10 mg tablet (All Day 10 mg PO BID #60 tabs 05/01/22 Rx Allergy (cetirizine)) clindamycin HCl 150 mg capsule 450 mg PO TID #45 caps 05/01/22 Rx prednisone 10 mg tablet See Rx Instructions .Route 05/01/22 Rx .COMPLEX #11 tabs Past Med/Surg History Medical History (Updated 06/13/22 @ 03:19 by Yari Ritter PA-C) Anxiety Hyperglycemia Hypertension Tobacco abuse counseling Tongue swelling Surgical History (Updated 06/13/22 @ 01:59 by Yari Ritter PA-C) No pertinent past surgical history Social History Smoking Status: Current every day smoker Tobacco Type: Cigarettes Cigarettes Per Day: 20; Second Hand Exposure: Yes; Hx Alcohol Use: No Hx Substance Use: No Preferred Language: Portuguese Communication Ability: Effective Bearing Machine Operator Required: No Beliefs That Will Affect Care: None Current Living Situation: Family Current Living Situation Comment: Girlfriend and 3 children Feels Safe at Home: Yes Assistive Devices: Glasses Review of Systems Review of Systems: The patient denies chest pain, palpitations, lower extremity swelling, fevers, chills, sweats, weight change, fatigue, nausea, vomiting, diarrhea , constipation, abdominal pain, pelvic pain, blood in urine or stool, dysuria, urinary frequency or urgency, lightheadedness, dizziness, headache, memory loss, loss of consciousness, rash, abnormal bruising or bleeding, imbalance, focal or generalized weakness, numbness or tingling in arms or legs, generalized arthralgias or myalgias, back or neck pain, or night sweats. The review of systems is otherwise negative other than for that already noted above, and at least 10 systems have been reviewed. Physical Exam Physical Exam: The patient is awake, alert and oriented 3, well developed and well nourished, normocephalic and atraumatic, lying in bed and in no further acute distress after the above treatment HEENT--PERRL, EOMI, mucous membranes and oropharynx dry. Tongue enlarged Neck--supple. No JVD. No bruits. Thyroid normal, trachea midline, no adenopathy. Heart--normal S1 and S2. No murmurs, rubs or gallops. Lungs--clear bilaterally, no respiratory distress, no accessory muscle use. Abdomen--normal bowel sounds and soft. Nontender. Nondistended. Morbidly obese Extremities--no cyanosis or clubbing. No edema. Dermatologic--normal skin turgor, normal color, no abnormal lymph nodes, no rash. Neurologic--cranial nerves II through XII grossly intact. Rheumatologic--normal range of motion. Psychiatric--normal affect. Results & Data Results & Data ([facility]) Vital Signs (Past 12 Hours) Vital Signs Temp Pulse Resp BP Pulse Ox O2 Del Method 06/13/22 02:18 95 Room Air 06/13/22 01:41 36.7 C 110 H 24 173/103 H 94 Room Air 06/13/22 01:57 94 Laboratory Results Laboratory Results WBC 10.68 K/ul (4.8-10.8) 06/13/22 02:00 RBC 5.41 M/uL (4.63-6.08) 06/13/22 02:00 Hgb 16.6 g/dl (14.0-18.0) 06/13/22 02:00 Hct 49.1 % (40.1-51.0) 06/13/22 02:00 MCV 90.8 fL (80.0-100.0) 06/13/22 02:00 MCH 30.7 pg (25.0-34.0) 06/13/22 02:00 MCHC 33.8 g/dL (32.0-36.0) 06/13/22 02:00 RDW Std Deviation 42.1 fL (36.4-46.3) 06/13/22 02:00 RDW Coeff of Octavia 12.7 % (11.5-14.5) 06/13/22 02:00 Plt Count 244 K/uL (130-400) 06/13/22 02:00 MPV 11.3 fL (9.4-12.4) 06/13/22 02:00 Immature Gran % (Auto) 0.4 % 06/13/22 02:00 Neut % (Auto) 65.6 % 06/13/22 02:00 Lymph % (Auto) 23.5 % 06/13/22 02:00 Sumner % (Auto) 8.6 % 06/13/22 02:00 Eos % (Auto) 1.3 % 06/13/22 02:00 Baso % (Auto) 0.6 % 06/13/22 02:00 Neut # (Auto) 7.01 K/uL (1.4-6.5) H 06/13/22 02:00 Lymph # (Auto) 2.51 K/uL (1.2-3.4) 06/13/22 02:00 Sumner # (Auto) 0.92 K/uL (0.24-0.82) H 06/13/22 02:00 Eos # (Auto) 0.14 K/uL (0-0.50) 06/13/22 02:00 Baso # (Auto) 0.06 K/uL (0-0.2) 06/13/22 02:00 Immature Gran # (Auto) 0.04 K/uL (0.00-0.02) H 06/13/22 02:00 Sodium 132 mmol/L (136-145) L 06/13/22 02:00 Potassium 4.3 mmol/L (3.5-5.1) 06/13/22 02:00 Chloride 97 mmol/L (98-107) L 06/13/22 02:00 Carbon Dioxide 27 mmol/L (21-32) 06/13/22 02:00 Anion Gap 8 (3-11) 06/13/22 02:00 BUN 11 mg/dl (6-23) 06/13/22 02:00 Creatinine 0.78 mg/dl (0.6-1.4) 06/13/22 02:00 Est Cr Clr Drug Dosing 158.4 ml/min 06/13/22 02:00 Est GFR ( Amer) 125.5 ml/min 06/13/22 02:00 Est GFR (Non-Af Amer) 108.3 ml/min 06/13/22 02:00 BUN/Creatinine Ratio 14.1 (10-20) 06/13/22 02:00 Glucose 490 mg/dl (70-99(Fasting)) H* 06/13/22 02:00 Calcium 8.9 mg/dl (8.5-10.1) 06/13/22 02:00 Total Bilirubin 0.4 mg/dl (0.2-1.0) 06/13/22 02:00 AST 28 U/L (13-39) 06/13/22 02:00 ALT 55 U/L (7-52) H 06/13/22 02:00 Alkaline Phosphatase 114 U/L (34-104) H 06/13/22 02:00 Total Protein 7.1 gm/dl (6.0-8.3) 06/13/22 02:00 Albumin 3.8 gm/dl (3.4-5.0) 06/13/22 02:00 Globulin 3.3 gm/dl (2.5-4.0) 06/13/22 02:00 Albumin/Globulin Ratio 1.2 (0.9-2) 06/13/22 02:00 SARS-CoV-2, RNA, NAAT NEGATIVE (NEGATIVE) 06/13/22 02:05 Code Status & VTE Plan Code Status Full code VTE Prophylaxis Plan VTE Prophylaxis will be ordered: Yes (1) Angioedema Encounter type: initial encounter Qualified Code(s): T78.3XXA - Angioneurotic edema, initial encounter (2) Trouble swallowing Dysphagia type: unspecified Qualified Code(s): R13.10 - Dysphagia, unspecified
[2022-06-13 03:15] LABS: Albumin Globulin Ratio 1.2 (0.9-2); Albumin Level 3.8 gm/dl (3.4-5.0); BUN Creatinine Ratio 14.1 (10-20); Bilirubin,Total 0.4 mg/dl (0.2-1.0); Calcium 8.9 mg/dl (8.5-10.1); Creatinine Clr Calc Pharmacy 158.4 ml/min; Est GFR (African American) 125.5 ml/min; Est GFR (Non-African American) 108.3 ml/min; Globulin 3.3 gm/dl (2.5-4.0); Potassium 4.3 mmol/L (3.5-5.1); Total Protein 7.1 gm/dl (6.0-8.3)
[2022-06-13] MEDS ORDERED: SODIUM CHLORIDE 0.9% 1000ML 1,000 ML IV ONE (03:16)
[2022-06-13] MEDS ORDERED: GLUCOSE 10 TAB/TUBE PO PRN (04:12)
[2022-06-13] MEDS ORDERED: CARBOHYDRATES FOR HYPOGLYCEMIA PO PRN (04:12)
[2022-06-13] MEDS ORDERED: GLUCAGON FOR INJ 1 MG VIAL SQ PRN (04:12)
[2022-06-13] MEDS ORDERED: DEXTROSE 50% 50 ML SYRINGE IV PRN (04:12)
[2022-06-13] MEDS ORDERED: GLUCOSE 40% GEL 15 GM TUBE PO PRN (04:12)
--- NOTE | 2022-06-13 04:14 | Billing Data ---
Date of Service June 13, 2022 Coding Level of Care Code 43598 Initial Inpt Care Lvl 3
[2022-06-13] MEDS ORDERED: ONDANSETRON INJ 2 MG/ML 2 ML VIAL IV PRN (04:21)
[2022-06-13] MEDS ORDERED: NSS + 20MEQ KCL 20 MEQ/1,000 ML BAG IV SCH (04:21)
[2022-06-13] MEDS: INSULIN ASPART PER UNIT SC SCH ×2 (05:18→13:17)
[2022-06-13] MEDS: diphenhydrAMINE 50 MG/ML VIAL IV SCH ×3 (05:19→15:03)
[2022-06-13 06:22] LABS: Hematocrit (blood only) 49.1 % (40.1-51.0); Hemoglobin 16.6 g/dl (14.0-18.0); Mean Corpuscular Hemoglobin 30.8 pg (25.0-34.0); Mean Corpuscular Hgb Conc 33.8 g/dL (32.0-36.0); Mean Corpuscular Volume 91.1 fL (80.0-100.0); Mean Platelet Volume 11.6 fL (9.4-12.4); Platelet Count 241 K/uL (130-400); RDW Coefficient of Variation 12.7 % (11.5-14.5); RDW Standard Deviation 41.8 fL (36.4-46.3); Red Blood Count 5.39 M/uL (4.63-6.08); White Blood Count 12.24 K/ul (4.8-10.8)
[2022-06-13 06:47] LABS: Basophils # (auto) 0.06 K/uL (0-0.2); Basophils % (auto) 0.5 %; Eosinophils # (auto) 0.02 K/uL (0-0.50); Eosinophils % (auto) 0.2 %; Immature Granulocytes # (auto) 0.06 K/uL (0.00-0.02); Immature Granulocytes % (auto) 0.5 %; Lymphocytes # (auto) 0.81 K/uL (1.2-3.4); Lymphocytes % (auto) 6.6 %; Monocytes # (auto) 0.24 K/uL (0.24-0.82); Neutrophils # (auto) 11.05 K/uL (1.4-6.5); Neutrophils % (auto) 90.2 %
[2022-06-13 07:34] LABS: Estimated Average Glucose 321 mg/dl; Hemoglobin A1C 12.8 % (4.5-5.6)
[2022-06-13 07:50] LABS: Alanine Aminotransferase 57 U/L (7-52); BUN Creatinine Ratio 16.7 (10-20); Bilirubin,Total 0.4 mg/dl (0.2-1.0); Blood Urea Nitrogen 12 mg/dl (6-23); Calcium 8.9 mg/dl (8.5-10.1); Carbon Dioxide 27 mmol/L (21-32); Chloride 99 mmol/L (98-107); Creatinine Clr Calc Pharmacy 171.6 ml/min; Est GFR (African American) 129.7 ml/min; Est GFR (Non-African American) 111.9 ml/min; Glucose 482 mg/dl (70-99(Fasting)); Total Protein 7.5 gm/dl (6.0-8.3)
[2022-06-13] MEDS: dexAMETHasone 6 MG in SYRINGE 0 ML IV SCH ×2 (08:46→15:03)
[2022-06-13] MEDS ORDERED: FAMOTIDINE 20 MG in SYRINGE 3 ML IV SCH (09:00)
[2022-06-13] MEDS ORDERED: INSULIN HUMAN REGULAR PER UNIT 10 UNITS in SYRINGE 9.9 ML IV STA (10:40)
[2022-06-13] MEDS ORDERED: LANTUS PER UNIT CHARGE SQ SCH ×2 (10:45→21:00)
[2022-06-13] MEDS ORDERED: NovoLIN-R INSULIN PER UNIT CHARGE ONE (11:26)
--- NOTE | 2022-06-13 20:19 | Discharge Summary ---
Date of Service June 13, 2022 Admission HPI Per Admitting Provider The patient is a 47-year-old male with a past medical history including angioedema, tobacco abuse, hyperglycemia, hypertension, morbid obesity, hypothyroidism, GERD, and kidney stones. The patient presents acutely to the emergency department with swollen tongue, with unknown precipitating factor this evening. He reports being on his usual diet,, not on any current antibiotics, but does continue to smoke. In the emergency department he received the following: Dexamethasone 10 mg IV, famotidine 20 mg IV and Benadryl 50 mg IV. His most recent hospitalization for similar symptoms was from 04/30-05/01/2022. He reports no episodes since that time until today. He reports a pending appointment with Allergy in about 1 month Principal Diagnosis Angioedema Hyperglycemia Discharge Exam Initial exam with no tongue swelling, lungs clear to auscultation bilaterally, no lip swelling, uvula midline, no airway obstruction, no hives. Heart rate regular. Patient left AMA prior to final discharge examination reassessment Discharge Data Allergies Allergy/AdvReac Type Severity Reaction Status Date / Time codeine Allergy Severe RASH Verified 05/05/21 18:38 hydroxyamphetamine Allergy Severe Swelling Verified 05/12/21 06:57 [From Paremyd] of Lip/Tongue/Throat lisinopril Allergy Severe Swelling Verified 05/12/21 06:56 of Lip/Tongue/Throat tramadol Allergy Severe RASH Verified 01/06/18 22:14 tropicamide [From Paremyd] Allergy Severe Swelling Verified 05/12/21 06:57 of Lip/Tongue/Throat Consultations 06/13/22 02:27 ED Decision to Admit Stat Hospital Course (1) Tongue swelling: Patient is a 47-year-old male with a past history of recurrent angioedema without urticaria with unclear symptoms. Patient was admitted for recurrent episode, has been on cetirizine twice daily at home. At time of provider assessment patient had had resolved angioedema, montelukast was prescribed given recurrent episodes despite on twice daily antihistamine. But had hyperglycemia greater than 500. Did receive IV insulin, this is likely precipitated by steroid treatment but review of A1c shows an A1c greater than 12 suggesting poor control even prior to this episode. This was reviewed with patient who notes that he has talked about insulin several times with his provider but had not yet initiated this. Given need for steroid taper, severely poorly controlled DM, and recent hyperglycemia was recommended to add basal insulin to his regimen. Discussed that medically recommended to stay for treatment and observation until his BSG was at least under 200. Patient received basal insulin, scale insulin, in addition to a single dose of IV insulin with an additional pending repeat. Patient had not yet had adequate glycemic control, did discuss that goal was to control glucose and then discharge patient to home which may be 06/13, but may take until 06/14 depending on how his blood sugars responded. Patient was unwilling to stay for further observation/treatment, and left AMA prior to final reviewed discharge for further discussion by provider patient did leave AMA, however medications including basal insulin had been discussed with patient prior to this and called into the pharmacy. Risk of hypoglycemia had been discussed prior to patient leaving AMA, and a glucagon injector had been called and although details for this were not discussed with patient prior to leaving AMA. Patient does have both endocrine and allergy referrals in place in addition to PCP follow-up (2) Hypertension: (3) Hyperglycemia: (4) Morbid obesity with BMI of 40.0-44.9, adult: (5) Hypothyroidism: (6) GERD (gastroesophageal reflux disease): Total Time Total Time Spent Total Time Spent (In Minutes): Time spend day of discharge 45 minutes including direct patient care, docume ntation, review of labs and images, and coordination of care. Discharge Plan Discharge Items Patient Disposition: Against Medical Advice Reason For Visit: ANGIOEDEMA Discharge Diagnosis: Recurrent angioedema Condition on Discharge: Good Activity: Resume your previous activity Non-emergency contact: Primary Care Provider and Specialist Call non-emergency contact if: you have any medication questions and your symptoms worsen Follow-up/Referrals: Star Landry MD [Physician] - Scar Faustin DO [Primary Care Provider] - Diet: Regular Addtl Attending Provider Instructions: You were seen in the hospital for an episode of recurrent angioedema, lip/tongue swelling, without clearly identified cause. You use your epinephrine autoinjector with symptomatic improvement. You were admitted to the hospital and received dexamethasone, a long-acting steroid, and Benadryl with famotidine, antihistamine medications. He clinically improved and had returned to normal on reassessment at around 10:00 the following morning. Rare/benefits of continued observation versus return home were discussed, you preferred discharge with return home. If you develop any recurrent symptoms, tongue swelling, shortness of breath, difficulty breathing please return to the emergency department immediately. A refill has been sent to the pharmacy for your epinephrine autoinjector. Please continue to take cetirizine 10 mg by mouth twice daily. This is a antihistamine that can help prevent recurrences of angioedema. Due to your recurrent episode while on cetirizine, you have been prescribed an additional medication, montelukast a antiallergy medicine called a leukotrienes receptor agonist. Please take montelukast 10 mg in the evening before bed. Your blood sugar was very high during admission. This is likely worsened due to steroid treatment, however your A1c was 12.6% representing extremely poor glucose control putting you at high risk of heart attacks, strokes, diabetic retinopathy, kidney damage, and nerve damage. It is important to try to get an A1c less than 7%. You have been prescribed a long-acting insulin, Lantus which can be used once daily. Please take Lantus 15 units once daily in addition to your metformin/glipizide. A refill of One Touch delicate lancets have been sent to the pharmacy, please check your blood sugar in the morning and 1 additional time throughout the day, and anytime you feel lightheaded/dizzy or overrated blood sugar might be low. The risk of using insulin is low blood sugar if too much is used, low blood sugar can be life-threatening and cause seizures or loss of consciousness. If you feel lightheaded, dizzy, sweaty please check your blood sugar and if it is below 80 drink a small amount of orange juice. You have been prescribed a glucagon autoinjector which can be used by family member if your blood sugar were to become so low that you lose consciousness. A follow-up appointment with an senior informatica developer and your PCP is being made. You have a follow-up appointment scheduled with allergy and immunology, please keep this appointment for allergy testing. A follow-up appointment with your primary care provider for routine follow-up is being scheduled for you, if you do not receive a call within the next 48 hours regarding a primary care appointment please contact his office at the number above. If you develop any new or worsening symptoms including fever, chills, sweats, chest pain, chest pressure, difficulty breathing, uncontrolled nausea/vomiting, rash, wheezing, passing out or nearly passing out, bleeding, black/bloody bowel movements, or other new or concerning symptoms please call 911 for re-evaluation in the emergency department if you are very concerned. Pending Studies at Discharge: No Stand-Alone Forms: My [facility] Spontaneously, Smoking Cessation Medications and DC Order Prescriptions: New montelukast 10 mg tablet 10 mg PO HS Qty: 30 2RF insulin glargine [Lantus Solostar U-100 Insulin] 100 unit/mL (3 mL) insulin pen 15 unit subcut DAILY Qty: 15 0RF prednisone 10 mg tablet See Rx Instructions PO .COMPLEX Qty: 20 0RF Rx Instructions: 40mg daily x2 days, then 30mg daily x2 days, then 20mg daily x2 days, then 10mg daily x2 days (DME) lancets 30 gauge misc See Rx Instructions .Route Qty: 100 2RF Rx Instructions: As directed glucagon 1 mg/0.2 mL auto-injector 1 mg subcut ONCE Qty: 0.4 0RF Rx Instructions: If needed for severe hypoglycemia (<70) Continued cetirizine [All Day Allergy (cetirizine)] 10 mg tablet 10 mg PO BID Qty: 60 0RF metformin 1,000 mg tablet 1,000 mg PO AMPM aspirin 81 mg Tablet,Delayed Release (Dr/Ec) 81 mg PO QAM pantoprazole 40 mg tablet,delayed release (DR/EC) 40 mg PO HS levothyroxine 25 mcg tablet 25 mcg PO DAILY alprazolam 1 mg tablet 1 mg PO HS Discontinued prednisone 10 mg tablet See Rx Instructions .ROUTE .COMPLEX Qty: 11 0RF Rx Instructions: Please see discharge instructions for tapering schedule. clindamycin HCl 150 mg capsule 450 mg PO TID Qty: 45 0RF No Action glipizide 5 mg tablet 6 mg PO DAILY Admission Data Admit Date/Time: 06/13/22 02:40 Attending Provider: Devendra Dowling Admit Provider: Ramu Ring Primary Care Provider: Scar Faustin Other Providers: Ramu Ring Coding Level of Care Code D/C DAY MANAGEMENT >30 MINS Diagnoses Tongue swelling R22.0 Hypertension I10 Hyperglycemia R73.9 Morbid obesity with BMI of 40.0-44.9, adult E66.01; Z68.41 Hypothyroidism E03.9 GERD (gastroesophageal reflux disease) K21.9
== END 2022-06-13 16:33 | disposition left against medical advice (07) ==
LOC: ED 01:52 → EDINP 02:40 → SUATTDRO 02:40 → INTOOBSV 02:40 → EDINP 16:33

== ENCOUNTER 2025-05-04 23:18 | Inpatient (IN) ==
[2025-05-04] MEDS ORDERED: VANCOMYCIN CONSULT ACTIVE PRN (23:34)
--- NOTE | 2025-05-04 23:39 | Emergency Department Note ---
History of Present Illness General Chief complaint: Testicular Pain Stated complaint: ABSECE ON RT TESTICULE Time Seen by Provider: 05/04/25 23:24 History of Present Illness Maximum Pain Intensity: 7 This 50-year-old type II diabetic presents to the ER complaining of scrotal infection. Patient states 9 years ago had a similar episode that needed to be drained. He states his right-sided scrotum is painful and swollen and is draining. He thinks it may be from an ingrown hair. Patient denies fevers, abdominal pain, vomiting or any other medical complaints. Home Medications Medication Instructions Recorded Confirmed Type alprazolam 1 mg tablet 1 mg PO TID 05/05/21 05/05/25 History aspirin 81 mg tablet,delayed 81 mg PO QAM 05/05/21 05/05/25 History release metformin 1,000 mg tablet 1,000 mg PO AMPM 05/05/21 05/05/25 History pantoprazole 40 mg tablet,delayed 40 mg PO HS 05/05/21 05/05/25 History release glipizide 5 mg tablet 5 mg PO DAILY 06/13/22 05/05/25 History lancets 30 gauge #100 ea 06/13/22 11/04/23 Rx montelukast 10 mg tablet 10 mg PO HS #30 tabs 06/13/22 05/05/25 Rx dulaglutide 1.5 mg/0.5 mL 1.5 mg subcut WK 01/11/23 05/05/25 History subcutaneous pen injector (Trulicity) insulin glargine 100 unit/mL (3 38 unit subcut HS 01/11/23 05/05/25 History mL) subcutaneous pen (Lantus Solostar U-100 Insulin) metoprolol tartrate 25 mg tablet 25 mg PO BID 01/11/23 05/05/25 History Allergies Allergy/AdvReac Type Severity Reaction Status Date / Time codeine Allergy Severe RASH Verified 05/04/25 23:49 hydroxyamphetamine Allergy Severe Swelling Verified 05/04/25 23:49 [From Paremyd] of Lip/Tongue/Throat lisinopril Allergy Severe Swelling Verified 05/04/25 23:49 of Lip/Tongue/Throat tramadol Allergy Severe RASH Verified 05/04/25 23:49 tropicamide [From Paremyd] Allergy Severe Swelling Verified 05/04/25 23:49 of Lip/Tongue/Throat Past Med/Surg History Problem List (Updated 05/05/25 @ 01:25 by Yari Ritter PA-C) Cellulitis of scrotum (Acute) Scrotal abscess Ureterolithiasis T2DM (type 2 diabetes mellitus) Angio-edema (Acute) Leukocytosis (Acute) Hyperglycemia Hypertension Tongue swelling Morbid obesity with BMI of 40.0-44.9, adult Hypothyroidism GERD (gastroesophageal reflux disease) (Acute) Kidney stone (Acute) Right shoulder pain (Acute) Pain, dental (Acute) Kidney stone (Acute) Pain, dental (Acute) Flank pain (Acute) Kidney stone (Acute) Left flank pain (Acute) Left flank pain (Acute) Sepsis Medical History Acute hyperglycemia Angioedema Trouble swallowing Tongue swelling Tobacco abuse counseling Diabetes HTN (hypertension) Angioedema Anxiety Surgical History No pertinent past surgical history Social History Smoking Status: Current every day smoker Tobacco Type: Cigarettes Cigarettes Per Day: 20; Second Hand Exposure: Yes; Do You Dip or Chew Tobacco: No; Hx Alcohol Use: Yes Hx Substance Use: No Preferred Language: [place] Communication Ability: Effective Ammunition Officer Required: No Beliefs That Will Affect Care: None Current Living Situation: Family Current Living Situation Comment: Girlfriend and 3 children Feels Safe at Home: Yes Assistive Devices: Glasses Review of Systems A total of 10 systems reviewed and were otherwise negative Physical Exam Vital Signs Vital Signs - 24 hr 05/04/25 23:23 05/05/25 00:25 05/05/25 00:30 Temperature 36.6 C Temperature Source Temporal Artery Scan Pulse Rate 110 H 101 H 100 H Pulse Rate [Apical] Respiratory Rate 16 22 Respiratory Effort / Characteristics Non-Labored Respiratory Depth Normal Blood Pressure 173/107 H 148/102 H Blood Pressure [Right Arm] Blood Pressure Mean 129 117 Blood Pressure Mean [Right Arm] Pulse Oximetry 96 94 Oxygen Delivery Method Room Air Room Air Sepsis Recent Fever Within 48 Hours No Sepsis New/Unexplained Change in Mental Status No Sepsis Action Taken by Nursing No Action Required 05/05/25 02:13 05/05/25 02:15 05/05/25 02:18 Temperature 36.8 C Temperature Source Oral Pulse Rate 82 91 H Pulse Rate [Apical] 92 H Respiratory Rate 20 20 20 Respiratory Effort / Characteristics Respiratory Depth Blood Pressure 186/101 H 177/103 H Blood Pressure [Right Arm] 155/101 H Blood Pressure Mean 127 122 Blood Pressure Mean [Right Arm] 119 Pulse Oximetry 93 93 94 Oxygen Delivery Method Room Air Room Air Room Air Sepsis Recent Fever Within 48 Hours Sepsis New/Unexplained Change in Mental Status Sepsis Action Taken by Nursing VITALS: Vitals are noted on the nurse's note and reviewed by myself. Vital signs stable. GENERAL: Pleasant male with nurse Gisselle present for the conservation coordinator, in no acute distress, nondiaphoretic, well-developed well-nourished. SKIN: Capillary reflex less than 2 seconds. HEENT: Normocephalic. PERRLA. EOMI. Nares patent. Mucous membranes moist. Neck is supple without nuchal rigidity. HEART: Regular rate and rhythm LUNGS: Clear to auscultation bilaterally without wheezes, rales or rhonchi. No retractions or accessory muscle use. ABDOMEN: Positive bowel sounds x 4. Normal tympanic percussion. Soft, nontender, without masses or organomegaly. Gonzalez sign negative. No guarding or rebound tenderness. no CVA tenderness exam: Right side of scrotum erythematous and edematous draining and culture was taken and sent. Right inguinal lymph nodes tender to palpation. Left-sided scrotum normal. No crepitus. MUSCULOSKELETAL: No gross musculoskeletal defects. NEURO: Patient was alert and oriented to person place and time. No focal neurological deficits. Course Administered Medications Vancomycin HCl 2,500 mg/ (Sodium Chloride) 550 mls @ 180 mls/hr IV NOW ONE Stop: 05/05/25 02:37 Last Admin: 05/05/25 00:53 Dose: 180 mls/hr Documented By: MARY Lactated Ringer's (Lr) 1,000 mls @ 125 mls/hr IV .Q8H NELLI Stop: 05/08/25 02:14 Last Admin: 05/05/25 02:19 Dose: 125 mls/hr Documented By: MARY Discontinued Medications Piperacillin Sod/Tazobactam Sod (Zosyn) 4.5 gm in 100 mls @ 200 mls/hr IV NOW ONE; Protocol Stop: 05/04/25 23:58 Last Infusion: 05/05/25 00:26 Dose: Infused Documented By: Admin: 05/04/25 23:56 Dose: 200 mls/hr Documented By: MARY Clindamycin Phosphate (Cleocin/D5w) 900 mg in 50 mls @ 100 mls/hr IV NOW ONE Stop: 05/05/25 00:03 Last Infusion: 05/05/25 00:44 Dose: Infused Documented By: Admin: 05/05/25 00:14 Dose: 100 mls/hr Documented By: MARY Sodium Chloride (Nss) 1,000 mls @ 999 mls/hr IV .Q1H1M ONE Stop: 05/05/25 00:35 Last Infusion: 05/05/25 02:20 Dose: Infused Documented By: Admin: 05/04/25 23:48 Dose: 999 mls/hr Documented By: MARY Sodium Chloride (Nss) 1,000 mls @ 999 mls/hr IV .Q1H1M ONE Stop: 05/05/25 01:17 Last Infusion: 05/05/25 02:20 Dose: Infused Documented By: Admin: 05/05/25 00:20 Dose: 999 mls/hr Documented By: MARY Ioversol (Optiray 320 100ml) 100 ml IV ONCE ONE Stop: 05/05/25 00:50 Last Admin: 05/05/25 00:49 Dose: 93 ml Documented By: CRYSTAL Metoprolol Tartrate (Metoprolol Tartrate 25 Mg Tab) 25 mg PO NOW STA Stop: 05/05/25 02:02 Last Admin: 05/05/25 02:19 Dose: 25 mg Documented By: MARY Medical Decision Making Medical Records Attestation: I reviewed the patient's medical records. Home Medications Current Medication List: was personally reviewed by me Laboratory Data Attestation: I reviewed the patient's lab results. 05/04/25 23:36 05/04/25 23:36 Lab Results 05/04/25 05/04/25 05/05/25 Range/Units 23:36 23:56 00:29 WBC 14.57 H (4.8-10.8) K/ul RBC 5.66 (4.70-6.10) M/uL Hgb 17.4 (14.0-18.0) g/dL Hct 50.1 (42.0-52.0) % MCV 88.5 (80.0-100.0) fL MCH 30.7 (25.0-34.0) pg MCHC 34.7 (32.0-36.0) g/dL RDW Std Deviation 41.4 (36.4-46.3) fL RDW Coeff of Octavia 12.7 (11.5-14.5) % Plt Count 255 (130-400) K/uL MPV 11.2 (9.4-12.4) fL Immature Gran % (Auto) 0.5 % Neut % (Auto) 67.4 % Lymph % (Auto) 21.9 % [place] % (Auto) 8.3 % Eos % (Auto) 1.2 % Baso % (Auto) 0.7 % Neut # (Auto) 9.82 H (1.40-6.50) K/uL Lymph # (Auto) 3.19 (1.20-3.40) K/uL [place] # (Auto) 1.21 H (0.11-0.59) K/uL Eos # (Auto) 0.17 (0.00-0.50) K/uL Baso # (Auto) 0.10 (0.00-0.20) K/uL Immature Gran # (Auto) 0.08 (0.01-0.20) K/uL VBG pH 7.40 (7.36-7.41) VBG pCO2 39 (38-50) mmHg VBG pO2 65 mmHg VBG HCO3 24 mmol/L VBG O2 Saturation 93.8 % VBG Base Excess -0.5 mEq/L Sodium 131 L (136-145) mmol/L Potassium TNP Cancelled Chloride 93 L (98-107) mmol/L Carbon Dioxide 26 (21-32) mmol/L Anion Gap 12 H (3-11) BUN 14 (6-23) mg/dl Creatinine 0.82 (0.6-1.4) mg/dl Est Cr Clr Drug Dosing 141.6 ml/min eGFR 107.68 BUN/Creatinine Ratio 17.1 (10-20) Glucose 385 H* (70-99(Fasting)) mg/dl POC Glucose (70-99) mg/dl Lactate 1.4 (0.4-2.0) mmol/L Calcium 9.7 (8.6-10.3) mg/dl Total Bilirubin 0.4 (0.2-1.0) mg/dl AST TNP Cancelled ALT 32 (7-52) U/L Alkaline Phosphatase 126 H (34-104) U/L Total Creatine Kinase 95 (30-223) U/L Total Protein 8.0 (6.0-8.3) gm/dl Albumin 4.1 (3.4-5.0) gm/dl Globulin 3.9 (2.5-4.0) gm/dl Albumin/Globulin Ratio 1.1 (0.9-2) 05/05/25 Range/Units 02:16 WBC (4.8-10.8) K/ul RBC (4.70-6.10) M/uL Hgb (14.0-18.0) g/dL Hct (42.0-52.0) % MCV (80.0-100.0) fL MCH (25.0-34.0) pg MCHC (32.0-36.0) g/dL RDW Std Deviation (36.4-46.3) fL RDW Coeff of Octavia (11.5-14.5) % Plt Count (130-400) K/uL MPV (9.4-12.4) fL Immature Gran % (Auto) % Neut % (Auto) % Lymph % (Auto) % [place] % (Auto) % Eos % (Auto) % Baso % (Auto) % Neut # (Auto) (1.40-6.50) K/uL Lymph # (Auto) (1.20-3.40) K/uL [place] # (Auto) (0.11-0.59) K/uL Eos # (Auto) (0.00-0.50) K/uL Baso # (Auto) (0.00-0.20) K/uL Immature Gran # (Auto) (0.01-0.20) K/uL VBG pH (7.36-7.41) VBG pCO2 (38-50) mmHg VBG pO2 mmHg VBG HCO3 mmol/L VBG O2 Saturation % VBG Base Excess mEq/L Sodium (136-145) mmol/L Potassium Chloride (98-107) mmol/L Carbon Dioxide (21-32) mmol/L Anion Gap (3-11) BUN (6-23) mg/dl Creatinine (0.6-1.4) mg/dl Est Cr Clr Drug Dosing ml/min eGFR BUN/Creatinine Ratio (10-20) Glucose (70-99(Fasting)) mg/dl POC Glucose 307 H* (70-99) mg/dl Lactate (0.4-2.0) mmol/L Calcium (8.6-10.3) mg/dl Total Bilirubin (0.2-1.0) mg/dl AST ALT (7-52) U/L Alkaline Phosphatase (34-104) U/L Total Creatine Kinase (30-223) U/L Total Protein (6.0-8.3) gm/dl Albumin (3.4-5.0) gm/dl Globulin (2.5-4.0) gm/dl Albumin/Globulin Ratio (0.9-2) Imaging Data Attestation: I personally reviewed and interpreted this imaging study as follows: Radiologist's Impression: Abdomen/Pelvis CT 05/04/25 23:34 EXAM: CT abd pelvis IV con only CLINICAL HISTORY: scrotal infx, ? FG TECHNIQUE: Multiple contiguous axial images were obtained from the level of diaphragm to the pubis symphysis. This study was acquired after the IV administration of iodinated contrast material, given the patient's indications for the examination. If IV contrast material had not been administered, the likelihood of detecting abnormalities relevant to the patient's condition would have been substantially decreased. Coronal and sagittal reformatted images were generated and reviewed to improve anatomic localization and optimize lesion detection. CT scan was performed according to ALARA (as low as reasonably achievable). 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 ABDOMEN/PELVIS: The liver is enlarged in size, measuring 16cm in craniocaudal dimension and shows diffuse parenchynal mild hypoenhancement. No focal liver lesions are seen. There is no intra or extrahepatic biliary ductal dilatation. Hepatic vasculature is patent. The gallbladder is unremarkable. The spleen, pancreas, and adrenal glands are unremarkable. The kidneys are normal in size and attenuation. There is no hydronephrosis or perinephric fat stranding. No renal calculi or renal masses are identified. The ureters are normal in caliber and no ureteral calculi are seen. The bladder is normal in contour. Prostate is unremarkable. No evidence of focal or diffuse bowel wall thickening or evidence of bowel obstruction is seen. No features of inflamed appendix No adenopathy or fluid collections are seen. The aorta is normal in caliber. No aggressive appearing osseous lesions are identified. Mild posterior scrotal wall edema. IMPRESSION: 1. Stable mild hepatomegaly with interval development of hepatic steatosis. 2. Possible mild posterior scrotal wall edema. 3. Interval resolution of left distal ureter calculus with hydroureteronephrosis. Electronically signed by Jace Soliz 05-05-2025 02:26 AM MDM Narrative Prior records reviewed and summarized as above. Triage Nursing notes reviewed. Additional history obtained from nursing. The patient's history was concerning for swelling and redness of the scrotum. Differential diagnosis: Etiologies such as cellulitis, abscess, Andrew gangrene, MRSA infection, DVT, necrotizing fasciitis, dermatitis, drug eruption, as well as others were entertained.. Physical examination: The physical examination was consistent with cellulitis ER treatment provided: Zosyn, clinda, vancomycin was ordered Wound culture taken and sent On reassessment the patient felt better. Diagnostics interpreted by me: The labs Independently Interpreted by myself revealed leukocytosis, hyperglycemia Wound culture pending Blood cultures pending Imaging studies: Imaging was reviewed and read by radiology Consultation: A consultation was placed with the hospitalist. The case was discussed and diagnostics were reviewed. The patient was evaluated in the ER for further treatment. Consultation was placed with urology and the case was discussed. Patient was evaluated by MERLE Naik. This appears to be scrotal cellulitis with possible developing abscess. Culture was taken and sent. Urology did evaluate the patient. They recommend medical admission. Patient was started on broad-spectrum antibiotics and medicine was consulted. Patient was admitted to the medical service. Patient is agreeable. No signs of Andrew's gangrene. He was afebrile nontoxic. No DKA. Negative lactic. By the evaluation outlined above emergent etiologies such as necrotizing fasciitis, DVT, as well as others were deemed relatively unlikely. The pt informed about the findings as listed above. All questions were answered and pleased with the treatment. The chart was completed utilizing IID recognition software. Grammatical errors, random word insertions, pronoun errors, and incomplete sentences are an occassional consequence of this system due to software limitations, ambient noise, and hardware issues. Any formal questions or concerns about the content, text, or information contained within the body of this dictation should be directly addressed to the physician dental office assistant for clarification. Impression & Plan Cellulitis of scrotum Discharge Plan Visit Data Chief Complaint: Testicular Pain Stated Complaint: ABSECE ON RT TESTICULE ED Provider: Jameel Coelho ED Midlevel Provider: Yari Ritter Discharge Problem: Cellulitis of scrotum Patient Disposition: Admitted As Inpatient Condition: Good Discharge Instructions Interventions: ED Discharge Assessment Last Done: 05/05/25 02:32 Forms Stand Alone Forms: [facility] [place] [employer] Prescriptions Prescriptions: No Action metformin 1,000 mg tablet 1,000 mg PO AMPM aspirin 81 mg Tablet,Delayed Release (Dr/Ec) 81 mg PO QAM pantoprazole 40 mg tablet,delayed release (DR/EC) 40 mg PO HS alprazolam 1 mg tablet 1 mg PO TID montelukast 10 mg tablet 10 mg PO HS Qty: 30 2RF (DME) lancets 30 gauge misc See Rx Instructions .Route Qty: 100 2RF Rx Instructions: As directed glipizide 5 mg tablet 5 mg PO DAILY metoprolol tartrate 25 mg tablet 25 mg PO BID Trulicity 1.5 mg/0.5 mL Pen Injector 1.5 mg SUBCUT WK Rx Instructions: SUNDAYS insulin glargine [Lantus Solostar U-100 Insulin] 100 unit/mL (3 mL) insulin pen 38 unit subcut HS Referrals Referrals: Scar Faustin DO [Primary Care Provider] -
[2025-05-04] MEDS: SODIUM CHLORIDE 0.9% 1,000 ML IV ONE (23:48)
[2025-05-04 23:52] LABS: Hematocrit (blood only) 50.1 % (42.0-52.0); Hemoglobin 17.4 g/dL (14.0-18.0); Immature Granulocytes # (auto) 0.08 K/uL (0.01-0.20); Immature Granulocytes % (auto) 0.5 %; Mean Corpuscular Hemoglobin 30.7 pg (25.0-34.0); Mean Corpuscular Volume 88.5 fL (80.0-100.0); Platelet Count 255 K/uL (130-400); RDW Standard Deviation 41.4 fL (36.4-46.3); Red Blood Count 5.66 M/uL (4.70-6.10); White Blood Count 14.57 K/ul (4.8-10.8)
[2025-05-04] MEDS: PIPERACILLIN/TAZOBACTAM 4.5 GM/100 ML BAG IV ONE (23:56)
--- NOTE | 2025-05-04 23:57 | Urology Consultation ---
Date of Consultation May 04, 2025 Assessment & Plan (1) Scrotal abscess: I discussed with the treating clinician emergency department patient is being admitted on the hospitalist service. Urologic recommendations are as follows: It appears as though the patient has a scrotal cellulitis without large abscess; his physical exam is not consistent with Andrew's gangrene The treating clinician emergency department has initiated broad-spectrum antibiotics in the form of clindamycin, Zosyn, and vancomycin and he should continue for the present time Tight control of the patient's diabetes will help optimize treating this infection as well as healing At the time of my interview the patient was noted to be nontoxic-appearinghe is normotensive without fever. He was noted to be tachycardic however and did exhibit leukocytosis with a white blood cell count of 14,000 Will keep the patient n.p.o. for the present time The patient will be evaluated by urology team on 05/05/2025lthough there does not appear to be any large abscess on available imaging there is some purulent fluid draining and a determination will be made a wider incision and drainage will need to be performed to facilitate further drainage Additional recommendations to be forthcoming based on his clinical course as it unfolds Plan Attending note: Patient with scrotal abscess. Has had history of recurrent abscess. Has poorly controlled diabetes with hemoglobin A1c over 14 patient additionally has had issues with skin infections. Had spontaneous drainage while in the ER. Relieved small amount of the symptoms but was still having considerable pain and discomfort. Patient is going to be observed overnight with IV antibiotics and monitoring. CT imaging have been reviewed. On review it does appear the patient has likely cellulitis but no obvious signs of necrotizing fasciitis, air formation, severe fluid collection, or tissue necrosis. Did have possible area of fluid collection on scrotal ultrasound. These images were both reviewed interpreted by myself. Patient independently assessed, examined, interviewed, and evaluated. Agree with note as above. Patient's vitals and labs were all reviewed. Pertinent values in the HPI and plan section. Imaging was reviewed interpreted by myself. Agree with read. Vitals were reviewed. Discussed findings extensively with patient and family. Reviewed with nurse practitioner as well as consulting physicians/team. Patient's complicated medical and surgical history was reviewed and summarized above. Patient's surgical, medical, social, and family history were all reviewed with pertinent values as above. Discussed patient's current diagnosis as well as concerns and issues. Reviewed different options moving forward. Discussed potential risks and benefits as well as possible options and concerns. Reviewed potential surgical options and interventions. Discussed potential issues and concerns related to intervention. Risk and benefits were discussed extensively with patient and any available family. Discussed potential risks related to anesthesia. Discussed risks of bleeding infection and injury. Patient was agreeable for IV antibiotics and observation. Plan is to reassess with possible incision and drainage if fluctuant fluid cavity is discovered or if issues considerably worsen. Will plan to continue with supportive care. If needed can consider moving forward with I&D in the OR under anesthesia versus bedside. Patient is considering options. Patient complicated medical and surgical history was reviewed and surmise above all imaging was reviewed interpreted by myself all labs are reviewed including previous and most recent labs. All pertinent positive negatives in the HPI and plan section. Will plan to observe for now we will continue with IV antibiotics supportive care. Recommend continued assessment and monitoring with diabetic issues. Encourage patient for diabetic control. History of Present Illness Reason for Consultation: Scrotal abscess History of Present Illness This is a 50-year-old male who presented the emergency department secondary to testicular pain. Patient says approximately 2 days ago he felt as though he had a pimple developing on his right testicle. He notes that over the ensuing 2 days he felt like the area got larger and more swollen. He also notes that the area is painful when getting in and out of his truck. He denies any fevers, shakes, or chills. He denies any dysuria or hematuria. Patient notes that he has not had any drainage from the area until his current presentation in the emergency department at which time it was draining some purulent material. He denies any known injuries, cuts, or excoriations to this area. He notes that he is a diabetic and his sugars usually run between 180 and 230. Patient notes that he does work as a security system analyst and does not report prolonged sitting as part of his job. In addition the patient reports that he did have a testicular abscess approximately 9 years ago that was treated with a bedside incision and drainage. He notes that his most recent oral intake was at approximately 3:00 PM today. Labs and imaging include a CBC were white blood cell count was elevated 14.5. Hemoglobin and hematocrit as well as platelet count were normal.Patient had a CT scan of the abdomen pelvis performed. This showed the patient had some posterior scrotal wall edema. There did not appear to be any large fluid collections but no gas noted in the soft tissue. A scrotal ultrasound was also performed that showed findings consistent with right sided scrotal cellulitis with no drainable abscess noted. Chemistry profile showed sodium was 131 with a normal potassium. His BUN and creatinine were also normal. At the time of my interview he was resting comfortably in bed he was in no distress. Allergies Allergy/AdvReac Type Severity Reaction Status Date / Time codeine Allergy Severe RASH Verified 05/04/25 23:49 hydroxyamphetamine Allergy Severe Swelling Verified 05/04/25 23:49 [From [facility]] of Lip/Tongue/Throat lisinopril Allergy Severe Swelling Verified 05/04/25 23:49 of Lip/Tongue/Throat tramadol Allergy Severe RASH Verified 05/04/25 23:49 tropicamide [From Paremyd] Allergy Severe Swelling Verified 05/04/25 23:49 of Lip/Tongue/Throat Home Medications Medication Instructions Recorded Confirmed Type alprazolam 1 mg tablet 1 mg PO TID 05/05/21 05/05/25 History aspirin 81 mg tablet,delayed 81 mg PO QAM 05/05/21 05/05/25 History release metformin 1,000 mg tablet 1,000 mg PO AMPM 05/05/21 05/05/25 History pantoprazole 40 mg tablet,delayed 40 mg PO HS 05/05/21 05/05/25 History release glipizide 5 mg tablet 5 mg PO DAILY 06/13/22 05/05/25 History lancets 30 gauge #100 ea 06/13/22 11/04/23 Rx montelukast 10 mg tablet 10 mg PO HS #30 tabs 06/13/22 05/05/25 Rx dulaglutide 1.5 mg/0.5 mL 1.5 mg subcut WK 01/11/23 05/05/25 History subcutaneous pen injector (Trulicity) insulin glargine 100 unit/mL (3 38 unit subcut HS 01/11/23 05/05/25 History mL) subcutaneous pen (Lantus Solostar U-100 Insulin) metoprolol tartrate 25 mg tablet 25 mg PO BID 01/11/23 05/05/25 History Patient History Medical History Acute hyperglycemia Angioedema Trouble swallowing Tongue swelling Tobacco abuse counseling Diabetes HTN (hypertension) Angioedema Anxiety Surgical History No pertinent past surgical history Social History Smoking Status: Current every day smoker Tobacco Type: Cigarettes Cigarettes Per Day: 20; Second Hand Exposure: Yes; Do You Dip or Chew Tobacco: No; Hx Alcohol Use: No Hx Substance Use: No Preferred Language: Hungarian Communication Ability: Effective Lead C Developer Required: No Beliefs That Will Affect Care: None Current Living Situation: Family Feels Safe at Home: Yes Assistive Devices: CPAP and Glasses Review of Systems Review of Systems: All systems reviewed & are unremarkable except as noted in HPI & below Physical Exam Constitutional: WD/WN, vitals as above Eyes: no conjunctival abnormality ENMT: Ears: no hearing impairment and no external ear abnormality Mouth: no oropharynx abnormality Neck: trachea midline Respiratory: normal respiratory effort; no respiratory distress and no labored breathing Cardiovascular: Rate/Rhythm: regular rate and regular rhythm Gastrointestinal (Abdomen): Soft and nontender Musculoskeletal: No calf tenderness Skin: See below description Neurologic: moves all extremities Psychiatric: A+Ox3, euthymic affect Genitourinary: The patient's genital region was examined. Patient did have some tenderness in the groins bilaterally. Patient did have some erythema in his groins bilaterally consistent with intertrigo. Patient's scrotum was noted to be erythematous. There was a pinhole sized area on the right lateral testicle that was draining purulent drainage. There is no areas of eschar or necrosis in the perineum or scrotum. There is no crepitus in the soft tissue. Results & Data Vital Signs (Past 12 Hours) Vital Signs Temp Pulse Resp BP Pulse Ox O2 Del Method 05/04/25 23:23 36.6 C 110 H 16 173/107 H 96 Room Air PG Care Time/CCT Total # of Minutes Spent Total Time Spent with Patient: Total time spent is greater than 50% in coordination of care (as documented) at patient's floor/unit and/or counseling patient: Coding Level of Care Code 26334 IN/OBS CONSULT LVL 5,80M Diagnoses Scrotal abscess N49.2
[2025-05-05] MEDS: CLINDAMYCIN/D5W 900 MG/50 ML BAG IV ONE (00:14)
[2025-05-05 00:15] LABS: Alanine Aminotransferase 32 U/L (7-52); Albumin Globulin Ratio 1.1 (0.9-2); Albumin Level 4.1 gm/dl (3.4-5.0); Alkaline Phosphatase 126 U/L (34-104); Anion Gap 12 (3-11); Bilirubin,Total 0.4 mg/dl (0.2-1.0); Blood Urea Nitrogen 14 mg/dl (6-23); Calcium 9.7 mg/dl (8.6-10.3); Carbon Dioxide 26 mmol/L (21-32); Chloride 93 mmol/L (98-107); Creatine Kinase 95 U/L (30-223); Creatinine Clr Calc Pharmacy 141.6 ml/min; Globulin 3.9 gm/dl (2.5-4.0); Glucose 385 mg/dl (70-99(Fasting)); Sodium 131 mmol/L (136-145); Total Protein 8.0 gm/dl (6.0-8.3)
[2025-05-05] MEDS: SODIUM CHLORIDE 0.9% 1,000 ML IV ONE (00:20)
[2025-05-05 00:47] LABS: Base Excess VBG -0.5 mEq/L; HCO3 VBG 24 mmol/L; Oxygen Saturation VBG 93.8 %; PCO2 VBG 39 mmHg (38-50); PO2 VBG 65 mmHg; pH VBG 7.40 (7.36-7.41)
[2025-05-05] MEDS: OPTIRAY 320 100ml IV ONE (00:49)
[2025-05-05] MEDS: VANCOMYCIN HCL 2,500 MG in SODIUM CHLORIDE 0.9% 500 ML IV ONE (00:53)
--- NOTE | 2025-05-05 01:51 | History & Physical Report ---
Date of Service May 05, 2025 Assessment & Plan (1) Cellulitis of scrotum: (2) Scrotal abscess: (3) T2DM (type 2 diabetes mellitus): Plan Patient is a 50-year-old male past medical history including diabetes mellitus type 2 insulin requiring, angioedema, hypertension, morbid obesity, hypothyroidism, GERD, and kidney stones. He presents to the emergency department with concerns regarding right sided scrotal swelling that is painful and draining. It is similar episode 9 years ago that needed surgical drainage. He thinks it probably began from an ingrown hair. He denies any systemic symptoms of fevers, chills, nausea, vomiting, generalized myalgias or arthralgias. Workup in the emergency department included abnormal laboratories: WBC 14.57, hemoglobin 17.4, hematocrit 50.1, sodium 131, glucose 385. CT scan of abdomen and pelvis shows stable mild hepatomegaly with interval development of hepatic steatosis. Possible mild posterior scrotal wall edema. Interval resolution of the left distal ureteral calculus with hydroureteronephrosis. Patient was referred for admission to the [facility] with consult to urology, who saw the patient while in the ED. Cellulitis of scrotum/scrotal abscess- CT of abdomen pelvis suggest possible edema of scrotal wall Testicular ultrasound is pending From the ED received the following: Vancomycin IV, clindamycin IV and Zosyn IV Continue vancomycin IV and Zosyn IV Neurology has seen the patient in the ED, and plans to possibly take patient for I&D Follow blood cultures, follow wound culture and sensitivity N.p.o. except essential medications with sips of water Status post 2 L normal saline bolus in the ED LR at 125 mL/h Diabetes mellitus- Hold Trulicity, glipizide, and metformin. Glucose 385 on admission Patient did not take his glargine this evening for coverage Decrease glargine from 38 to 24 units subcu at bedtime Placed on Accu-Cheks with NovoLog SSI Perform Accu-Chek now, and give coverage at this point Hypertension- Patient did not take his evening metoprolol to tartrate, and will give his evening dose now GERD- Continue pantoprazole Anxiety- Continue alprazolam Allergy/angioedema history- Continue montelukast History of Present Illness Primary Care Provider: Scar Faustin DO Patient is a 50-year-old male past medical history including diabetes mellitus type 2 insulin requiring, angioedema, hypertension, morbid obesity, hypothyroidism, GERD, and kidney stones. He presents to the emergency department with concerns regarding right sided scrotal swelling that is painful and draining. It is similar episode 9 years ago that needed surgical drainage. He thinks it probably began from an ingrown hair. He denies any systemic symptoms of fevers, chills, nausea, vomiting, generalized myalgias or arthralgias. Workup in the emergency department included abnormal laboratories: WBC 14.57, hemoglobin 17.4, hematocrit 50.1, sodium 131, glucose 385. CT scan of abdomen and pelvis shows stable mild hepatomegaly with interval development of hepatic steatosis. Possible mild posterior scrotal wall edema. Interval resolution of the left distal ureteral calculus with hydroureteronephrosis. Patient was referred for admission to the [facility] with consult to urology, who saw the patient while in the ED. Allergies Allergy/AdvReac Type Severity Reaction Status Date / Time codeine Allergy Severe RASH Verified 05/04/25 23:49 hydroxyamphetamine Allergy Severe Swelling Verified 05/04/25 23:49 [From [facility]] of Lip/Tongue/Throat lisinopril Allergy Severe Swelling Verified 05/04/25 23:49 of Lip/Tongue/Throat tramadol Allergy Severe RASH Verified 05/04/25 23:49 tropicamide [From Paremyd] Allergy Severe Swelling Verified 05/04/25 23:49 of Lip/Tongue/Throat Home Medications Medication Instructions Recorded Confirmed Type alprazolam 1 mg tablet 1 mg PO TID 05/05/21 05/05/25 History aspirin 81 mg tablet,delayed 81 mg PO QAM 05/05/21 05/05/25 History release metformin 1,000 mg tablet 1,000 mg PO AMPM 05/05/21 05/05/25 History pantoprazole 40 mg tablet,delayed 40 mg PO HS 05/05/21 05/05/25 History release glipizide 5 mg tablet 5 mg PO DAILY 06/13/22 05/05/25 History lancets 30 gauge #100 ea 06/13/22 11/04/23 Rx montelukast 10 mg tablet 10 mg PO HS #30 tabs 06/13/22 05/05/25 Rx dulaglutide 1.5 mg/0.5 mL 1.5 mg subcut WK 01/11/23 05/05/25 History subcutaneous pen injector (Trulicity) insulin glargine 100 unit/mL (3 38 unit subcut HS 01/11/23 05/05/25 History mL) subcutaneous pen (Lantus Solostar U-100 Insulin) metoprolol tartrate 25 mg tablet 25 mg PO BID 01/11/23 05/05/25 History Past Med/Surg History Problem List (Updated 05/05/25 @ 01:25 by Yari Ritter PA-C) Cellulitis of scrotum (Acute) Scrotal abscess Ureterolithiasis T2DM (type 2 diabetes mellitus) Angio-edema (Acute) Leukocytosis (Acute) Hyperglycemia Hypertension Tongue swelling Morbid obesity with BMI of 40.0-44.9, adult Hypothyroidism GERD (gastroesophageal reflux disease) (Acute) Kidney stone (Acute) Right shoulder pain (Acute) Pain, dental (Acute) Kidney stone (Acute) Pain, dental (Acute) Flank pain (Acute) Kidney stone (Acute) Left flank pain (Acute) Left flank pain (Acute) Sepsis Medical History Acute hyperglycemia Angioedema Trouble swallowing Tongue swelling Tobacco abuse counseling Diabetes HTN (hypertension) Angioedema Anxiety Surgical History No pertinent past surgical history Social History Smoking Status: Current every day smoker Tobacco Type: Cigarettes Cigarettes Per Day: 20; Second Hand Exposure: Yes; Do You Dip or Chew Tobacco: No; Hx Alcohol Use: Yes Hx Substance Use: No Preferred Language: Hungarian Communication Ability: Effective Us Administrative Law Judge Required: No Beliefs That Will Affect Care: None Current Living Situation: Family Current Living Situation Comment: Girlfriend and 3 children Feels Safe at Home: Yes Assistive Devices: Glasses Review of Systems Review of Systems: The patient denies chest pain, palpitations, shortness of breath, dyspnea on exertion, cough, lower extremity swelling, sore throat, fevers, chills, nausea, vomiting, diarrhea , constipation, blood in urine or stool, dysuria, urinary frequency or urgency, lightheadedness, dizziness, headache, memory loss, loss of consciousness, imbalance, focal or generalized weakness, numbness or tingling in arms or legs, generalized arthralgias or myalgias, back or neck pain, or night sweats. The review of systems is otherwise negative other than for that already noted above, and at least 10 systems have been reviewed.- Physical Exam Physical Exam: The patient is awake, alert and oriented 3, well developed and well nourished, normocephalic and atraumatic, lying in bed and in no acute distress. HEENT--PERRL, EOMI, mucous membranes and oropharynx dry. Neck--supple. No JVD. No bruits. Thyroid normal, trachea midline, no adenopa thy. Heart--normal S1 and S2. No murmurs, rubs or gallops. Lungs--clear bilaterally, no respiratory distress, no accessory muscle use. Abdomen/pelvis--normal bowel sounds and soft. Right scrotum with erythema, tender and warm, with small with purulent drainage is noted. Area Extremities--no cyanosis or clubbing. No edema. There are good distal pulses b/l. Dermatologic--normal except for above Neurologic--cranial nerves II through XII grossly intact. Rheumatologic--normal range of motion. Psychiatric--normal affect. Results & Data Results & Data Vital Signs (Past 12 Hours) Vital Signs Temp Pulse Resp BP Pulse Ox O2 Del Method 05/05/25 00:30 100 H 22 148/102 H 94 Room Air 05/05/25 00:25 101 H 05/04/25 23:23 36.6 C 110 H 16 173/107 H 96 Room Air Laboratory Results Laboratory Results WBC 14.57 K/ul (4.8-10.8) H 05/04/25 23:36 RBC 5.66 M/uL (4.70-6.10) 05/04/25 23:36 Hgb 17.4 g/dL (14.0-18.0) 05/04/25 23:36 Hct 50.1 % (42.0-52.0) 05/04/25 23:36 MCV 88.5 fL (80.0-100.0) 05/04/25 23:36 MCH 30.7 pg (25.0-34.0) 05/04/25 23:36 MCHC 34.7 g/dL (32.0-36.0) 05/04/25 23:36 RDW Std Deviation 41.4 fL (36.4-46.3) 05/04/25 23:36 RDW Coeff of Octavia 12.7 % (11.5-14.5) 05/04/25 23:36 Plt Count 255 K/uL (130-400) 05/04/25 23:36 MPV 11.2 fL (9.4-12.4) 05/04/25 23:36 Immature Gran % (Auto) 0.5 % 05/04/25 23:36 Neut % (Auto) 67.4 % 05/04/25 23:36 Lymph % (Auto) 21.9 % 05/04/25 23:36 Kemper % (Auto) 8.3 % 05/04/25 23:36 Eos % (Auto) 1.2 % 05/04/25 23:36 Baso % (Auto) 0.7 % 05/04/25 23:36 Neut # (Auto) 9.82 K/uL (1.40-6.50) H 05/04/25 23:36 Lymph # (Auto) 3.19 K/uL (1.20-3.40) 05/04/25 23:36 Kemper # (Auto) 1.21 K/uL (0.11-0.59) H 05/04/25 23:36 Eos # (Auto) 0.17 K/uL (0.00-0.50) 05/04/25 23:36 Baso # (Auto) 0.10 K/uL (0.00-0.20) 05/04/25 23:36 Immature Gran # (Auto) 0.08 K/uL (0.01-0.20) 05/04/25 23:36 VBG pH 7.40 (7.36-7.41) 05/05/25 00:29 VBG pCO2 39 mmHg (38-50) 05/05/25 00:29 VBG pO2 65 mmHg 05/05/25 00:29 VBG HCO3 24 mmol/L 05/05/25 00:29 VBG O2 Saturation 93.8 % 05/05/25 00:29 VBG Base Excess -0.5 mEq/L 05/05/25 00:29 Sodium 131 mmol/L (136-145) L 05/04/25 23:36 Potassium Cancelled 05/05/25 00:29 Chloride 93 mmol/L (98-107) L 05/04/25 23:36 Carbon Dioxide 26 mmol/L (21-32) 05/04/25 23:36 Anion Gap 12 (3-11) H 05/04/25 23:36 BUN 14 mg/dl (6-23) 05/04/25 23:36 Creatinine 0.82 mg/dl (0.6-1.4) 05/04/25 23:36 Est Cr Clr Drug Dosing 141.6 ml/min 05/04/25 23:36 eGFR 107.68 05/04/25 23:36 BUN/Creatinine Ratio 17.1 (10-20) 05/04/25 23:36 Glucose 385 mg/dl (70-99(Fasting)) H* 05/04/25 23:36 POC Glucose 307 mg/dl (70-99) H* 05/05/25 02:16 Lactate 1.4 mmol/L (0.4-2.0) 05/04/25 23:56 Calcium 9.7 mg/dl (8.6-10.3) 05/04/25 23:36 Total Bilirubin 0.4 mg/dl (0.2-1.0) 05/04/25 23:36 AST Cancelled 05/05/25 00:29 ALT 32 U/L (7-52) 05/04/25 23:36 Alkaline Phosphatase 126 U/L (34-104) H 05/04/25 23:36 Total Creatine Kinase 95 U/L (30-223) 05/04/25 23:36 Total Protein 8.0 gm/dl (6.0-8.3) 05/04/25 23:36 Albumin 4.1 gm/dl (3.4-5.0) 05/04/25 23:36 Globulin 3.9 gm/dl (2.5-4.0) 05/04/25 23:36 Albumin/Globulin Ratio 1.1 (0.9-2) 05/04/25 23:36 Impressions Abdomen/Pelvis CT 05/04/25 23:34 EXAM: CT abd pelvis IV con only CLINICAL HISTORY: scrotal infx, ? FG TECHNIQUE: Multiple contiguous axial images were obtained from the level of diaphragm to the pubis symphysis. This study was acquired after the IV administration of iodinated contrast material, given the patient's indications for the examination. If IV contrast material had not been administered, the likelihood of detecting abnormalities relevant to the patient's condition would have been substantially decreased. Coronal and sagittal reformatted images were generated and reviewed to improve anatomic localization and optimize lesion detection. CT scan was performed according to ALARA (as low as reasonably achievable). COMPARISON: CT, 11/04/2023 18:12:58 YARD MANAGER FINDINGS: The visualized lung bases are clear. ABDOMEN/PELVIS: The liver is enlarged in size, measuring 16cm in craniocaudal dimension and shows diffuse parenchynal mild hypoenhancement. No focal liver lesions are seen. There is no intra or extrahepatic biliary ductal dilatation. Hepatic vasculature is patent. The gallbladder is unremarkable. The spleen, pancreas, and adrenal glands are unremarkable. The kidneys are normal in size and attenuation. There is no hydronephrosis or perinephric fat stranding. No renal calculi or renal masses are identified. The ureters are normal in caliber and no ureteral calculi are seen. The bladder is normal in contour. Prostate is unremarkable. No evidence of focal or diffuse bowel wall thickening or evidence of bowel obstruction is seen. No features of inflamed appendix No adenopathy or fluid collections are seen. The aorta is normal in caliber. No aggressive appearing osseous lesions are identified. Mild posterior scrotal wall edema. IMPRESSION: 1. Stable mild hepatomegaly with interval development of hepatic steatosis. 2. Possible mild posterior scrotal wall edema. 3. Interval resolution of left distal ureter calculus with hydroureteronephrosis. Electronically signed by Jace Soliz 05-05-2025 02:26 AM Code Status & VTE Plan Code Status Full code VTE Prophylaxis Plan VTE Prophylaxis will be ordered: Yes PG Care Time/CCT Total # of Minutes Spent Total Time Spent with Patient: Total time spent is greater than 50% in coordination of care (as documented) at patient's floor/unit and/or counseling patient: Coding Level of Care Code 56025 INT INP/OBS CARE 3/75MIN Diagnoses Cellulitis of scrotum N49.2 Scrotal abscess N49.2 T2DM (type 2 diabetes mellitus) E11.9
[2025-05-05] MEDS: LACTATED RINGER'S 1,000 ML IV SCH (02:19)
[2025-05-05] MEDS: METOPROLOL TARTRATE 25 MG TAB PO STA (02:19)
--- NOTE | 2025-05-05 02:26 | CT Scan Report ---
EXAM: CT abd pelvis IV con only CLINICAL HISTORY: scrotal infx, ? FG TECHNIQUE: Multiple contiguous axial images were obtained from the level of diaphragm to the pubis symphysis. This study was acquired after the IV administration of iodinated contrast material, given the patient's indications for the examination. If IV contrast material had not been administered, the likelihood of detecting abnormalities relevant to the patient's condition would have been substantially decreased. Coronal and sagittal reformatted images were generated and reviewed to improve anatomic localization and optimize lesion detection. CT scan was performed according to ALARA (as low as reasonably achievable). COMPARISON: CT, 11/04/2023 18:12:58 GROUND WIRER FINDINGS: The visualized lung bases are clear. ABDOMEN/PELVIS: The liver is enlarged in size, measuring 16cm in craniocaudal dimension and shows diffuse parenchynal mild hypoenhancement. No focal liver lesions are seen. There is no intra or extrahepatic biliary ductal dilatation. Hepatic vasculature is patent. The gallbladder is unremarkable. The spleen, pancreas, and adrenal glands are unremarkable. The kidneys are normal in size and attenuation. There is no hydronephrosis or perinephric fat stranding. No renal calculi or renal masses are identified. The ureters are normal in caliber and no ureteral calculi are seen. The bladder is normal in contour. Prostate is unremarkable. No evidence of focal or diffuse bowel wall thickening or evidence of bowel obstruction is seen. No features of inflamed appendix No adenopathy or fluid collections are seen. The aorta is normal in caliber. No aggressive appearing osseous lesions are identified. Mild posterior scrotal wall edema. IMPRESSION: 1. Stable mild hepatomegaly with interval development of hepatic steatosis. 2. Possible mild posterior scrotal wall edema. 3. Interval resolution of left distal ureter calculus with hydroureteronephrosis. Electronically signed by Jace Soliz 05-05-2025 02:26 AM
--- NOTE | 2025-05-05 02:42 | Ultrasound Report ---
EXAM: US scrotum/testicle CLINICAL HISTORY: Abscess right test. TECHNIQUE: Realtime grayscale and color Doppler ultrasound of the scrotum was performed. Images were obtained in longitudinal and transverse planes. COMPARISON: Previous CT abdomen pelvis, dated 05/03/2025. FINDINGS: Right Testis: Size: Normal: 4.1 X 2.3 X 2.8 cm. Echotexture: Homogenous with small foci of calcification suggestive of microlithiasis. Vascularity: Normal. No focal lesions, masses. Left Testis: Size: Normal: 4.1 X 2.4X 2.8 cm. Echotexture: Homogenous with small foci of calcification suggestive of microlithiasis. Vascularity: Normal. No focal lesions, masses. Epididymis: Right Epididymis: Right epididymis is enlarged with multiple cystic areas suggestive of tubular ectasia. Left Epididymis: Normal size and echotexture Scrotal Wall: Right side skin thickening with subcutaneous edema and increased vascularity suggestive of cellulitis. Dilated veins at the left side with reflux on straining suggestive of left side varicocele. Mild bilateral hydrocele. IMPRESSION: 1. Right side skin thickening with subcutaneous edema and increased vascularity suggestive of cellulitis. No abscess seen. Stable. 2. Left-sided varicocele. 3. Mild bilateral hydrocele. 4. Tubular ectasia of the right epididymis. 5. Small bilateral scrotal calcification suggestive of microlithiasis. Electronically signed by Mirza Minor 05-05-2025 02:42 AM
[2025-05-05] MEDS ORDERED: GLUCOSE 10 TAB/TUBE PO PRN (02:51)
[2025-05-05] MEDS ORDERED: GLUCOSE 40% GEL 15 GM TUBE PO PRN (02:51)
[2025-05-05] MEDS ORDERED: ALBUT/IPRATROP 3MG/0.5MG NEB 3 ML VIAL NEB PRN (02:51)
[2025-05-05] MEDS ORDERED: CARBOHYDRATES FOR HYPOGLYCEMIA PO PRN (02:51)
[2025-05-05] MEDS ORDERED: ONDANSETRON INJ 2 MG/ML 2 ML VIAL IV PRN (02:51)
[2025-05-05] MEDS ORDERED: GLUCAGON FOR INJ 1 MG VIAL SQ PRN (02:51)
[2025-05-05] MEDS ORDERED: VANCOMYCIN CONSULT ACTIVE PRN (02:51)
[2025-05-05] MEDS ORDERED: DEXTROSE 50% 50 ML SYRINGE IV PRN (02:51)
[2025-05-05 03:00] LABS: Potassium 3.9 mmol/L (3.5-5.1)
[2025-05-05] MEDS: INSULIN ASPART PER UNIT CHARGE SC STA ×2 (04:08→12:56)
[2025-05-05] MEDS: PIPERACILLIN/TAZOBACTAM 4.5 GM/100 ML BAG IV SCH (06:02)
[2025-05-05] MEDS: INSULIN ASPART PER UNIT CHARGE SC SCH ×2 (06:40→18:06)
[2025-05-05] MEDS ORDERED: Nursing to Pharmacy Communication SCH ×3 (07:15→17:45)
[2025-05-05] MEDS: ACETAMINOPHEN 325 MG TAB PO PRN (07:25)
--- NOTE | 2025-05-05 07:44 | Pharmacy Report ---
Pharmacy PK ABX Note - Date of Service May 05, 2025 - Assessment and Plan Assessment 50 year old M receiving vancomycin/zosyn for cellulitis of scrotum/scrotum abscess. Blood cultures pending. Urology consulted and potential for I&D pending clinical improvement. Plan Vancomycin * Loading dose: 2500 mg IV x 1 * Maintenance dose: 1500 mg IV every 12 hours * Regimen is predicted to achieve target AUC/NATALIYA of 400-600 mg/L.hr * Random level ordered tomorrow AM with labs to assess dosing. Pharmacy will continue to follow and will adjust dose/frequency as necessary. Thank you. Pharmacy has transitioned to AUC monitoring for vancomycin. AUC/NATALIYA is the preferred PK/PD target and is associated with decreased risk of nephrotoxicity compared to traditional trough targets.
[2025-05-05 08:45] LABS: Hemoglobin A1C 14.3 % (4.5-5.6)
[2025-05-05] MEDS: NICOTINE 21 MG/24 HR TDSY TD SCH (08:55)
[2025-05-05] MEDS: METOPROLOL TARTRATE 25 MG TAB PO SCH (08:56)
[2025-05-05] MEDS: REMOVE NICODERM PATCH SCH (08:56)
[2025-05-05] MEDS: VANCOMYCIN HCL 1,500 MG in SODIUM CHLORIDE 0.9% 500 ML IV SCH (09:01)
[2025-05-05] MEDS: LIDOCAINE 1% LOCAL 20 ML VIAL INFIL ONE (11:50)
--- NOTE | 2025-05-05 12:31 | Urology Progress Note ---
Date of Service May 05, 2025 Assessment & Plan (1) Cellulitis of scrotum: (2) Scrotal abscess: Plan: 50-year-old male admitted for scrotal cellulitis/abscess. Patient remains afebrile No new labs at time of visit Patient with scrotal cellulitis with possible small abscess, which has spontaneously started draining On exam, there is a small area on scrotum that is spontaneously draining purulent drainage with some induration and possible further collection surrounding Discussed with patient possible I&D with Dr. Rojas to better drain the area He is agreeable to proceed See attending note regarding bedside I&D procedure Consult wound management nurse Continue supportive care and antibiotics per hospital medicine service Recommend tight glucose control will follow Plan Patient with mild spontaneous drainage of infected cyst versus abscess for cellulitis. Patient had area of fluctuance. Risk benefits were thoroughly reviewed with patient. Discussed options. Discussed options for surgery under anesthesia versus under local while in the OR versus bedside procedure. Reviewed extensively risk and benefits. Discussed indications for surgical intervention. Discussed possible need for further intervention or management. Discussed options for observation and surveillance with broad-spectrum antibiotic coverage discussed other alternatives. Risks and benefits were thoroughly reviewed. All questions answered. Excision/incision and drainage of scrotal abscess Procedure: Right hemiscrotum Indications for the procedure: Cellulitis with infected fluid collection likely abscess Risks, benefits, alternatives, risk of bleeding, infection risks and possible injury to the genital, scrotum, or testicle were discussed with the patient. Consent was obtained prior to the procedure and is detailed in the patient's record. Prior to the start of the procedure, a time out was taken and the identity of the patient was confirmed via name and date of by the patient. The correct site and the procedure to be performed were confirmed. Procedure Note: The patient was placed in the supine position. The patient was prepped and draped in the usual sterile fashion using Betadine swabs x 3. A 1% lidocaine solution was utilized to inject the skin directly above the likely abscess cavity. The surrounding tissue as well as deeper tissue were then anesthetized utilizing the 1% lidocaine. No bleeding or other issues. Fluid from the interior of the cavity was then attempted to be aspirated was found to be extremely thick and unable to be aspirated through the 22-gauge needle. The skin and tissue was assessed. Good anesthetic results had been achieved with the local anesthetic. The 11 blade scalpel was used to incise the tissue. The area of spontaneous drainage appeared to have opened to a cystic cavity possibly an infected sebaceous cyst. Utilizing the scalpel the track was excised from the surrounding tissue as it did appear to have a blanched and irregular possibly necrotic appearance. An elliptical incision was utilized in order to remove the track and the surrounding tissue and to open the cavity adequately. Once the incision was made approximately 1.3 cm in length, the cavity was then probed. A swab was taken from inside the cavity and sent for culture debris with likely sebaceous fluid and purulence was able to be discharged. This was flushed clear. There did appear to be a possible cystic cavity however was difficult to determine due to the cellulitis and inflammation in the surrounding tissue. No significant loculations or channels. Once the abscess cavity was adequately opened flushed and cleared of debris the wound was inspected. The wound dimensions were 1.3 cm x 0.6 cm x 1.1 cm deep. The skin edges were bleeding without major issue. The deep portion of the cavity showed no signs of necrosis. After flushing the area out of final time the patient was cleaned and quarter inch iodoform packing was placed into the wound with both ends remaining outside of the wound. No additional areas of abscess cavity or irregularity were noted. With the packing in place the area was further cleaned and bandaged. Patient tolerated the procedure without major issue or concern. The patient tolerated the procedure well. There were no complications. Dressing: Quarter inch iodoform packing in the wound. 4 x 4's over top of the wound. Patient Status: The patient tolerated the procedure well. Complications: No complications. Patient tolerated procedure well. Will place order for wound care for further management of scrotal abscess. May need to have reevaluation in the next 2 to 3 months. Was difficult to determine if this was a an infected cyst such as a sebaceous cyst versus abscess. Patient does have extremely poor diabetic control with very high hemoglobin A1c. Did encourage patient to better control his issues especially in relation to the chronic infections and other issues. Will defer to wound care for further wound management after incision and drainage. Had Discussed risks and benefits of procedure, consisting but not limited to infection, bleeding, or injury. Long conversation of post-operative care and management. Discussed wound care and activity afterwards. Defer to wound care for orders for the next 1 to 2 weeks, otherwise if any issues or bleeding or pain, Ice to be used 20 mins on and 20 mins off for 2 days and as needed after. Avoid over activity or any contact activity. Okay to wash or shower. Do not soak, bath, or swim. Monitor for swelling or redness or pain. Call with any issues or fevers. Admission and Anticipated Discharge Date Admission Date: May 05, 2025 Subjective Patient seen and examined at bedside. He is awake and resting in bed. Reports some improvement in discomfort. Reports he was having pressure, but that has mostly resolved. Has noted some spontaneous drainage. Voiding without difficulty. No fever or chills. Review of Systems Review of Systems: All systems reviewed & are unremarkable except as noted in HPI & below Constitutional: as per Subjective / HPI Genitourinary: + as per Subjective / HPI Physical Exam Physical Exam: General: Alert in no acute distress. Obese. HEENT: Normocephalic Atraumatic. Inspection normal. Cranial Nerves 2-12 Grossly intact. Normal inspection of face. Normal inspection of neck. Psychologic: Normal affect. Respiratory: Nonlabored. No use of accessory muscles. No tachypnea or dyspnea. Cardiovascular: No tachycardia Skin: [place] and Dry. No rashes or visible lesions. Extremities/Lymphatics: No edema Abdomen: Soft Non-distended. Morbid obesity. No rebound or guarding. : Fluctuant area approximately 2.6 cm in size along the right scrotal wall/scrotal junction with the inguinal region. Small opening along the anterior portion with purulent/sebaceous drainage. Approximately 2 additional centimeters of induration around the surrounding tissue likely cellulitis. Constitutional: + obese; no acute distress Respiratory: normal respiratory effort; no respiratory distress and no labored breathing Gastrointestinal (Abdomen): Inspection/Auscultation: abdomen normal to inspection Musculoskeletal: Head/Neck/Chest: normocephalic Neurologic: moves all extremities and awake Psychiatric: Orientation: alert and oriented x 3 Genitourinary: Scrotum with erythema. Right anterior scrotum with small pin point opening draining purulent drainage. There is some induration surrounding this area approx 2x2 cm. No crepitus. Results & Data Vital Signs (Past 12 Hours) Vital Signs Temp Pulse Pulse Resp BP BP BP 05/05/25 12:19 36.3 C L 77 19 164/89 H 05/05/25 08:17 36.5 C 90 18 166/86 H 05/05/25 06:45 80 05/05/25 02:53 84 05/05/25 02:53 36.4 C L 85 20 155/90 H 05/05/25 02:18 36.8 C 92 H 20 155/101 H 05/05/25 02:15 91 H 20 177/103 H 05/05/25 02:13 82 20 186/101 H 05/05/25 00:30 100 H 22 148/102 H Pulse Ox O2 Del Method 05/05/25 12:19 93 Room Air 05/05/25 08:17 90 Room Air 05/05/25 06:45 05/05/25 02:53 05/05/25 02:53 92 Room Air 05/05/25 02:18 94 Room Air 05/05/25 02:15 93 Room Air 05/05/25 02:13 93 Room Air 05/05/25 00:30 94 Room Air PG Care Time/CCT Total # of Minutes Spent Total Time Spent with Patient: Total time spent is greater than 50% in coordination of care (as documented) at patient's floor/unit and/or counseling patient: Coding Level of Care Code 69033 SUB INP/OBS CARE 3/50MIN Diagnoses Cellulitis of scrotum N49.2 Scrotal abscess N49.2 CPT Codes INCISION DRAINAGE SKIN ABSCESS COMPLICATED/MULTIPLE - 12037 ([id number])
--- NOTE | 2025-05-05 14:11 | Hospitalist Progress Note ---
Date of Service May 05, 2025 Assessment & Plan (1) Cellulitis of scrotum: (2) Scrotal abscess: (3) T2DM (type 2 diabetes mellitus): Plan Patient is a 50-year-old male past medical history including diabetes mellitus type 2 insulin requiring, angioedema, hypertension, morbid obesity, hypothyroidism, GERD, and kidney stones. He presents to the emergency department with concerns regarding right sided scrotal swelling that is painful and draining. It is similar episode 9 years ago that needed surgical drainage. He thinks it probably began from an ingrown hair. He denies any systemic symptoms of fevers, chills, nausea, vomiting, generalized myalgias or arthralgias. Workup in the emergency department included abnormal laboratories: WBC 14.57, hemoglobin 17.4, hematocrit 50.1, sodium 131, glucose 385. CT scan of abdomen and pelvis shows stable mild hepatomegaly with interval development of hepatic steatosis. Possible mild posterior scrotal wall edema. Interval resolution of the left distal ureteral calculus with hydroureteronephrosis. Patient was referred for admission to the [facility] service with consult to urology, who saw the patient while in the ED. #Cellulitis of scrotum/scrotal abscess CT of abdomen pelvis suggest possible edema of scrotal wall Testicular ultrasound is pending Urology consult appreciated Bedside I&D performed on 05/05 Wound cultures taken at bedside Follow cultures and sensitivities LR at 125 mL/h Continue vancomycin and Zosyn IV #Uncontrolled diabetes mellitus | hyperglycemia A1c elevated at 14.3% on 05/04 Hold Trulicity, glipizide, and metformin Patient is normally on glargine 38u HS; decrease to 30u while inpatient BSG ACHS NovoLog SSI with goal 110-140, CF 20, carb ratio 10 Adjust regimen as needed certified lactation educator consult appreciated Will plan for Dexcom G7 CGM upon discharge If continued episodes of hypoglycemia, would recommend pharmacy glycemic consult #Hypertension Continue metoprolol #GERD Continue pantoprazole #Anxiety Continue alprazolam #Allergy/angioedema history Continue montelukast Disposition: Continue stay on [facility] telemetry; bedside wound cultures pending (will need to tailor abx pending results) Admission and Anticipated Discharge Date Admission Date: May 05, 2025 Subjective Mr. Ward is doing better this morning. He reports that the pain was so bad ye sterday at work that he had trouble sitting down; however, he feels that there has been purulent drainage overnight, and that the "pressure let up" in his groin region. He rates the pain as a 5 out of 10 at present, whereas yesterday it was a constant 8 out of 10. He still has erythema and swelling around the testicles, but reports he is feeling much better. He is still having yellowish/greenish purulent drainage this morning. He reports that the last time this happened 9 years ago, there was a pinpoint drainage of purulence around the same location, and this was drained in the emergency department and he was sent home. He does report that the Tylenol helped this morning. ROS: Patient endorses mild testicular pain, and pinpoint purulent drainage from the scrotum. Patient denies fever, chills, night sweats, headache, chest pain, SOB, dizziness/lightheadedness with walking, penile drainage, blood in urine or stool, or numbness or tingling going down the legs. Review of Systems Review of Systems: See HPI above Physical Exam Physical Exam: General: no acute distress; non-toxic appearing; cooperative; SpO2 91% on RA HEENT: normocephalic, atraumatic; PERRLA; vision and hearing intact Neck: supple; trachea midline Skin: warm, dry without signs of tenting; no cyanosis; no rashes, bruising, lesions, or erythema noted CV: chest wall NTP; RRR; S1/S2 normal; no murmurs/rubs/gallops; pulses intact and symmetric at radial, DP, and PT Lungs: no acute respiratory distress; symmetrical chest wall expansion; clear breath sounds across all lung chapman w/o adventitious sounds; no wheezing ABD: Soft, NTP; BS present; no rebound/guarding; no distention : Scrotum is edematous/erythematous, with pinpoint purulent drainage on the anterior right side; surrounding tissue is erythematous, but no inguinal lymphadenopathy appreciated MSK: no tics or fasciculations; no edema noted in the LEs b/l, nonerythematous Neuro: A&Ox3; normal mood and affect; fluent speech; sensation intact and symmetric in the LEs b/l Results & Data Results & Data Vital Signs (Past 12 Hours) Vital Signs Temp Pulse Pulse Resp BP BP BP 05/05/25 12:19 36.3 C L 77 19 164/89 H 05/05/25 08:17 36.5 C 90 18 166/86 H 05/05/25 06:45 80 05/05/25 02:53 84 05/05/25 02:53 36.4 C L 85 20 155/90 H 05/05/25 02:18 36.8 C 92 H 20 155/101 H 05/05/25 02:15 91 H 20 177/103 H 05/05/25 02:13 82 20 186/101 H Pulse Ox O2 Del Method 05/05/25 12:19 93 Room Air 05/05/25 08:17 90 Room Air 05/05/25 06:45 05/05/25 02:53 05/05/25 02:53 92 Room Air 05/05/25 02:18 94 Room Air 05/05/25 02:15 93 Room Air 05/05/25 02:13 93 Room Air PG Care Time/CCT Total # of Minutes Spent Total Time Spent with Patient: Total time spent is greater than 50% in coordination of care (as documented) at patient's floor/unit and/or counseling patient: Coding [place] [address] SUB INP/OBS CARE 3/50MIN Patient Type Established History Comprehensive Exam Comprehensive Medical Decision Making High Complexity Diagnoses Cellulitis of scrotum N49.2 Scrotal abscess N49.2 T2DM (type 2 diabetes mellitus) E11.9
[2025-05-05] MEDS: LANTUS PER UNIT CHARGE SC SCH (20:35)
[2025-05-05] MEDS: MONTELUKAST SODIUM 10 MG TABLET PO SCH (20:36)
[2025-05-05] MEDS ORDERED: LANTUS PER UNIT CHARGE SC SCH (21:00)
[2025-05-06 07:14] LABS: Hematocrit (blood only) 46.8 % (42.0-52.0); Hemoglobin 15.7 g/dL (14.0-18.0); Immature Granulocytes # (auto) 0.04 K/uL (0.01-0.20); Immature Granulocytes % (auto) 0.4 %; Mean Corpuscular Hemoglobin 30.3 pg (25.0-34.0); Mean Corpuscular Volume 90.2 fL (80.0-100.0); Platelet Count 195 K/uL (130-400); RDW Standard Deviation 42.2 fL (36.4-46.3); Red Blood Count 5.19 M/uL (4.70-6.10); White Blood Count 8.99 K/ul (4.8-10.8)
[2025-05-06 07:38] LABS: Alanine Aminotransferase 43.0 U/L (7-52); Albumin Globulin Ratio 1.1 (0.9-2); Albumin Level 3.5 gm/dl (3.4-5.0); Alkaline Phosphatase 93.0 U/L (34-104); Anion Gap 8.0 (3-11); Bilirubin,Total 0.6 mg/dl (0.2-1.0); Blood Urea Nitrogen 8.0 mg/dl (6-23); Calcium 8.8 mg/dl (8.6-10.3); Carbon Dioxide 27.0 mmol/L (21-32); Chloride 99.0 mmol/L (98-107); Creatinine Clr Calc Pharmacy 211.0 ml/min; Globulin 3.3 gm/dl (2.5-4.0); Glucose 302.0 mg/dl (70-99(Fasting)); Magnesium 1.7 mg/dl (1.7-2.4); Potassium 4.5 mmol/L (3.5-5.1); Sodium 134.0 mmol/L (136-145); Total Protein 6.8 gm/dl (6.0-8.3)
[2025-05-06] MEDS: VANCOMYCIN LEVEL ONE (08:06)
[2025-05-06 08:08] VITALS: TEMP 97.4
--- NOTE | 2025-05-06 09:15 | Urology Progress Note ---
Date of Service May 06, 2025 Assessment & Plan (1) Cellulitis of scrotum: (2) Scrotal abscess: Plan: 50-year-old male admitted for scrotal cellulitis/abscess. Patient's status post bedside I&D on 05/05 He remains afebrile Labs today reviewedcreatinine 0.56, WBC 8.99, hemoglobin 15.7 Wound cultures from scrotum prelim with strep agalactiae group B Continue broad-spectrum antibiotics and narrow per sensitivities Wound care nurse consulted-continue wound care per wound care nurse Continue supportive care and antibiotics per hospital medicine service Recommend tight glucose control Will arrange outpatient follow-up with our service for reassessment will sign off, please consult our service with any additional questions or concerns Admission and Anticipated Discharge Date Admission Date: May 05, 2025 Subjective Patient seen and examined at bedside this morning. He is awake and resting in bed. Denies scrotal pain or discomfort. Denies any significant drainage overnight. No fever or chills. No nausea or vomiting. He is voiding without difficulty. He would like to go home. Review of Systems Constitutional: as per Subjective / HPI Genitourinary: + as per Subjective / HPI Physical Exam Constitutional: + obese; no acute distress Respiratory: normal respiratory effort; no respiratory distress and no labored breathing Gastrointestinal (Abdomen): Inspection/Auscultation: abdomen normal to inspection Musculoskeletal: Head/Neck/Chest: normocephalic Neurologic: moves all extremities and awake Psychiatric: Orientation: alert and oriented x 3 Genitourinary: Scrotum with erythema. No significant drainage on gauze dressing at present. The packing is no longer in place. Minimal purulent drainage from wound. Approx 2 cm area surrounding induration. No crepitus. Results & Data Vital Signs (Past 12 Hours) Vital Signs Temp Pulse Pulse Resp BP Pulse Ox O2 Del Method 05/06/25 08:07 36.3 C L 96 H 20 168/88 H 91 Room Air 05/06/25 05:10 82 05/06/25 04:01 36.5 C 85 18 143/83 H 91 Room Air 05/05/25 23:16 36.3 C L 76 18 163/96 H 90 Room Air 05/05/25 21:41 103 H PG Care Time/CCT Total # of Minutes Spent Total Time Spent with Patient: Total time spent is greater than 50% in coordination of care (as documented) at patient's floor/unit and/or counseling patient: Coding Level of Care Code 18477 SUB INP/OBS CARE 07/13MIN Diagnoses Cellulitis of scrotum N49.2 Scrotal abscess N49.2
--- NOTE | 2025-05-06 09:25 | Hospitalist Progress Note ---
"Date of Service May 06, 2025 Assessment & Plan (1) Cellulitis of scrotum: (2) Scrotal abscess: (3) T2DM (type 2 diabetes mellitus): Plan Patient is a 50-year-old male past medical history including diabetes mellitus type 2 insulin requiring, angioedema, hypertension, morbid obesity, hypothyroidism, GERD, and kidney stones. He presents to the emergency department with concerns regarding right sided scrotal swelling that is painful and draining. It is similar episode 9 years ago that needed surgical drainage. He thinks it probably began from an ingrown hair. He denies any systemic symptoms of fevers, chills, nausea, vomiting, generalized myalgias or arthralgias. Workup in the emergency department included abnormal laboratories: WBC 14.57, hemoglobin 17.4, hematocrit 50.1, sodium 131, glucose 385. CT scan of abdomen and pelvis shows stable mild hepatomegaly with interval development of hepatic steatosis. Possible mild posterior scrotal wall edema. Interval resolution of the left distal ureteral calculus with hydroureteronephrosis. [facility], who saw the patient while in the ED. #Cellulitis of scrotum/scrotal abscess CT of abdomen pelvis suggest possible edema of scrotal wall Testicular ultrasound is pending Urology consult appreciated Bedside I&D performed on 05/05 Wound cultures taken at bedside LR at 125 mL/h Continue vancomycin and Zosyn IV Gram stain finalized with gram-positive cocci on 05/06 Wound culture (aerobic/anaerobic) still pending on 05/06 Patient will need wound care as an outpatient #Uncontrolled diabetes mellitus | hyperglycemia A1c elevated at 14.3% on 05/04 Patient will need much stronger diabetic control upon discharge, as uncontrolled diabetes can lead to poor circulation and immunosuppression Discussed lifestyle changes with patient at bedside logistics solution manager consult appreciated Will plan for Dexcom G7 CGM upon discharge Hold Trulicity, glipizide, and metformin while inpatient Insulin glargine 38u HS BSG ACHS NovoLog SSI with goal 110-140, CF 20, carb ratio 10 Adjust regimen as needed #Hypertension Continue metoprolol #GERD Continue pantoprazole #Anxiety Continue alprazolam #Allergy/angioedema history Continue montelukast [facility] awaiting wound culture, as this will be needed to prescribe appropriate outpatient antibiotics Admission and Anticipated Discharge Date Admission Date: May 05, 2025 Subjective Mr. Ward is doing well this morning. He slept well last night, and reports has been eating and drinking well this morning. He denies any pain in his scrotum. He did have a bowel movement last night. In regard to lifestyle habits, he does report that he drinks lots of regular Mountain Dew (not diet). ROS: Patient endorses scrotal swelling/erythema. Patient denies scrotal pain, fevers, chills, night sweats, chest pain, chest palpitations, SOB, cough, abdominal pain, N/V/D, burning with urination, penile discharge, blood in the urine/stool, or changes in urinary/bowel habits. Review of Systems Review of Systems: See HPI above Physical Exam Physical Exam: General: no acute distress; non-toxic appearing; cooperative; SpO2 91% on RA HEENT: normocephalic, atraumatic; PERRLA; vision and hearing intact Neck: supple; trachea midline Skin: warm, dry without signs of tenting; no cyanosis; no rashes, bruising, lesions, or erythema noted CV: chest wall NTP; RRR; S1/S2 normal; no murmurs/rubs/gallops; pulses intact and symmetric at radial, DP, and PT Lungs: no acute respiratory distress; symmetrical chest wall expansion; clear breath sounds across all lung chapman w/o adventitious sounds; no wheezing ABD: Soft, NTP; BS present; no rebound/guarding; no distention : Scrotum is mildly edematous/erythematous; surrounding tissue is non- erythematous; no inguinal lymphadenopathy appreciated MSK: no tics or fasciculations; no edema noted in the LEs b/l, nonerythematous Neuro: A&Ox3; normal mood and affect; fluent speech; sensation intact and symmetric in the LEs b/l Results & Data Results & Data Vital Signs (Past 12 Hours) Vital Signs Temp Pulse Pulse Resp BP Pulse Ox O2 Del Method 05/06/25 08:07 36.3 C L 96 H 20 168/88 H 91 Room Air 05/06/25 05:10 82 05/06/25 04:01 36.5 C 85 18 143/83 H 91 Room Air 05/05/25 23:16 36.3 C L 76 18 163/96 H 90 Room Air 05/05/25 21:41 103 H PG Care Time/CCT Total # of Minutes Spent Total Time Spent with Patient: Total time spent is greater than 50% in coordination of care (as documented) at patient's floor/unit and/or counseling patient: Coding Patient Type Established Diagnoses Cellulitis of scrotum N49.2 Scrotal abscess N49.2 T2DM (type 2 diabetes mellitus) E11.9"
--- NOTE | 2025-05-06 10:48 | Discharge Summary ---
"Discharge Summary Date of Service May 06, 2025 Principal Dx & Hospital Course #1 = Principal Diagnosis (1) Cellulitis of scrotum: (2) Scrotal abscess: (3) T2DM (type 2 diabetes mellitus): Plan Patient is a 50-year-old male past medical history including diabetes mellitus type 2 insulin requiring, angioedema, hypertension, morbid obesity, hypothyroidism, GERD, and kidney stones. He presents to the emergency department with concerns regarding right sided scrotal swelling that is painful and draining. It is similar episode 9 years ago that needed surgical drainage. He thinks it probably began from an ingrown hair. He denies any systemic symptoms of fevers, chills, nausea, vomiting, generalized myalgias or arthralgias. Workup in the emergency department included abnormal laboratories: WBC 14.57, hemoglobin 17.4, hematocrit 50.1, sodium 131, glucose 385. CT scan of abdomen and pelvis shows stable mild hepatomegaly with interval development of hepatic steatosis. Possible mild posterior scrotal wall edema. Interval resolution of the left distal ureteral calculus with hydroureteronephrosis. Patient was referred for admission to the [facility] with consult to urology, who saw the patient while in the ED. #Cellulitis of scrotum | scrotal abscess CT of abdomen pelvis suggest possible edema of scrotal wall No abscess seen on testicular ultrasound Urology consult appreciated Bedside I&D performed on 05/05 Unclear if this was due to an infected cyst vs scrotal abscess Wound cultures taken at bedside Patient received vancomycin 1500 mg IV q12h and Zosyn 4.5 g IV q8h while inpatient Gram stain finalized with gram-positive cocci on 05/06 Wound culture (aerobic/anaerobic) growing strep agalactiae (group B) Discharge patient home on Augmentin 875-125 mg tablets BID x 7 days Wound care as an outpatient #Uncontrolled diabetes mellitus | hyperglycemia A1c elevated at 14.3% on 05/04 Patient will need much stronger diabetic control upon discharge, as uncontrolled diabetes can lead to poor circulation and immunosuppression Discussed lifestyle changes with patient at bedside certified adapted physical educator consult appreciated Will plan for Dexcom G7 CGM upon discharge Resume Trulicity, glipizide, and metformin upon discharge Insulin glargine 38u HS #Hypertension Continue metoprolol #GERD Continue pantoprazole #Anxiety Continue alprazolam TID Reviewed in PDMP, patient has been on this medication for extended period of time (since at least January 2024) #Allergy/angioedema history Continue montelukast Day of discharge 05/06: Patient is mildly hypertensive at 168/88 at time of discharge; vitals otherwise stable. Mr. Ward is doing well this morning. He slept well last night, and reports has been eating and drinking well this morning. He denies any pain in his scrotum. He did have a bowel movement last night. In regard to lifestyle habits, he does report that he drinks lots of regular Mountain Dew (not diet). Patient is fairly adamant about being discharged home today, and she feels asymptomatic at this time. Patient reports he already has an appointment scheduled with his PCP next week. Patient does appear lethargic/sleepy this morning, but expresses a desire to drive himself home. Suspect this is due to a poor night sleep rather than alprazolam usage (as patient has been on 1 mg 3 times daily for an extended period of time). Explained that he should not drive if he in any way feels sedated. Encouraged him to drink coffee prior to discharge, and touched base with nursing staff recommending he wait until this afternoon/until he is more awake. ROS: Patient endorses scrotal swelling/erythema. Patient denies scrotal pain, fevers, chills, night sweats, chest pain, chest palpitations, SOB, cough, abdominal pain, N/V/D, burning with urination, penile discharge, blood in the urine/stool, or changes in urinary/bowel habits. Disposition: Discharge home Notes For Next Care Provider Patient hospitalized for scrotal cellulitis, as well as a pinpoint purulent drainage from the anterior surface of the scrotum. He underwent a bedside I&D with our urology team, who feel that this could have been either an infected cyst versus a scrotal abscess. He received IV vancomycin and Zosyn while in the hospital. His preliminary wound culture is growing Streptococcus agalactiae at time of discharge. While we discussed sending patient home on amoxicillin, will plan for broader coverage with Augmentin in the setting of uncontrolled diabetes. Patient's A1c was 14.3% on arrival. We had our certified adapted physical educator come chat with the patient, and we will plan to prescribe him a Dexcom upon discharge. He was encouraged to discontinue Mountain Dew, check his blood sugar 4 times daily, and drink more water. He should resume his prior insulin regimen/home medications upon discharge (Lantus 38u HS, metformin BID, glipizide, and Trulicity). Admission HPI Per Admitting Provider Patient is a 50-year-old male past medical history including diabetes mellitus type 2 insulin requiring, angioedema, hypertension, morbid obesity, hypothyroidism, GERD, and kidney stones. He presents to the emergency department with concerns regarding right sided scrotal swelling that is painful and draining. It is similar episode 9 years ago that needed surgical drainage. He thinks it probably began from an ingrown hair. He denies any systemic symptoms of fevers, chills, nausea, vomiting, generalized myalgias or arthralgias. Workup in the emergency department included abnormal laboratories: WBC 14.57, hemoglobin 17.4, hematocrit 50.1, sodium 131, glucose 385. CT scan of abdomen and pelvis shows stable mild hepatomegaly with interval development of hepatic steatosis. Possible mild posterior scrotal wall edema. Interval resolution of the left distal ureteral calculus with hydroureteronephrosis. Patient was referred for admission to the [facility] with consult to urology, who saw the patient while in the ED. Admission Exam Per Admitting Provider The patient is awake, alert and oriented 3, well developed and well nourished, normocephalic and atraumatic, lying in bed and in no acute distress. HEENT--PERRL, EOMI, mucous membranes and oropharynx dry. Neck--supple. No JVD. No bruits. Thyroid normal, trachea midline, no adenopathy. Heart--normal S1 and S2. No murmurs, rubs or gallops. Lungs--clear bilaterally, no respiratory distress, no accessory muscle use. Abdomen/pelvis--normal bowel sounds and soft. Right scrotum with erythema, tender and warm, with small with purulent drainage is noted. Area Extremities--no cyanosis or clubbing. No edema. There are good distal pulses b/l. Dermatologic--normal except for above Neurologic--cranial nerves II through XII grossly intact. Rheumatologic--normal range of motion. Psychiatric--normal affect. Discharge Exam General: no acute distress; non-toxic appearing; cooperative; SpO2 91% on RA HEENT: normocephalic, atraumatic; PERRLA; vision and hearing intact Neck: supple; trachea midline Skin: warm, dry without signs of tenting; no cyanosis; no rashes, bruising, lesions, or erythema noted CV: chest wall NTP; RRR; S1/S2 normal; no murmurs/rubs/gallops; pulses intact and symmetric at radial, DP, and PT Lungs: no acute respiratory distress; symmetrical chest wall expansion; clear breath sounds across all lung chapman w/o adventitious sounds; no wheezing ABD: Soft, NTP; BS present; no rebound/guarding; no distention : Scrotum is mildly edematous/erythematous; surrounding tissue is non- erythematous; no inguinal lymphadenopathy appreciated MSK: no tics or fasciculations; no edema noted in the LEs b/l, nonerythematous Neuro: A&Ox3; normal mood and affect; fluent speech; sensation intact and symmetric in the LEs b/l Discharge Plan Discharge Items Patient Disposition: Home - Self-Care Reason For Visit: SCROTAL ABSCESS Discharge Diagnosis: Scrotal cellulitis; ?Scrotal abscess vs infected cyst Condition on Discharge: Good Activity: Resume your previous activity Non-emergency contact: Primary Care Provider Call non-emergency contact if: you have any medication questions, your symptoms worsen, your pain is not controlled and you have a fever Follow-up/Referrals: Scar Faustin DO [Primary Care Provider] - (Please make a follow up appointment with your primary care provider within 1-2 weeks after your disch arge.) Diet: Carb Consistent or DM2 Addtl Attending Provider Instructions: You were hospitalized at [facility] from 05/05 to 05/06 for a skin/soft tissue infection involving your scrotum. You were seen by our urology team, who performed a bedside incision and drainage to better characterize your infection. It is possible that this infection was caused by either an infected cyst or a scrotal abscess. Regardless, you were treated with IV antibiotics (vancomycin and Zosyn) while in the hospital. Your wound culture taken at bedside grew a bacteria called Streptococcus. Given that you report resolution of your pain, and your white blood cell count is normal (which does not indicate signs of severe infection), we feel that you are safe to return home at this time on oral antibiotics. New prescriptions on discharge: Augmentin 875-125 mg tablets twice daily x 7 days Please plan to follow-up with your PCP in the next 7 to 10 days for a transitional care appointment. Additionally, you were seen by our certified adapted physical educator while in the hospital for uncontrolled diabetes. Your A1c was elevated at 14.3% on arrival. Having uncontrolled diabetes puts you at increased risk for recurrent infections. It can also lead to immunosuppression and decreased circulation making antibiotics less effective. Please follow the diabetes recommendations listed below. Be sure to use your new Dexcom G7 sensor for closer blood sugar monitoring, check your blood sugar 4 times daily, avoid Mountain Dew, drink plenty of water, and follow-up with your PCP regarding diabetic management as an outpatient. If you develop any new or worsening symptoms, such as fever, chills, intractable groin pain, penile discharge, puslike drainage from the scrotum, lightheadedness, or intractable nausea and vomiting, please return to the emergency department immediately. It was a pleasure taking care of you. Please reach out with any questions or concerns. Sincerely, The Hospital medicine team at [facility] Addtl [employer] Provider Instructions: DIABETES RECOMMENDATIONS: 1.) Lifestyle Changes. - Your Mountain Dew intake is equivalent to ~2 cups of sugar every day. To help improve blood sugar levels recommend you eliminate regular Mountain Dew and choose water or other zero sugar/calorie drinks instead. - Aim for regular/balanced meals (For example: eggs/ 2 slices toast/fruit for breakfast, leftovers for lunch, 1/2 sub sandwich/Macedonian/[employer] Meal) to help balance blood sugar levels and support healing. - When snacking, try to choose higher protein snacks to support healing- including nuts, cottage cheese, beef jerky, hard boiled egg, etc. 2.) Monitoring. - A Dexcom G7 sensor was started for closer monitoring of blodo sugar levels. - Use these results to guide diet changes. - Aim to maintain blood sugar levels below 180 (ideally below 150 before meals) to support healing/continued recovery. - Please notify your provider if your blood sugar levels are frequently above these targets or below 70. 3.) Diabetes Medications. - If your blood sugar levels remain elevated despite lifestyle changes, please reach out to your provider so that your diabetes medications can be adjusted to help improve blood sugar levels/support healing. Pending Studies at Discharge: Yes Studies:: Wound culture; please see culture number [id number] for sensitivities Stand-Alone Forms: [facility], Work/School Release, Smoking Cessation Medications and DC Order Prescriptions: New (DME) Dexcom G7 Sensor Device See Rx Instructions .Route Qty: 1 0RF Rx Instructions: As directed amoxicillin-pot clavulanate 875-125 mg tablet 1 tab PO BID 7 Days Qty: 14 0RF Rx Instructions: Take 1 tablet by mouth twice daily x 7 days Continued metformin 1,000 mg tablet 1,000 mg PO AMPM aspirin 81 mg Tablet,Delayed Release (Dr/Ec) 81 mg PO QAM pantoprazole 40 mg tablet,delayed release (DR/EC) 40 mg PO HS alprazolam 1 mg tablet 1 mg PO TID montelukast 10 mg tablet 10 mg PO HS Qty: 30 2RF (DME) lancets 30 gauge misc See Rx Instructions .Route Qty: 100 2RF Rx Instructions: As directed glipizide 5 mg tablet 5 mg PO DAILY metoprolol tartrate 25 mg tablet 25 mg PO BID Trulicity 1.5 mg/0.5 mL Pen Injector 1.5 mg SUBCUT WK Rx Instructions: SUNDAYS insulin glargine [Lantus Solostar U-100 Insulin] 100 unit/mL (3 mL) insulin pen 38 unit subcut HS Discharge Orders: Discharge Order (Routine); Ordered 05/06/25 Ordered By: Montrell Holland/Other Patient Handouts: CGM, High Blood Sugar (Hyperglycemia), Managing Type 2 Diabetes, High Blood Pressure Risk Factors, Understanding Sepsis, High Blood Pressure Tx Admission Data Admit Date/Time: 05/05/25 01:50 Attending Provider: Hakeem Wilson Admit Provider: Ramu Ring Primary Care Provider: Scar Faustin Other Providers: Brian Rojas Other Interventions: Discharge Summary Assessment (RN) Last Done: 05/06/25 11:47 Hospital Stay Data Consultations 05/05/25 01:23 ED Decision to Admit Stat Diagnostic Imagining Performed 05/04/25 23:29 US Testicles [US scrotum/testicle] Stat 05/04/25 23:34 CT Abd and Pelvis [CT abd pelvis IV con only] Stat Discharge Instructions Given to Patient (Per Discharging Provider) You were hospitalized at [facility] from 05/05 to 05/06 for a skin/soft tissue infection involving your scrotum. You were seen by our urology team, who performed a bedside incision and drainage to better characterize your infection. It is possible that this infection was caused by either an infected cyst or a scrotal abscess. Regardless, you were treated with IV antibiotics (vancomycin and Zosyn) while in the hospital. Your wound culture taken at bedside grew a bacteria called Streptococcus. Given that you report resolution of your pain, and your white blood cell count is normal (which does not indicate signs of severe infection), we feel that you are safe to return home at this time on oral antibiotics. New prescriptions on discharge: Augmentin 875-125 mg tablets twice daily x 7 days Please plan to follow-up with your PCP in the next 7 to 10 days for a transitional care appointment. Additionally, you were seen by our certified adapted physical educator while in the hospital for uncontrolled diabetes. Your A1c was elevated at 14.3% on arrival. Having uncontrolled diabetes puts you at increased risk for recurrent infections. It can also lead to immunosuppression and decreased circulation making antibiotics less effective. Please follow the diabetes recommendations listed below. Be sure to use your new Dexcom G7 sensor for closer blood sugar monitoring, check your blood sugar 4 times daily, avoid Mountain Dew, drink plenty of water, and follow-up with your PCP regarding diabetic management as an outpatient. If you develop any new or worsening symptoms, such as fever, chills, intractable groin pain, penile discharge, puslike drainage from the scrotum, lightheadedness, or intractable nausea and vomiting, please return to the emergency department immediately. It was a pleasure taking care of you. Please reach out with any questions or concerns. Sincerely, The Hospital medicine team at [facility] Supervising Physician Co-Signing Physician Notes I did not see or examine the patient. I verified all petit points and agree with Montrell Mejia PA-C with the following exceptions and/or additions: None Total Time Total Time Spent Total Time Spent (In Minutes): 45 Coding Level of Care Code 45188 INP/OBS DISCH >30 MIN Diagnoses Cellulitis of scrotum N49.2 Scrotal abscess N49.2 T2DM (type 2 diabetes mellitus) E11.9"
[2025-05-06 11:47] VITALS: RESP 16; O2SAT 94
[2025-05-06 11:50] VITALS: BP 156/98; PULSE 80
[2025-05-06] MEDS ORDERED: LANTUS PER UNIT CHARGE SC SCH (21:00)
== END 2025-05-06 13:05 | disposition home or self-care (01) | DRG 717 ==
LOC: ED 23:18 → 2N 05-05 01:50 → SUATTDRO 05-05 01:50 → 2N 05-05 02:32
DX: B95.1 Streptococcus, group B, as the cause of diseases classified elsewhere; E03.9 Hypothyroidism, unspecified; Z79.4 Long term (current) use of insulin; F41.9 Anxiety disorder, unspecified; N49.2 Inflammatory disorders of scrotum; K21.9 Gastro-esophageal reflux disease without esophagitis; Z88.5 Allergy status to narcotic agent; Z68.41 Body mass index [BMI] 40.0-44.9, adult; Z88.8 Allergy status to other drugs, medicaments and biological substances; I10 Essential (primary) hypertension; F17.210 Nicotine dependence, cigarettes, uncomplicated; Z79.899 Other long term (current) drug therapy; Z79.84 Long term (current) use of oral hypoglycemic drugs; E66.01 Morbid (severe) obesity due to excess calories; E11.65 Type 2 diabetes mellitus with hyperglycemia; Z79.82 Long term (current) use of aspirin